=== PATIENT | female | born 1985 | race Caucasian/White ===

== ENCOUNTER → 2016-10-04 | Outpatient (CLI) | payer OTHER ==
[~2016-10-04] MED LIST: ACHD5005 PO; IBP600T1 PO; PREN-115 PO
--- NOTE | 2016-10-04 20:27 | Diagnostic Imaging Report ---
INDICATION: survey. FINDINGS: Tilley intrauterine gestation transversely positioned. The anterior placenta appears unremarkable. There is no abruption or previa. The nondilated cervix is 6 cm in length. No anatomical abnormality at the survey is found. Positioning limits spinal assessment. The size is 20 weeks 1 day reflecting normal growth from initial exam. IMPRESSION: 6 cm nondilated cervix. Transverse positioning measuring 20 weeks 1 day. No abnormality at the anatomical survey. Spinal assessment limited on a positional basis. Dictated by: Dictated on workstation # [id number]
== END ==
LOC: RAD 12:42
PROVIDERS: ATTEND Obstetrics & Gynecology
DX: Z36 Encounter for antenatal screening of mother (principal); Z3A.20 20 weeks gestation of pregnancy
CPT/HCPCS: 76805

== ENCOUNTER → 2016-11-30 | Outpatient (CLI) | payer OTHER ==
--- NOTE | 2016-11-30 11:57 | Diagnostic Imaging Report ---
INDICATION: Incomplete survey. Evaluate spine. TECHNIQUE: Multiple real-time grayscale images were obtained over the gravid uterus. COMPARISON: 10/04/2016. FINDINGS: The heart rate is 139 BPM. The placenta is anterior with no placenta previa. The amniotic fluid index is 14.7 cm. The spine was evaluated and demonstrates no obvious abnormality. The lower spine, however, in particular is not well evaluated due to position. IMPRESSION: The lower spine is not well evaluated due to position. Consider another followup exam to better evaluate. Dictated by: Dictated on workstation # [id number]
== END ==
LOC: RAD 10:06
PROVIDERS: ATTEND Obstetrics & Gynecology
DX: Z36 Encounter for antenatal screening of mother (principal); Z3A.00 Weeks of gestation of pregnancy not specified
CPT/HCPCS: 76816

== ENCOUNTER 2017-01-12 08:05 | Outpatient (CLI) | payer OTHER ==
[2017-01-12] VITALS (11 sets, daily range): BP systolic 100–125; BP diastolic 53–79
[~2017-01-12] VITALS: Ht 175.3 cm; Wt 78.9 kg
[2017-01-12] MEDS ORDERED: ONDANSETRON 4 MG/2 ML (SDV) Z0FRAN IVP PRN (08:45)
[2017-01-12] MEDS ORDERED: NS IV 1000 ML 1,000 ML IV SCH (08:45)
[2017-01-12] MEDS ORDERED: CATHETER FLUSH 10 ML SYR IV PRN (09:00)
[2017-01-12 09:19] LABS: BASOPHILS % (AUTO) 0 % (0-10); EOSINOPHILS % (AUTO) 0 % (0-10); LYMPHOCYTES # (AUTO) 1.3 X 10^3 (1.0-4.0); LYMPHOCYTES % (AUTO) 10 % (12-44); MEAN CORPUSCULAR HEMOGLOBIN 30 PG (25-34); MEAN CORPUSCULAR HGB CONC 34 G/DL (32-36); MEAN CORPUSCULAR VOLUME 90 FL (80-99); MEAN PLATELET VOLUME 10.5 FL (7.4-10.4); MONOCYTES # (AUTO) 0.6 X 10^3 (0.0-1.0); MONOCYTES % (AUTO) 4 % (0-12); NEUTROPHILS % (AUTO) 85 % (42-75); PLATELET COUNT 172 10^3/uL (130-400); RED BLOOD COUNT 4.15 10^6/uL (4.35-5.85); RED CELL DISTRIBUTION WIDTH 15.4 % (10.0-14.5); WHITE BLOOD COUNT 12.9 10^3/uL (4.3-11.0)
[2017-01-12 09:38] LABS: ALANINE AMINOTRANSFERASE 15 U/L (0-55); ALBUMIN 3.4 GM/DL (3.2-4.5); ANION GAP 9 MMOL/L (5-14); ASPARTATE AMINO TRANSFERASE 18 U/L (5-34); BILIRUBIN,TOTAL 0.5 MG/DL (0.1-1.0); BLOOD UREA NITROGEN 9 MG/DL (7-18); BUN/CREATININE RATIO 12; CARBON DIOXIDE 25 MMOL/L (21-32); CHLORIDE 104 MMOL/L (98-107); CREATININE SERUM 0.76 MG/DL (0.60-1.30); GFR ESTIMATED > 60; GLUCOSE 101 MG/DL (70-105); MAGNESIUM 1.6 MG/DL (1.8-2.4); POTASSIUM 3.8 MMOL/L (3.6-5.0); SODIUM 138 MMOL/L (135-145); TOTAL PROTEIN 6.6 GM/DL (6.4-8.2)
[2017-01-12] MEDS: D5 LR IV SOLUTION 1,000 ML IV SCH ×2 (10:27→15:46)
--- NOTE | 2017-01-12 10:27 | History & Physical-OB/GYN ---
History of Present Illness History of Present Illness Date of Admission I consulted on this patient on 01/12/17 10:26 Attending Physician Alvino Gustafson DO Admitting Physician Chelsie Yoo MD Consult Allergies and Home Medications Allergies Coded Allergies: oxacillin sodium (Verified Allergy, Mild, HIVES, 03/21/13) Home Medications Hydrocodone Bit/Acetaminophen 1 Tab Tablet, 1 TAB PO Q4H PRN, #15 Ref 0 Prescribed by: FREDA ELISE on 03/24/13 1219 Ibuprofen 600 Mg Tab, 600 MG PO Q6H, #40 Ref 1 Prescribed by: FREDA ELISE on 03/24/13 1219 Vit #108/Iron/Fa 1 Each Tablet, 1 EACH PO DAILY, (Reported) Past Jolkhrd-Xmcykm-Xwidvu Hx Patient Social History Smoking Status: Never a Smoker Physical Abuse Screen: No Sexual Abuse: No Recent Foreign Travel: No Contact w/other who traveled: No Recent Infectious Disease Expo: No Immunizations Up To Date Tetanus Booster (TDap): More than 5yrs Surgeries HX Surgeries: Yes Respiratory Hx Respiratory Disorders: No Cardiovascular Hx Cardiovascular Disorders: No Neurological Hx Neurological Disorders: No Reproductive System Hx : 2 Hx Para: 1 Hx Reproductive Disorders: No Genitourinary Hx Genitourinary Disorders: No Gastrointestinal Hx Gastrointestinal Disorders: No Musculoskeletal Hx Musculoskeletal Disorders: No Endocrine Hx Endocrine Disorders: No HEENT HX ENT Disorders: No Cancer Hx Cancer: No Psychosocial Hx Psychiatric Problems: Yes (ocd ) Behavioral Health Disorders: Depression Integumentary HX Skin/Integumentary Disorder: No Blood Transfusions Hx Blood Disorders: No Adverse Reaction to a Blood Tr: No Physical Exam Physical Exam Vital Signs Vital Signs Date Time Temp Pulse Resp B/P (MAP) Pulse Ox O2 Delivery O2 Flow Rate FiO2 01/12/17 08:13 75 18 100/60 Room Air Capillary Refill : Labs Laboratory Tests 01/12/17 09:05: White Blood Count 12.9H, Red Blood Count 4.15L, Hemoglobin 12.5, Hematocrit 37, Mean Corpuscular Volume 90, Mean Corpuscular Hemoglobin 30, Mean Corpuscular Hemoglobin Concent 34, Red Cell Distribution Width 15.4H, Platelet Count 172, Mean Platelet Volume 10.5H, Neutrophils (%) (Auto) 85H, Lymphocytes (%) (Auto) 10L, Monocytes (%) (Auto) 4, Eosinophils (%) (Auto) 0, Basophils (%) (Auto) 0, Neutrophils # (Auto) 11.0H, Lymphocytes # (Auto) 1.3, Monocytes # (Auto) 0.6, Eosinophils # (Auto) 0.0, Basophils # (Auto) 0.0, Sodium Level 138, Potassium Level 3.8, Chloride Level 104, Carbon Dioxide Level 25, Anion Gap 9, Blood Urea Nitrogen 9, Creatinine 0.76, Estimat Glomerular Filtration Rate > 60, BUN/ Creatinine Ratio 12, Glucose Level 101, Calcium Level 9.0, Magnesium Level 1.6L , Total Bilirubin 0.5, Aspartate Amino Transf (AST/SGOT) 18, Alanine Aminotransferase (ALT/SGPT) 15, Alkaline Phosphatase 96, Total Protein 6.6, Albumin 3.4 FREDA ELISE DO Jan 12, 2017 10:26
[2017-01-12] MEDS ORDERED: MAGNESIUM OXIDE (MAG-OX)400 MG TAB PO NR (10:30)
[2017-01-12] MEDS ORDERED: FERR325C PO (11:16)
[2017-01-12] MEDS ORDERED: SERT25TA PO (11:16)
[2017-01-12] MEDS ORDERED: PREN-53 PO (11:16)
--- NOTE | 2017-01-12 12:26 | Consultation-Cardiology ---
HPI-Cardiology Cardiology Consultation Date of Consultation 01/12/17 Date of Admission Time Seen by Provider: 12:21 Indication: syncope HPI 31 years old lady with history of anxiety, 35 weeks , was in her usual state of health until this morning when she started feeling lightheaded and dizzy while driving her kid to the day care center, sat down in her car for a little bit then felt better, came to our office and felt slightly dizzy, sat down and try to lift her legs then she had a full syncopal episode she was unresponsive for about 15 seconds, was brought up to the labor and delivery suite and started on IV fluid, denied any similar episode, felt slightly dizzy last week but no syncope was reported, denied any chest pain or palpitation, no shortness of breath, noted to be borderline bradycardic and hypotensive, reported that her blood pressure is usually low previously. Home Medications & Allergies Allergies: Coded Allergies: oxacillin sodium (Verified Allergy, Mild, HIVES, 03/21/13) Home Medication List Reviewed: Yes [facility] Hx Patient Social History Marital Status: Employed/Student: employed Alcohol Use: Denies Use Smoking Status: Never a Smoker Recent Foreign Travel: No Recent Infectious Disease Expo: No Physical Abuse Screen: No Sexual Abuse: No Immunizations Up To Date Tetanus Booster (TDap): More than 5yrs Past Medical History no known past medical history Family Medical History Family Medical Hx mother had history of mitral valve prolapse Constitutional: see HPI, dizziness, weakness EENTM: no symptoms reported, see HPI Respiratory: no symptoms reported, see HPI Cardiovascular: see HPI, No chest pain, edema, No Hx of Intervention, No palpitations, syncope, No vascular heart diseas, No other Gastrointestinal: no symptoms reported, see HPI Genitourinary: no symptoms reported, see HPI Musculoskeletal: no symptoms reported, see HPI Skin: no symptoms reported, see HPI Psychiatric/Neurological: No Symptoms Reported, See HPI, Anxiety Reviewed Test Results Reviewed Test Results Lab Laboratory Tests Test 01/12/17 09:05 Range/Units White Blood Count 12.9 H 4.3-11.0 10^3/uL Red Blood Count 4.15 L 4.35-5.85 10^6/uL Hemoglobin 12.5 11.5-16.0 G/DL Hematocrit 37 35-52 % Mean Corpuscular Volume 90 80-99 FL Mean Corpuscular Hemoglobin 30 25-34 PG Mean Corpuscular Hemoglobin Concent 34 32-36 G/DL Red Cell Distribution Width 15.4 H 10.0-14.5 % Platelet Count 172 130-400 10^3/uL Mean Platelet Volume 10.5 H 7.4-10.4 FL Neutrophils (%) (Auto) 85 H 42-75 % Lymphocytes (%) (Auto) 10 L 12-44 % Monocytes (%) (Auto) 4 0-12 % Eosinophils (%) (Auto) 0 0-10 % Basophils (%) (Auto) 0 0-10 % Neutrophils # (Auto) 11.0 H 1.8-7.8 X 10^3 Lymphocytes # (Auto) 1.3 1.0-4.0 X 10^3 Monocytes # (Auto) 0.6 0.0-1.0 X 10^3 Eosinophils # (Auto) 0.0 0.0-0.3 10^3/uL Basophils # (Auto) 0.0 0.0-0.1 10^3/uL Sodium Level 138 135-145 MMOL/L Potassium Level 3.8 3.6-5.0 MMOL/L Chloride Level 104 98-107 MMOL/L Carbon Dioxide Level 25 21-32 MMOL/L Anion Gap 9 5-14 MMOL/L Blood Urea Nitrogen 9 7-18 MG/DL Creatinine 0.76 0.60-1.30 MG/DL Estimat Glomerular Filtration Rate > 60 BUN/Creatinine Ratio 12 Glucose Level 101 70-105 MG/DL Calcium Level 9.0 8.5-10.1 MG/DL Magnesium Level 1.6 L 1.8-2.4 MG/DL Total Bilirubin 0.5 0.1-1.0 MG/DL Aspartate Amino Transf (AST/SGOT) 18 5-34 U/L Alanine Aminotransferase (ALT/SGPT) 15 0-55 U/L Alkaline Phosphatase 96 40-136 U/L Total Protein 6.6 6.4-8.2 GM/DL Albumin 3.4 3.2-4.5 GM/DL Physical Exam Vital Signs Vital Sign - Last 12Hours 01/12/17 08:13 Pulse 75 Resp 18 B/P (MAP) 100/60 O2 Delivery Room Air Capillary Refill : General Appearance: No Apparent Distress, WD/WN Eyes: Bilateral Eye EOMI, Bilateral Eye Normal Inspection, Bilateral Eye PERRL HEENT: PERRL/EOMI, TMs Normal, Normal ENT Inspection, Pharynx Normal Neck: Full Range of Motion, Normal Inspection, Non Tender, Supple, Carotid Bruit Respiratory: Chest Non Tender, Lungs Clear, Normal Breath Sounds, No Accessory Muscle Use, No Respiratory Distress Cardiovascular: Regular Rate, Rhythm, No Edema, No Gallop, No JVD, No Murmur, Normal Peripheral Pulses Gastrointestinal: Normal Bowel Sounds, No Organomegaly, No Pulsatile Mass, Non Tender, Soft, Other () Back: Normal Inspection, No CVA Tenderness, No Vertebral Tenderness Extremity: Normal Capillary Refill, Normal Inspection, Normal Range of Motion, Non Tender, No Calf Tenderness, No Pedal Edema Neurologic/Psychiatric: Alert, Oriented x3, No Motor/Sensory Deficits, Normal Mood/Affect Skin: Normal Color, Warm/Dry Lymphatic: No Adenopathy A/P-Cardiology Admission Diagnosis Syncope Hypomagnesemia Hypotension Assessment/Plan Syncope, appeared to be orthostatic, most probably vasovagal in nature, feeling better at this time, heart rate and blood pressure is better, agree with aggressive IV fluid, educated in length about condition, I will evaluate echocardiogram, evaluate TSH. Her lab work otherwise including electrolytes did not show any significant abnormality except for mild hypomagnesemia. I will replace magnesium. Hypotension, patient is reporting history of hypotension. Continue to monitor, educated on increasing salt and fluid intake. , 35 weeks, followed by Dr. Collin Tate, maintained on Zoloft. Family history of mitral valve prolapse. MOE HURTADO MD Jan 12, 2017 12:26
[2017-01-12] MEDS ORDERED: MAGNESIUM OXIDE (MAG-OX)400 MG TAB PO SCH (13:00)
[2017-01-12] MEDS: BETAMETHASONE ACE/NA PHOS 6 MG/ML (CELESTONE SOLUSPAN) IM SCH (14:01)
[2017-01-12] MEDS ORDERED: MAGN400T6 PO (15:07)
--- NOTE | 2017-01-12 15:11 | Discharge Inst-Women's Service ---
Discharge Inst-Women's Serv Depart Medication/Instructions New, Converted or Re-Newed RX: Transmitted to Pharmacy Instructions continue current meds and add magnesium oxide Increase fluid intake (at least 64 ounces daily) increase salt intake Final Diagnosis vasovagal syncope third trimester hypomagnesemia anxiety Consults/Follow Up Additional Follow Up: Yes (1 week with Collin) Activity Activity: Activity as Tolerated Driving Instructions: You May Drive NO SMOKING: NO SMOKING Nothing Inside Vagina: No Douching, No Diamond, No Tampons Diet Discharge Diet: No Restrictions, Other Diet (high sodium) Symptoms to Report to : Swelling Increased, Wt Gain Consecutive Days, Dizziness/Fainting, Nausea/Vomiting labor, rupture of membranes vaginal bleeding For Any Problems or Questions: Contact Your Physician FREDA ELISE DO Jan 12, 2017 15:11
[2017-01-13] MEDS ORDERED: BETAMETHASONE ACE/NA PHOS 6 MG/ML (CELESTONE SOLUSPAN) ONE ×2 (14:50→15:10)
[2017-01-13] MEDS: BETAMETHASONE ACE/NA PHOS 6 MG/ML (CELESTONE SOLUSPAN) IM SCH (15:00)
== END 2017-01-12 17:20 | disposition home or self-care (01) ==
LOC: LDRP 08:05 → WSo 08:05 → LDRP 15:24 → 3RD 15:24 → WSo 17:20
PROVIDERS: ATTEND Obstetrics & Gynecology
DX: O99.89 Other specified diseases and conditions complicating pregnancy, childbirth and the puerperium (principal); R55 Syncope and collapse; O99.413 Diseases of the circulatory system complicating pregnancy, third trimester; I95.9 Hypotension, unspecified; O99.343 Other mental disorders complicating pregnancy, third trimester; F41.9 Anxiety disorder, unspecified; Z3A.35 35 weeks gestation of pregnancy
CPT/HCPCS: 36415; 80053; 83735; 84443; 85025; 93005; 93306; 96360; 96361; 96372; 99213

== ENCOUNTER 2017-02-10 03:33 | Outpatient (CLI) | payer OTHER ==
[2017-02-10 03:16] VITALS: BP 102/60
[~2017-02-10 03:33] MED LIST changes: +FERR325C PO; +MAGN400T6 PO; +PREN-53 PO; +SERT25TA PO
--- NOTE | 2017-02-13 11:22 | Physician Query-Final Dx ---
KALEB GRIFFITH 02/13/17 1121: Clinic Account Progress/Dx Physician Query: Please give diagnosis Date of Service Feb 10, 2017 at 03:33 VIKY LOWERY DO 02/15/17 1031: Clinic Account Progress/Dx DIAGNOSIS: Diagnosis 38 week IUP, Decreased movement KALEB GRIFFITH Feb 13, 2017 11:21 VIKY LOWERY DO Feb 15, 2017 10:31
[2017-02-15] MEDS ORDERED: IBUP-1773 PO (12:58)
[2017-02-15] MEDS ORDERED: DOCU100C37 PO (12:58)
== END 2017-02-10 04:10 | disposition home or self-care (01) ==
LOC: WSo 03:33 → LDRP 03:34 → WSo 04:10
PROVIDERS: ATTEND Obstetrics & Gynecology
DX: O36.8130 Decreased fetal movements, third trimester, not applicable or unspecified (principal); Z3A.38 38 weeks gestation of pregnancy
CPT/HCPCS: 99213

== ENCOUNTER 2017-02-14 05:19 | Inpatient (IN) | payer OTHER ==
[2017-02-14] VITALS (57 sets, daily range): BP systolic 91–124; BP diastolic 55–78
[~2017-02-14] VITALS: Ht 172.7 cm; Wt 79.1 kg
[2017-02-14 05:41] LABS: BILIRUBIN,URINE NEGATIVE (NEGATIVE); KETONES,URINE NEGATIVE (NEGATIVE); LEUKOCYTE ESTERASE ,URINE NEGATIVE (NEGATIVE); NITRITE,URINE NEGATIVE (NEGATIVE); PH,URINE 6.5 (5-9); PROTEIN,URINE NEGATIVE (NEGATIVE); UROBILINOGEN,URINE NORMAL (NORMAL)
[2017-02-14 05:48] LABS: SQUAMOUS EPITHELIAL CELL,UR 0-2 /HPF
[2017-02-14] MEDS ORDERED: FLUV100T3 PO (06:02)
[2017-02-14] MEDS ORDERED: D5 LR IV SOLUTION 1,000 ML IV ONE (06:27)
[2017-02-14] MEDS: D5 LR IV SOLUTION 1,000 ML IV SCH ×2 (06:50→11:44)
[2017-02-14] MEDS ORDERED: MISOPROSTOL 100 MCG (CYTOTEC) TAB PO ONE (07:15)
[2017-02-14] MEDS ORDERED: D5 LR IV SOLUTION 1,000 ML IV SCH (07:16)
[2017-02-14 07:26] LABS: BASOPHILS % (AUTO) 0 % (0-10); EOSINOPHILS % (AUTO) 0 % (0-10); LYMPHOCYTES # (AUTO) 1.4 X 10^3 (1.0-4.0); LYMPHOCYTES % (AUTO) 14 % (12-44); MEAN CORPUSCULAR HEMOGLOBIN 31 PG (25-34); MEAN CORPUSCULAR HGB CONC 34 G/DL (32-36); MEAN CORPUSCULAR VOLUME 89 FL (80-99); MEAN PLATELET VOLUME 10.4 FL (7.4-10.4); MONOCYTES # (AUTO) 0.6 X 10^3 (0.0-1.0); MONOCYTES % (AUTO) 6 % (0-12); NEUTROPHILS # (AUTO) 7.7 X 10^3 (1.8-7.8); NEUTROPHILS % (AUTO) 80 % (42-75); PLATELET COUNT 177 10^3/uL (130-400); RED BLOOD COUNT 4.02 10^6/uL (4.35-5.85); RED CELL DISTRIBUTION WIDTH 14.7 % (10.0-14.5); WHITE BLOOD COUNT 9.7 10^3/uL (4.3-11.0)
[2017-02-14] MEDS ORDERED: MINERAL OIL CONCENTRATE 99.9% 15 ML UDC TOP PRN (07:30)
[2017-02-14] MEDS ORDERED: OXYTOCIN/NORMAL SALINE 500 ML IV SCH ×2 (11:41→17:40)
--- NOTE | 2017-02-14 11:43 | Progress Note-Standard ---
Standard Progress Note Progress Notes/Assess & Plan Date Seen by Provider: Feb 14, 2017 Time Seen by Provider: 11:40 Progress/Assessment & Plan Patient scheduled for induction today. However, she was admitted in labor. well being today. Vital Sign - Last 12Hours 02/14/17 02/14/17 02/14/17 02/14/17 05:40 07:35 08:05 08:35 Temp 98.4 98.3 Pulse 118 66 68 67 Resp 20 18 18 18 B/P (MAP) 92/62 107/65 106/64 100/63 O2 Delivery Room Air Room Air Room Air Room Air 02/14/17 02/14/17 09:05 09:35 Pulse 69 71 Resp 18 18 B/P (MAP) 105/68 107/69 O2 Delivery Room Air Room Air Laboratory Tests Test 02/14/17 05:30 02/14/17 06:50 Range/Units Urine Color YELLOW Urine Clarity CLEAR Urine pH 6.5 5-9 Urine Specific Cameron 1.010 L 1.016-1.022 Urine Protein NEGATIVE NEGATIVE Urine Glucose (UA) NEGATIVE NEGATIVE Urine Ketones NEGATIVE NEGATIVE Urine Nitrite NEGATIVE NEGATIVE Urine Bilirubin NEGATIVE NEGATIVE Urine Urobilinogen NORMAL NORMAL MG/DL Urine Leukocyte Esterase NEGATIVE NEGATIVE Urine RBC (Auto) NEGATIVE NEGATIVE Urine RBC NONE /HPF Urine WBC NONE /HPF Urine Squamous Epithelial Cells 0-2 /HPF Urine Crystals NONE /LPF Urine Bacteria TRACE /HPF Urine Casts NONE /LPF Urine Mucus SMALL H /LPF Urine Culture Indicated NO White Blood Count 9.7 4.3-11.0 10^3/uL Red Blood Count 4.02 L 4.35-5.85 10^6/uL Hemoglobin 12.3 11.5-16.0 G/DL Hematocrit 36 35-52 % Mean Corpuscular Volume 89 80-99 FL Mean Corpuscular Hemoglobin 31 25-34 PG Mean Corpuscular Hemoglobin Concent 34 32-36 G/DL Red Cell Distribution Width 14.7 H 10.0-14.5 % Platelet Count 177 130-400 10^3/uL Mean Platelet Volume 10.4 7.4-10.4 FL Neutrophils (%) (Auto) 80 H 42-75 % Lymphocytes (%) (Auto) 14 12-44 % Monocytes (%) (Auto) 6 0-12 % Eosinophils (%) (Auto) 0 0-10 % Basophils (%) (Auto) 0 0-10 % Neutrophils # (Auto) 7.7 1.8-7.8 X 10^3 Lymphocytes # (Auto) 1.4 1.0-4.0 X 10^3 Monocytes # (Auto) 0.6 0.0-1.0 X 10^3 Eosinophils # (Auto) 0.0 0.0-0.3 10^3/uL Basophils # (Auto) 0.0 0.0-0.1 10^3/uL AROM clear fluid. Epidural. Augment as needed. FREDA ELISE DO Feb 14, 2017 11:43
[2017-02-14] MEDS ORDERED: OXYTOCIN/NORMAL SALINE 500 ML IV ONE (11:44)
[2017-02-14] MEDS ORDERED: PROMETHAZINE INJ 25 MG/ML (PHENERGAN) AMP IVP PRN (11:45)
[2017-02-14] MEDS ORDERED: fentaNYL INJECTION 100 MCG/2 ML AMP IVP PRN (11:45)
[2017-02-14] MEDS ORDERED: SUFENTA 0.6MCG/ML BUPIVA 0.125 100 ML ONE (12:47)
[2017-02-14] MEDS ORDERED: BUPIVACAINE 0.25% 30 ML (SENSORCAINE) VIAL ONE (12:57)
[2017-02-14] MEDS ORDERED: fentaNYL INJECTION 100 MCG/2 ML AMP ONE (12:57)
[2017-02-14] MEDS ORDERED: LACTATED RINGERS 1,000 ML IV ONE (13:38)
[2017-02-14] MEDS ORDERED: EPIDURAL (SUFENTA 0.6MCG/ML BUPIVA 0.125%) 100 ML BAG EPI SCH (13:45)
[2017-02-14] MEDS ORDERED: ONDANSETRON 4 MG/2 ML (SDV) Z0FRAN IV PRN (13:45)
[2017-02-14] MEDS ORDERED: diphenhydrAMINE 50 MG/ML INJ (BENADRYL) IV PRN (13:45)
[2017-02-14] MEDS ORDERED: CATHETER FLUSH 10 ML SYR IV PRN (13:45)
[2017-02-14] MEDS ORDERED: NALOXONE 0.4 MG/ML 1 ML (NARCAN) VIAL IV PRN (13:45)
[2017-02-14] MEDS ORDERED: CATHETER FLUSH 10 ML SYR IV SCH ×2 (14:00→22:00)
[2017-02-14] MEDS ORDERED: LIDOCAINE/EPI 1%-1:200,000 (XYLOCAINE) 30 ML VIAL ONE (16:39)
--- NOTE | 2017-02-14 17:42 | OB Labor & Delivery Record ---
Vag Delivery Note Vag Delivery Note Date of Delivery: 02/14/17 Preoperative Diagnosis: Magali Wagner is a 31 /Para 2 / 1, Gestational Age 39 6/7 weeks in early labor, augmented Postoperative Diagnosis: Same Surgeon: FREDA ELISE Anesthesia: epidural Delivery Type: spontaneous vaginal Findings: Viable female infant, apgars 5/7/8, weight pending Lacerations: 2nd degree Intact placenta with 3 vessel cord. No nuchal cord, body cord or shoulder dystocia Estimated Blood Loss: 250 ml Complications: None Condition: Stable Description of Procedure: The patient is a 31 /Para 2 / 1,Gestational Age 39 6/7 weeks in early labor . She was admitted and informed consent was obtained. Her labor course was remarkable for AROM and augmentation. She progressed to complete dilatation and began to push. She was then set up for delivery. The infant's head was delivered atraumatically in the OA position. The shoulders and remainder of the 's body were then delivered without difficulty. Upon delivery, the head was held below the level of the perineum and the mouth and nares were bulb suctioned. The cord was doubly clamped and cut and the infant was handed off to the pediatric staff. An intact placenta with 3-vessel cord delivered via Chery and there was found to be minimal bleeding.~ Vigorous fundal massage was performed and the fundus was found to be firm. IV oxytocin was given. Examination of the vagina and perineum revealed a 2nd laceration repaired in the usual fashion with 3-0 vicryl suture. Following the repair, sponge, instrument and needle counts were correct. Mom and baby were both in stable condition in the labor suite. Vitals - Labs Vital Signs - I&O Vital Signs Date Time Temp Pulse Resp B/P (MAP) Pulse Ox O2 Delivery O2 Flow Rate FiO2 02/14/17 11:35 97.8 70 18 105/65 Room Air 02/14/17 11:05 65 18 109/66 Room Air 02/14/17 10:35 98.7 67 18 104/63 Room Air 02/14/17 10:05 72 18 108/58 Room Air 02/14/17 09:35 71 18 107/69 Room Air 02/14/17 09:05 69 18 105/68 Room Air 02/14/17 08:35 67 18 100/63 Room Air 02/14/17 08:05 68 18 106/64 Room Air 02/14/17 07:35 98.3 66 18 107/65 Room Air 02/14/17 05:40 98.4 118 20 92/62 Room Air Labs Laboratory Tests 02/14/17 05:30: Urine Color YELLOW, Urine Clarity CLEAR, Urine pH 6.5, Urine Specific Norris 1.010L, Urine Protein NEGATIVE, Urine Glucose (UA) NEGATIVE, Urine Ketones NEGATIVE, Urine Nitrite NEGATIVE, Urine Bilirubin NEGATIVE, Urine Urobilinogen NORMAL, Urine Leukocyte Esterase NEGATIVE, Urine RBC (Auto) NEGATIVE, Urine RBC NONE, Urine WBC NONE, Urine Squamous Epithelial Cells 0-2, Urine Crystals NONE, Urine Bacteria TRACE, Urine Casts NONE, Urine Mucus SMALLH, Urine Culture Indicated NO 02/14/17 06:50: White Blood Count 9.7, Red Blood Count 4.02L, Hemoglobin 12.3, Hematocrit 36, Mean Corpuscular Volume 89, Mean Corpuscular Hemoglobin 31, Mean Corpuscular Hemoglobin Concent 34, Red Cell Distribution Width 14.7H, Platelet Count 177, Mean Platelet Volume 10.4, Neutrophils (%) (Auto) 80H, Lymphocytes (%) (Auto) 14 , Monocytes (%) (Auto) 6, Eosinophils (%) (Auto) 0, Basophils (%) (Auto) 0, Neutrophils # (Auto) 7.7, Lymphocytes # (Auto) 1.4, Monocytes # (Auto) 0.6, Eosinophils # (Auto) 0.0, Basophils # (Auto) 0.0 FREDA EILSE DO Feb 14, 2017 17:42
[2017-02-14] MEDS ORDERED: BENZOCAINE/MENTHOL (DERMOPLAST) 56 ML CAN TP PRN (17:45)
[2017-02-14] MEDS ORDERED: PATIENT MAY USE OWN MED,SINGLE MED PO SCH (17:45)
[2017-02-14] MEDS ORDERED: TETANUS,DIPTH,PERTUSS P/F (BOOSTRIX) 0.5 ML VIAL IM ONE (17:45)
[2017-02-14] MEDS ORDERED: WITCH HAZEL(TUCKS) 40 EA JAR TOP PRN (17:45)
[2017-02-14] MEDS ORDERED: MEASLES,MUMPS,RUBELLA 1 EA INJ SQ ONE (17:45)
[2017-02-14] MEDS ORDERED: HYDROcodone/APAP 5 MG/325 MG (LORTAB) TAB PO PRN (17:45)
[2017-02-14] MEDS: IBUPROFEN 600 MG (MOTRIN) TAB PO SCH (18:30)
[2017-02-14] MEDS: DOCUSATE SODIUM 100 MG (COLACE) CAP PO SCH (21:10)
[2017-02-15 00:25] VITALS: BP 98/55
[2017-02-15] MEDS: IBUPROFEN 600 MG (MOTRIN) TAB PO SCH ×3 (00:25→14:13)
[2017-02-15 05:30] VITALS: BP 90/54
[2017-02-15 06:06] LABS: BASOPHILS % (AUTO) 0 % (0-10); EOSINOPHILS # (AUTO) 0.1 10^3/uL (0.0-0.3); EOSINOPHILS % (AUTO) 1 % (0-10); LYMPHOCYTES # (AUTO) 1.7 X 10^3 (1.0-4.0); LYMPHOCYTES % (AUTO) 14 % (12-44); MEAN CORPUSCULAR HEMOGLOBIN 31 PG (25-34); MEAN CORPUSCULAR HGB CONC 34 G/DL (32-36); MEAN CORPUSCULAR VOLUME 90 FL (80-99); MEAN PLATELET VOLUME 9.9 FL (7.4-10.4); MONOCYTES # (AUTO) 0.8 X 10^3 (0.0-1.0); MONOCYTES % (AUTO) 7 % (0-12); NEUTROPHILS # (AUTO) 9.1 X 10^3 (1.8-7.8); NEUTROPHILS % (AUTO) 79 % (42-75); PLATELET COUNT 166 10^3/uL (130-400); RED CELL DISTRIBUTION WIDTH 14.6 % (10.0-14.5); WHITE BLOOD COUNT 11.6 10^3/uL (4.3-11.0)
[2017-02-15] MEDS ORDERED: PRENATAL VITAMIN 1 EA TAB PO SCH (07:00)
[2017-02-15 08:14] VITALS: BP 101/67
--- NOTE | 2017-02-15 08:28 | Postpartum Progress Note ---
Note Note Day # 1 s/p Subjective: Patient is without complaints. Ambulating, voiding. Tolerating a regular diet without nausea or vomiting. Normal lochia. Pain is well controlled with oral pain medications. breast feeding. Objective: Laboratory Tests Test 02/15/17 05:52 Range/Units White Blood Count 11.6 H 4.3-11.0 10^3/uL Red Blood Count 3.50 L 4.35-5.85 10^6/uL Hemoglobin 10.7 L 11.5-16.0 G/DL Hematocrit 31 L 35-52 % Mean Corpuscular Volume 90 80-99 FL Mean Corpuscular Hemoglobin 31 25-34 PG Mean Corpuscular Hemoglobin Concent 34 32-36 G/DL Red Cell Distribution Width 14.6 H 10.0-14.5 % Platelet Count 166 130-400 10^3/uL Mean Platelet Volume 9.9 7.4-10.4 FL Neutrophils (%) (Auto) 79 H 42-75 % Lymphocytes (%) (Auto) 14 12-44 % Monocytes (%) (Auto) 7 0-12 % Eosinophils (%) (Auto) 1 0-10 % Basophils (%) (Auto) 0 0-10 % Neutrophils # (Auto) 9.1 H 1.8-7.8 X 10^3 Lymphocytes # (Auto) 1.7 1.0-4.0 X 10^3 Monocytes # (Auto) 0.8 0.0-1.0 X 10^3 Eosinophils # (Auto) 0.1 0.0-0.3 10^3/uL Basophils # (Auto) 0.0 0.0-0.1 10^3/uL Vital Sign - Last 12Hours 02/14/17 02/15/17 02/15/17 02/15/17 22:40 00:25 05:30 08:14 Temp 98.4 98.6 97.4 97.7 Pulse 81 74 72 66 Resp 18 18 18 18 B/P (MAP) 95/60 98/55 90/54 101/67 Pulse Ox 97 96 97 97 O2 Delivery Room Air Room Air Room Air Room Air Intake and Output 02/15/17 00:00 Intake Total 2200 ml Balance 2200 ml Physical Exam: General - Alert and oriented, no apparent distress Abdomen - Soft, appropriately tender to palpation, non-distended, fundus firm at umbilicus Extremities - no edema, negative Mary's bilaterally Assessment: 1. post- day # 1, status post spon vaginal delivery. Recovering well, hemodynamically stable 2. Anxiety d/o, stable Plan: Routine care. Encourage breast feeding. Encourage ambulation. Ferrous sulfate supplementation. Plan for discharge Vitals - Labs Vital Signs - I&O Vital Signs Date Time Temp Pulse Resp B/P (MAP) Pulse Ox O2 Delivery O2 Flow Rate FiO2 02/15/17 08:14 97.7 66 18 101/67 97 Room Air 02/15/17 05:30 97.4 72 18 90/54 97 Room Air 02/15/17 00:25 98.6 74 18 98/55 96 Room Air 02/14/17 22:40 98.4 81 18 95/60 97 Room Air 02/14/17 19:44 18 101/64 Room Air 02/14/17 19:29 69 18 97/62 Room Air 02/14/17 19:15 64 18 102/65 Room Air 02/14/17 18:59 76 18 105/68 Room Air 02/14/17 18:44 18 111/75 Room Air 02/14/17 18:30 83 18 112/68 Room Air 02/14/17 18:15 98.2 73 18 104/58 Room Air 02/14/17 17:59 80 18 124/76 Room Air 02/14/17 17:44 78 18 114/71 Room Air 02/14/17 17:29 81 18 116/72 Room Air 02/14/17 17:17 83 18 118/78 Room Air 02/14/17 17:02 85 18 115/73 Room Air 02/14/17 16:47 75 18 113/72 Room Air 02/14/17 16:32 77 18 93/63 Room Air 02/14/17 16:15 77 18 105/63 Non Rebreather 15.00 02/14/17 16:02 63 18 108/63 Non Rebreather 15.00 02/14/17 15:46 64 18 111/74 Non Rebreather 15.00 02/14/17 15:31 97.6 66 18 109/74 Room Air 02/14/17 15:15 71 18 106/71 Room Air 02/14/17 15:01 64 18 105/68 Room Air 02/14/17 14:48 65 18 111/70 Room Air 02/14/17 14:29 60 18 107/61 Room Air 02/14/17 14:26 61 18 110/64 99 Room Air 02/14/17 14:20 66 18 116/64 100 Room Air 02/14/17 14:16 69 18 108/62 98 Non Rebreather 15.00 02/14/17 14:11 58 18 117/75 100 Non Rebreather 15.00 02/14/17 14:06 63 18 113/55 99 Non Rebreather 15.00 02/14/17 14:01 64 18 108/68 98 Room Air 02/14/17 13:53 62 18 113/64 98 Room Air 02/14/17 13:50 98.0 60 18 108/65 Room Air 02/14/17 13:47 61 18 108/61 98 Room Air 02/14/17 13:44 64 18 106/59 Room Air 02/14/17 13:41 62 18 99/59 96 Room Air 02/14/17 13:38 61 18 101/61 95 Room Air 02/14/17 13:35 63 18 106/61 Room Air 02/14/17 13:32 68 18 103/62 95 Room Air 02/14/17 13:29 59 18 105/62 Room Air 02/14/17 13:26 72 18 108/65 98 Room Air 02/14/17 13:23 71 18 111/72 97 Room Air 02/14/17 13:20 68 18 111/73 Room Air 02/14/17 13:17 67 18 115/76 98 Room Air 02/14/17 13:14 76 18 113/74 Room Air 02/14/17 13:11 74 18 114/70 100 Room Air 02/14/17 13:08 81 18 105/68 97 Room Air 02/14/17 12:37 74 18 91/64 Room Air 02/14/17 12:05 64 18 97/55 Room Air 02/14/17 11:35 97.8 70 18 105/65 Room Air 02/14/17 11:05 65 18 109/66 Room Air 02/14/17 10:35 98.7 67 18 104/63 Room Air 02/14/17 10:05 72 18 108/58 Room Air 8/8/17 09:35 71 18 107/69 Room Air 02/14/17 09:05 69 18 105/68 Room Air 02/14/17 08:35 67 18 100/63 Room Air I & O 02/15/17 07:00 Intake Total 3200 ml Balance 3200 ml Labs Laboratory Tests 02/15/17 05:52: White Blood Count 11.6H, Red Blood Count 3.50L, Hemoglobin 10.7L, Hematocrit 31L , Mean Corpuscular Volume 90, Mean Corpuscular Hemoglobin 31, Mean Corpuscular Hemoglobin Concent 34, Red Cell Distribution Width 14.6H, Platelet Count 166, Mean Platelet Volume 9.9, Neutrophils (%) (Auto) 79H, Lymphocytes (%) (Auto) 14 , Monocytes (%) (Auto) 7, Eosinophils (%) (Auto) 1, Basophils (%) (Auto) 0, Neutrophils # (Auto) 9.1H, Lymphocytes # (Auto) 1.7, Monocytes # (Auto) 0.8, Eosinophils # (Auto) 0.1, Basophils # (Auto) 0.0 FREDA ELISE DO Feb 15, 2017 08:28
[2017-02-15] MEDS ORDERED: FERROUS SULF 325 MG (IRON) TAB PO SCH (09:00)
[2017-02-15 12:35] VITALS: BP 93/59
[2017-02-15] MEDS ORDERED: DOCU100C37 PO (12:58)
[2017-02-15] MEDS ORDERED: IBUP-1773 PO (12:58)
--- NOTE | 2017-02-15 13:00 | Discharge Inst-Simple/Standard ---
Discharge Inst-Standard Patient Instructions/Follow Up Plan of Care/Instructions/FU: return in 2 weeks and 6 weeks Activity as Tolerated: Yes Discharge Diet: No Restrictions Return to [facility] For: bleeding greater than 1 pad per hour, foul vaginal discharge, excessive pain FREDA ELISE DO Feb 15, 2017 13:00
--- NOTE | 2017-02-15 14:04 | Anesthesia-Regional Post-Op ---
Regional Patient Condition Mental Status: Alert, Oriented x3 Circulation: Same as Pre-Op Headache: Absent Sensation: Full Recovery Motor Block: Absent Post Op Complications Complications None Follow Up Care/Instructions Patient Instructions None needed. Anesthesia/Patient Condition Patient is doing well, no complaints, stable vital signs, no apparent adverse anesthesia problems. No complications reported per nursing. NICOLÁS ARTIS CRNA Feb 15, 2017 14:04
[2017-02-15] MEDS: DOCUSATE SODIUM 100 MG (COLACE) CAP PO SCH (14:13)
--- NOTE | 2017-02-17 15:15 | Physician Query-Final Dx ---
SONAL MCMAHON 02/17/17 1515: Final Diagnosis Give Final Diagnosis Please give Final Diagnosis FREDA ELISE DO 03/09/17 0636: Final Diagnosis Give Final Diagnosis labor at term vaginal delivery 2nd degree laceration epidural OCD. SONAL MCMAHON Feb 17, 2017 15:15 FREDA ELISE DO Mar 09, 2017 06:36
== END 2017-02-15 18:55 | disposition home or self-care (01) | DRG 775 ==
LOC: WSo 05:19 → LDRP 05:20 → WSo 07:00 → LDRP 07:00 → 3RD 09:21 → LDRP 09:21
PROVIDERS: ADMIT Obstetrics & Gynecology; ATTEND Obstetrics & Gynecology
PROC: 0KQM0ZZ Repair Perineum Muscle, Open Approach (ICD-10-PCS; principal; 2017-02-14)
PROC: 10E0XZZ Delivery of Products of Conception, External Approach (ICD-10-PCS; 2017-02-14)
DX: O70.1 Second degree perineal laceration during delivery (principal); O99.345 Other mental disorders complicating the puerperium; F41.9 Anxiety disorder, unspecified; Z3A.39 39 weeks gestation of pregnancy; Z37.0 Single live birth
CPT/HCPCS: 36415; 81000; 85025; 86850; 86900; 86901; 99212

== ENCOUNTER → 2018-08-28 | Outpatient (CLI) | payer OTHER ==
[2018-08-28 09:39] LABS: BASOPHILS % (AUTO) 0 % (0-10); EOSINOPHILS # (AUTO) 0.1 10^3/uL (0.0-0.3); EOSINOPHILS % (AUTO) 2 % (0-10); HEMATOCRIT 42 % (35-52); HEMOGLOBIN 14.8 G/DL (11.5-16.0); LYMPHOCYTES # (AUTO) 1.6 X 10^3 (1.0-4.0); LYMPHOCYTES % (AUTO) 26 % (12-44); MEAN CORPUSCULAR HEMOGLOBIN 30 PG (25-34); MEAN CORPUSCULAR HGB CONC 35 G/DL (32-36); MEAN CORPUSCULAR VOLUME 85 FL (80-99); MEAN PLATELET VOLUME 10.3 FL (7.4-10.4); MONOCYTES # (AUTO) 0.4 X 10^3 (0.0-1.0); MONOCYTES % (AUTO) 7 % (0-12); NEUTROPHILS % (AUTO) 65 % (42-75); PLATELET COUNT 242 10^3/uL (130-400); RED CELL DISTRIBUTION WIDTH 12.7 % (10.0-14.5); WHITE BLOOD COUNT 6.1 10^3/uL (4.3-11.0)
[2018-08-28 09:59] LABS: ALANINE AMINOTRANSFERASE 11 U/L (0-55); ALBUMIN 4.7 GM/DL (3.2-4.5); ALKALINE PHOSPHATASE 66 U/L (40-136); BILIRUBIN,TOTAL 0.8 MG/DL (0.1-1.0); BUN/CREATININE RATIO 11; CALCIUM 10.3 MG/DL (8.5-10.1); CARBON DIOXIDE 27 MMOL/L (21-32); CHLORIDE 103 MMOL/L (98-107); CHOLESTEROL 145 MG/DL (< 200); CREATININE SERUM 0.98 MG/DL (0.60-1.30); GFR ESTIMATED > 60; GLUCOSE 93 MG/DL (70-105); HDL CHOLESTEROL 50 MG/DL (40-60); POTASSIUM 4.3 MMOL/L (3.6-5.0); SODIUM 140 MMOL/L (135-145); TOTAL PROTEIN 7.6 GM/DL (6.4-8.2); TRIGLYCERIDES 67 MG/DL (<150); VLDL CHOLESTEROL 13 MG/DL (5-40)
== END ==
LOC: LAB 09:16
PROVIDERS: ATTEND Nurse Practitioner Family
DX: Z00.00 Encounter for general adult medical examination without abnormal findings (principal); F41.1 Generalized anxiety disorder
CPT/HCPCS: 36415; 80053; 80061; 84443; 85025

== ENCOUNTER → 2018-08-29 | Outpatient (CLI) | payer OTHER ==
[~2018-08-29] MED LIST changes: +DOCU100C37 PO; +FLUV100T3 PO; +IBUP-1773 PO
== END ==
LOC: LAB 12:04
PROVIDERS: ATTEND Nurse Practitioner Family
DX: E83.52 Hypercalcemia (principal)
CPT/HCPCS: 36415; 83970

== ENCOUNTER 2018-09-23 10:58 | Emergency (ER) | payer OTHER ==
[~2018-09-23] VITALS: Ht 170.2 cm; Wt 60.3 kg
--- OUTSIDE RECORDS SUMMARY | 2018-09-23 11:04 | XMS REPORT | CCD ---
Author Author [facility] Address [address] [place] [address] Phone Care Team Providers Care Muleser Name Role Phone PP Unavailable CCM Unavailable Summary Purpose Interface Exchange Insurance Providers Payer name Policy type / Coverage type Covered green party ID Effective Begin Date Effective End Date [facility] [place] [id number] Unknown Family history Side Diagnosis Age At Onset No Family Disease Entered N/A Grandfather Diagnosis Age At Onset Hypertension Unknown Father Diagnosis Age At Onset Hypertension Unknown Mother Diagnosis Age At Onset Anemia Unknown Social History Social History Element Codes Description Effective Dates Number of children Unknown 2 05/03/2017 Employment Unknown 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 Unknown Has never used illegal drugs 03/06/2011 Marital status Unknown 03/01/[address]: 962822430 Never smoker 03/01/[address]: 005485383 Never drinks alcohol 03/01/2011 Allergies, Adverse Reactions, Alerts Substance Reaction Codes Entered Date Inactivated Date Status PROSTAPHLIN Unknown 03/01/2011 No Inactive Date Active Past Medical History Illness Codes Condition Status Onset Date Resolved Date Encounter for general adult medical examination with abnormal findings ICD-9: V70.0 ICD-10: Z00.01 Active 08/22/2018 Unknown Generalized anxiety disorder ICD-9: 300.00 ICD-10: F41.1 Active 08/22/2018 Unknown Mastitis without abscess ICD-9: 611.0 ICD-10: N61.0 Active 02/21/2018 Unknown Generalized anxiety disorder ICD-9: 300.02 ICD-10: F41.1 Active 06/14/2017 Unknown Major depressive disorder, recurrent, mild ICD-9: 296.31 ICD-10: F33.0 Active 05/03/2017 Unknown Superficial foreign body of right thumb, initial encounter ICD-9: 915.6 ICD-10: S60.351A Active 06/14/2017 Unknown Encounter for general adult medical examination without abnormal findings ICD-9: V70.0 ICD-10: Z00.00 Active 05/03/2017 Unknown Encounter for gynecological examination (general) (routine ) without abnormal findings ICD-9: V72.31 ICD-10: Z01.419 Active 12/16/2015 Unknown STREP SORE THROAT ICD- 9: 034.0 Active 12/09/2014 Unknown Routine medical exam ICD-9: V70.0 Active 11/17/2014 Unknown Mastitis ICD-9: 611.0 Active 11/25/2013 Unknown ACUTE URI ICD-9: 465.9 Active 07/01/2013 Unknown COUGH ICD-9: 786.2 Active 07/01/2013 Unknown Pruritic condition ICD -9: 698.9 Active 11/28/2011 Unknown Contact with potentially hazardous body fluids ICD-9: V15.85 Active 08/15/2011 Unknown MARGE (generalized anxiety disorder) ICD-9: 300.02 Active 2010 Unknown Obsessive compulsive disorder ICD-9: 300.3 Active 05/18/2011 Unknown Allergies Unknown Active 03/01/2011 Unknown ANXIETY STATE ICD-9: 300.00 Active 03/01/2011 Unknown 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 Active 03/01/2011 Unknown Contact dermatitis and eczema due to plant ICD-9: 692.6 Active 03/01/2011 Unknown Problems Condition Codes Effective Dates Condition Status Encounter for general adult medical examination with abnormal findings ICD-9: V70.0 ICD-10: Z00.01 08/22/2018 Active Generalized anxiety disorder ICD-9: 300.00 ICD-10: F41.1 08/22/2018 Active Mastitis without abscess ICD-9: 611.0 ICD-10: N61.0 02/21/2018 Active Generalized anxiety disorder ICD-9: 300.02 ICD-10: F41.1 06/14/2017 Active Major depressive disorder, recurrent, mild ICD-9: 296.31 ICD-10: F33.0 05/03/2017 Active Superficial foreign body of right thumb, initial encounter ICD-9: 915.6 ICD-10: S60.351A 06/14/2017 Active Encounter for general adult medical examination without abnormal findings ICD-9: V70.0 ICD-10: Z00.00 05/03/2017 Active Encounter for gynecological examination (general) (routine ) without abnormal findings ICD-9: V72.31 ICD-10: Z01.419 12/16/2015 Active STREP SORE THROAT ICD- 9: 034.0 12/09/2014 Active Routine medical exam ICD-9: V70.0 11/17/2014 Active Mastitis ICD-9: 611.0 11/25/2013 Active ACUTE URI ICD-9: 465.9 07/01/2013 Active COUGH ICD-9: 786.2 07/01/2013 Active Pruritic condition ICD -9: 698.9 11/28/2011 Active Contact with potentially hazardous body fluids ICD-9: V15.85 08/15/2011 Active MARGE (generalized anxiety disorder) ICD-9: 300.02 05/18/2011 Active Obsessive compulsive disorder ICD-9: 300.3 05/18/2011 Active Allergies Unknown 03/01/2011 Active ANXIETY STATE ICD-9: 300.00 03/01/2011 Active 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 03/01/2011 Active Contact dermatitis and eczema due to plant ICD-9: 692.6 03/01/2011 Active Medications Medication Codes Instructions Start Date Stop Date Status Fill Instructions fluvoxamine 100 mg tablet RxNorm: 337420 1 Tablet(s) PO BID 08/16/2019 Active Keflex 500 mg capsule RxNorm: 384783 1 Capsule(s) PO TID 201703/02/2018 Inactive fluvoxamine 100 mg tablet RxNorm: 193933 1.5 Tablet(s) PO daily 100mg in morning and 50mg at night 09/01/2017 08/21/2018 Inactive fluvoxamine 100 mg tablet RxNorm: 784417 1.5 Tablet(s) PO daily 100mg in morning and 50mg at night 08/21/2017 08/31/2017 Inactive fluvoxamine 100 mg tablet RxNorm: 973229 1.5 Tablet(s) PO daily 100mg in morning and 50mg at night 05/03/2017 08/20/2017 Inactive Luvox CR 100 mg capsule,extended release RxNorm: 502601 1 Capsule(s) PO daily 02/06/2017 02/06/2017 Inactive TAKE 1 CAPSULE BY MOUTH DAILY;Patient requests 90 day supply Luvox CR 100 mg capsule,extended release RxNorm: 173654 1 Capsule(s) PO daily 07/31/2015 04/25/2016 Inactive TAKE 1 CAPSULE BY MOUTH DAILY;Patient requests 90 day supply nystatin 100,000 unit/mL oral suspension RxNorm: 976481 5 Milliliter(s) SWISH AND SWALLOW PO QID x7 days Thrush 12/18/2014 12/24/2014 Inactive Levaquin 500 mg tablet RxNorm: 852450 1 Tablet(s) PO daily 05/201512/20/2014 Inactive prednisone 20 mg tablet RxNorm: 938775 1 Tablet(s) PO BID 12/1212/16/2014 Inactive Levaquin 500 mg tablet RxNorm: 899273 1 Tablet(s) PO daily 11/201412/17/2014 Inactive Levaquin 500 mg tablet RxNorm: 602284 1 Tablet(s) PO daily 11/201412/11/2014 Inactive prednisone 20 mg tablet RxNorm: 215882 1 Tablet(s) PO BID 12/1212/11/2014 Inactive Zithromax Z-Tobin 250 mg tablet RxNorm: 510715 1 Tablet(s) PO daily 12/10/2014 12/14/2014 Inactive Zpack as directed Luvox CR 100 mg capsule,extended release RxNorm: 555271 1 Capsule(s) PO daily 06/24/2014 07/30/2015 Inactive TAKE 1 CAPSULE BY MOUTH DAILY;Patient requests 90 day supply Keflex 500 mg capsule RxNorm: 780073 1 Capsule(s) PO TID 201312/01/2013 Inactive Flonase 50 mcg/actuation nasal spray,suspension RxNorm: 966857 2 [place] NASAL daily SPRAY 2 SPRAYS IN EACH NOSTRIL DAILY 11/04/2013 05/02/2014 Inactive Flonase 50 mcg/actuation nasal spray,suspension RxNorm: 428774 [place] NASAL SPRAY 2 SPRAYS IN EACH NOSTRIL DAILY 11/04/2013 11/03/2013 Inactive Flonase 50 mcg/actuation nasal spray,suspension RxNorm: 803735 2 [place] NASAL daily 07/01/2013 07/07/2013 Inactive Luvox 50 mg tablet RxNorm: 721621 1 Tablet(s) PO BID 50mg bid x 1week, then 50mg in am 25mg at hs x 1wk then 25mg bid, x 1 week then 25mg daily x 1wk then stop 07/18/2012 08/16/2012 Inactive fluticasone 50 mcg/actuation Nasal [place], Susp RxNorm: 5484627 2 [place] NASAL BID 03/21/2012 04/14/2013 Inactive Kenalog 40 mg/mL Susp for Injection RxNorm: 3691152 1 Milliliter(s) Inj 11/28/2011 11/28/2011 Inactive Ativan 0.5 mg Tab RxNorm: 158270 1 Tablet(s) PO TID PRN No Stop Date Active q am and q pm and prn anxiety attack Luvox CR 100 mg 24 hr Cap RxNorm: 363016 Capsule(s) PO 201106/23/2014 Inactive TAKE 1 CAPSULE BY MOUTH DAILY;Patient requests 90 day supply Luvox CR 100 mg 24 hr Cap RxNorm: 367988 1 Capsule(s) PO daily 08/15/2011 08/16/2011 Inactive Lexapro 10 mg Tab RxNorm: 876483 1 Tablet(s) PO daily 201007/15/2011 Inactive prednisone 5 mg Tabs in a Dose Pack RxNorm: 840539 Tablet(s) PO 03/03/2011 07/15/2011 Inactive triamcinolone acetonide (PF) 40 mg/mL Intraocular Susp RxNorm: 7111133 1 Milliliter(s) IM 03/01/2011 07/15/2011 Inactive + Iron oral RxNorm: oral No Start Date Active nystatin 100,000 unit/mL oral suspension RxNorm: 847796 Unit(s) PO No Start Date 12/17/2014 Inactive Biotene oral RxNorm: oral No Start Date 02/2016 Inactive prednisone 5 mg Tabs in a Dose Pack RxNorm: 784419 Tablet(s) PO No Start Date 03/02/2011 Inactive Zithromax Z-Tobin 250 mg tablet RxNorm: 250135 Tablet(s) PO No Start Date 11/03/2013 Inactive fluticasone 50 mcg/actuation Nasal [place], Susp RxNorm: 2060049 2 [place] NASAL BID No Start Date 03/20/2012 Inactive Celexa 20 mg Tab RxNorm: 925522 1 Tablet(s) PO daily No Start Date 07/18/2012 Inactive Abilify 2 mg Tab RxNorm: 453393 1 Tablet(s) PO daily No Start Date 07/18/2012 Inactive Deplin Oral RxNorm: Oral No Start Date 03/2013 Inactive Lexapro 10 mg Tab RxNorm: 280159 Tablet(s) PO daily No Start Date 05/17/2011 Inactive prednisone 10 mg Tab RxNorm: 813410 Tablet(s) PO UD prednisone 10 mg - 4 x 2 days , then 3 x2 days, then 2x days, then 1 x 2 days, then stop No Start Date 07/18/2012 Inactive promethazine 25 mg tablet RxNorm: 489187 1 Tablet(s) PO Q6 PRN No Start Date 12/16/2015 Inactive Ativan 0.5 mg Tab RxNorm: 040978 1 Tablet(s) PO TID PRN No Start Date 09/06/2011 Inactive q am and q pm and prn anxiety attack Medication Administered Medication Codes Instructions Start Date Status Kenalog 40 mg/mL Susp for Injection RxNorm: 5451672 1Milliliter 11/28/2011 No longer Active Immunizations Vaccine Codes Date Status Influenza CVX: 141 04/20/2017 completed Assessments Condition Codes Effective Dates Generalized anxiety disorder ICD-10: F41.1 ICD-9: 300.00 08/22/2018 Encounter for general adult medical examination with abnormal findings ICD-10: Z00.01 ICD-9: V70.0 08/22/2018 Mastitis without abscess ICD-10: N61.0 ICD-9: 611.0 02/21/2018 Superficial foreign body of right thumb, initial encounter ICD-10: S60.351A ICD-9: 915.6 06/14/2017 Generalized anxiety disorder ICD-10: F41.1 ICD-9: 300.02 06/14/2017 Major depressive disorder, recurrent, mild ICD-10: F33.0 ICD-9: 296.31 06/14/2017 Encounter for general adult medical examination without abnormal findings ICD-10: Z00.00 ICD-9: V70.0 05/03/2017 Encounter for gynecological examination (general) (routine) without abnormal findings ICD-10: Z01.419 ICD-9: V72.31 12/17/2015 STREP SORE THROAT ICD-9: 034.0 2014 Routine medical exam ICD-9: V70.0 2014 OBSESSIVE, COMPULSIVE DISEASE ICD-9: 300.3 11/17/2014 MARGE (generalized anxiety disorder) ICD-9: 300.02 11/17/2014 Mastitis ICD-9: 611.0 11/25/2013 ACUTE URI ICD-9: 465.9 07/01/2013 COUGH ICD-9: 786.2 07/01/2013 ANXIETY STATE ICD-9: 300.00 07/18/2012 DERMATITIS DUE TO PLANT ICD-9: 692.6 Pruritic condition ICD-9: 698.9 2011 Contact with potentially hazardous body fluids ICD-9: V15.85 08/15/2011 Reason For Visit Reason For Visit Effective Dates Notes depression 08/22/2018 breast complaint 02/21/2018 depression 06/14/2017 well woman exam (18-39 years) 05/03/2017 well woman exam (18-39 years) 12/17/2015 sore throat 12/10/2014 anxiety 11/17/2014 skin lesion 11/25/2013 sinus congestion 07/01/2013 anxiety 07/18/2012 rash 11/28/2011 poison den - pt has taken oral prednisone, but still has poison den anxiety 08/15/2011 Pt states that she is in therapy with Dr. Serrano but would like to discuss med changes anxiety 05/18/2011 has been taking deplin , but it isn't helping. Pt states that her anxiety comes and goes throughout the day, but she has noticed its worse when she's driving - she stated she hasn' t had any auto accidents. pt says she can feel her heart race and chest tightness rash 03/01/2011 Results Observation Observation Code Item Item Code Result Date Comp Metabolic Meb870 NA 140 mEq/L 05/03/2017 Comp Metabolic Xmp421 K 4.1 mEq/L 05/03/2017 Comp Metabolic Ant111 CL 102 mEq/L 05/03/2017 Comp Metabolic Rst967 CO2 29.0 mEq/L 05/03/2017 Comp Metabolic Wol550 ANION GAP 13 05/03/2017 Comp Metabolic Kyl648 GLUCOSE 69 mg/dL 05/03/2017 Comp Metabolic Wgj511 Creat 0.9 mg/dL 05/03/2017 Comp Metabolic Jmq692 eGFR 81 ml/min/1.73m2 05/03/2017 Comp Metabolic Cnc282 BUN 9 mg/dL 05/03/2017 Comp Metabolic Ufw501 B/C Ratio 10.5 Ratio 05/03/2017 Comp Metabolic Bqe502 CALCIUM 9.7 mg/dL 05/03/2017 Comp Metabolic Nfh907 ALK PHOS 91 U/L 05/03/2017 Comp Metabolic Sgi074 AST(SGOT) 16 U/L 05/03/2017 Comp Metabolic Igb439 ALT(SGPT) 16 U/L 05/03/2017 Comp Metabolic Tjx620 BILI T 0.5 mg/dL 05/03/2017 Comp Metabolic Ppg399 ALBUMIN 4.6 g/dL 05/03/2017 Comp Metabolic Ihm781 TPRO 7.1 g/dL 05/03/2017 Comp Metabolic Xpv444 GLOB 2.5 g/dL 05/03/2017 Comp Metabolic Xis044 A/G Ratio 1.8 Ratio 05/03/2017 Comp Metabolic Ngt833 Osmo 276 mOsmo 05/03/2017 Magnesium Ord90 Mag 1.9 mg/dL 05/03/2017 Cbc With Differential Ord2 WBC 5.93 K/ul 05/03/2017 Cbc With Differential Ord2 RBC 4.81 M/ul 05/03/2017 Cbc With Differential Ord2 HGB 14.4 g/dl 05/03/2017 Cbc With Differential Ord2 HCT 42.1 % 05/03/2017 Cbc With Differential Ord2 Neut% 62.3 % 05/03/2017 Cbc With Differential Ord2 MCV 87.5 fl 05/03/2017 Cbc With Differential Ord2 Lymph% 28.8 % 05/03/2017 Cbc With Differential Ord2 MCH 29.9 pg 05/03/2017 Cbc With Differential Ord2 [place]% 6.7 % 05/03/2017 Cbc With Differential Ord2 MCHC 34.2 pg 05/03/2017 Cbc With Differential Ord2 Eos% 2.0 % 05/03/2017 Cbc With Differential Ord2 PLT 263 K/ul 05/03/2017 Cbc With Differential Ord2 Baso% 0.2 % 05/03/2017 Cbc With Differential Ord2 Neut ABS# 3.69 K/ul 05/03/2017 Cbc With Differential Ord2 RDW 13.1 % 05/03/2017 Cbc With Differential Ord2 Lymph ABS# 1.71 K/ul 05/03/2017 Cbc With Differential Ord2 [place] ABS# 0.4 K/ul 05/03/2017 Cbc With Differential Ord2 Eos ABS# 0.1 K/ul 05/03/2017 Cbc With Differential Ord2 Baso ABS# 0.0 K/ul 05/03/2017 Review of Systems System Result Effective Dates Constitutional No recent illness 2018 Constitutional No chills 08/22/2018 Constitutional No diaphoresis 08/22/2018 Constitutional No fever 08/22/2018 Eyes No eye erythema 08/22/2018 Ears/Nose/Throat/Neck No nasal allergies 08/22/2018 Ears/Nose/Throat/Neck No nasal discharge 08/22/2018 Cardiovascular No chest pain/pressure Cardiovascular No dyspnea 08/22/2018 Respiratory No chest congestion 2018 Respiratory No cough 08/22/2018 Gastrointestinal No abdominal pain 2018 Gastrointestinal No constipation 2018 Gastrointestinal No diarrhea 08/22/2018 Gastrointestinal No hematochezia 2018 Gastrointestinal No melena 08/22/2018 Gastrointestinal No nausea 08/22/2018 Gastrointestinal No vomiting 08/22/2018 Musculoskeletal No joint complaint 2018 Dermatologic No rash 08/22/2018 Neurologic No alteration of consciousness 08/22/2018 Neurologic No mental status change 2018 Constitutional recent illness 02/21/2018 Constitutional No chills 02/21/2018 Constitutional No diaphoresis 02/21/2018 Constitutional No fever 02/21/2018 Eyes No eye erythema 02/21/2018 Ears/Nose/Throat/Neck No nasal discharge 02/21/2018 Cardiovascular No chest pain/pressure Respiratory No cough 02/21/2018 Gastrointestinal No abdominal pain 2017 Genitourinary/Nephrology breast complaint 02/21/2018 Musculoskeletal No joint complaint 2017 Dermatologic erythema 02/21/2018 Neurologic No alteration of consciousness 02/21/2018 Neurologic No mental status change 2017 Constitutional No recent illness 2016 Constitutional No night sweats 2016 Constitutional No chills 06/14/2017 Constitutional No diaphoresis 06/14/2017 Constitutional No fatigue 06/14/2017 Constitutional No fever 06/14/2017 Constitutional No insomnia 06/14/2017 Constitutional No malaise 06/14/2017 Ears/Nose/Throat/Neck No dizziness 2016 Ears/Nose/Throat/Neck No dysphagia 2016 Ears/Nose/Throat/Neck No headache 2016 Ears/Nose/Throat/Neck No hearing loss 12/2016 Ears/Nose/Throat/Neck No nasal allergies 06/14/2017 Cardiovascular No chest pain/pressure 12/2016 Cardiovascular No dyspnea 06/14/2017 Cardiovascular No exercise intolerance Cardiovascular No fatigue 06/14/2017 Respiratory No chest congestion 2016 Respiratory No chest tightness 2016 Respiratory No cough 06/14/2017 Gastrointestinal No abdominal pain 2016 Musculoskeletal No swelling 06/14/2017 Musculoskeletal No arthralgia(s) 2016 Musculoskeletal No muscle weakness 2016 Musculoskeletal No myalgias 06/14/2017 Neurologic No dizziness 06/14/2017 Neurologic No headache 06/14/2017 Psychiatric anxiety 06/14/2017 Psychiatric depression 06/14/2017 Dermatologic sores 06/14/2017 Constitutional No night sweats 2016 Constitutional No chills 05/03/2017 Constitutional No diaphoresis 05/03/2017 Constitutional No fatigue 05/03/2017 Constitutional No fever 05/03/2017 Constitutional No insomnia 05/03/2017 Constitutional No malaise 05/03/2017 Eyes No vision change 05/03/2017 Ears/Nose/Throat/Neck No dental pain Ears/Nose/Throat/Neck No dizziness 2016 Ears/Nose/Throat/Neck No dysphagia 2016 Ears/Nose/Throat/Neck No headache 2016 Ears/Nose/Throat/Neck No hearing loss Ears/Nose/Throat/Neck No nasal allergies 05/03/2017 Ears/Nose/Throat/Neck No sore throat Ears/Nose/Throat/Neck No postnasal drip 05/03/2017 Ears/Nose/Throat/Neck No sinus congestion 05/03/2017 Cardiovascular No chest pain/pressure Cardiovascular No dyspnea 05/03/2017 Cardiovascular No exercise intolerance Cardiovascular No fatigue 05/03/2017 Respiratory No chest congestion 2016 Respiratory No chest tightness 2016 Respiratory No cough 05/03/2017 Gastrointestinal No abdominal pain 2016 Gastrointestinal No constipation 2016 Gastrointestinal No diarrhea 05/03/2017 Genitourinary/Nephrology No dysuria 05/03 Genitourinary/Nephrology No nocturia Genitourinary/Nephrology No urinary incontinence 05/03/2017 Musculoskeletal No swelling 05/03/2017 Musculoskeletal No arthralgia(s) 2016 Musculoskeletal No muscle weakness 2016 Musculoskeletal No myalgias 05/03/2017 Dermatologic No rash 05/03/2017 Dermatologic No scar 05/03/2017 Neurologic No ataxia 05/03/2017 Neurologic No dizziness 05/03/2017 Neurologic No headache 05/03/2017 Psychiatric anxiety 05/03/2017 Constitutional No recent illness 2016 Constitutional No recent illness 2015 Constitutional No chills 12/17/2015 Constitutional No fatigue 12/17/2015 Constitutional No fever 12/17/2015 Constitutional No insomnia 12/17/2015 Constitutional No malaise 12/17/2015 Eyes No blindness 12/17/2015 Eyes No vision change 12/17/2015 Ears/Nose/Throat/Neck No dental pain 03/2016 Ears/Nose/Throat/Neck No dizziness 2015 Ears/Nose/Throat/Neck No dysphagia 2015 Ears/Nose/Throat/Neck No headache 2015 Ears/Nose/Throat/Neck No hearing loss 03/2016 Ears/Nose/Throat/Neck No nasal allergies 12/17/2015 Ears/Nose/Throat/Neck No sore throat 03/2016 Ears/Nose/Throat/Neck No postnasal drip 12/17/2015 Ears/Nose/Throat/Neck No sinus congestion 12/17/2015 Cardiovascular No chest pain/pressure 03/2016 Cardiovascular No dyspnea 12/17/2015 Cardiovascular No edema 12/17/2015 Cardiovascular No exercise intolerance Cardiovascular No fatigue 12/17/2015 Cardiovascular No near-syncope/dizziness 12/17/2015 Respiratory No chest tightness 2015 Respiratory No cough 12/17/2015 Respiratory No dyspnea 12/17/2015 Respiratory No pedal edema 12/17/2015 Gastrointestinal No abdominal pain 2015 Gastrointestinal No constipation 2015 Gastrointestinal No diarrhea 12/17/2015 Gastrointestinal No gastroesophageal reflux 12/17/2015 Gastrointestinal No nausea 12/17/2015 Gastrointestinal No vomiting 12/17/2015 Genitourinary/Nephrology No dysuria 12/16 Genitourinary/Nephrology No nocturia 03/2016 Genitourinary/Nephrology No urinary incontinence 12/17/2015 Musculoskeletal No stiffness 12/17/2015 Musculoskeletal No swelling 12/17/2015 Musculoskeletal No muscle weakness 2015 Musculoskeletal No myalgias 12/17/2015 Dermatologic No rash 12/17/2015 Dermatologic No sores 12/17/2015 Dermatologic No scar 12/17/2015 Neurologic No dizziness 12/17/2015 Neurologic No headache 12/17/2015 Neurologic No neck pain 12/17/2015 Neurologic No syncope 12/17/2015 Psychiatric No anxiety 12/17/2015 Psychiatric No depression 12/17/2015 Constitutional fever 12/10/2014 Ears/Nose/Throat/Neck headache 2014 Constitutional No chills 12/10/2014 Constitutional No night sweats 2014 Constitutional fatigue 12/10/2014 Constitutional No weight loss 12/10/2014 Constitutional No weight gain 12/10/2014 Cardiovascular No edema 12/10/2014 Cardiovascular No chest pain/pressure 09/2014 Respiratory No cough 12/10/2014 Respiratory No cigarette smoking 2014 Respiratory No chest congestion 2014 Gastrointestinal No diarrhea 12/10/2014 Gastrointestinal No constipation 2014 Gastrointestinal No abdominal pain 2014 Gastrointestinal No nausea 12/10/2014 Gastrointestinal No vomiting 12/10/2014 Genitourinary/Nephrology No hematuria 09/2014 Genitourinary/Nephrology No dysuria 12/10 Musculoskeletal No back pain 12/10/2014 Musculoskeletal No joint complaint 2014 Musculoskeletal No muscle weakness 2014 Dermatologic No rash 12/10/2014 Dermatologic No sores 12/10/2014 Constitutional No night sweats 2014 Constitutional No chills 11/17/2014 Constitutional No diaphoresis 11/17/2014 Constitutional No fatigue 11/17/2014 Constitutional No fever 11/17/2014 Constitutional No insomnia 11/17/2014 Constitutional No malaise 11/17/2014 Eyes No vision change 11/17/2014 Cardiovascular No chest pain/pressure 05/2015 Cardiovascular No dyspnea 11/17/2014 Cardiovascular No exercise intolerance Cardiovascular No fatigue 11/17/2014 Respiratory No chest congestion 2014 Respiratory No chest tightness 2014 Respiratory No cough 11/17/2014 Gastrointestinal No abdominal pain 2014 Gastrointestinal No constipation 2014 Gastrointestinal No diarrhea 11/17/2014 Musculoskeletal No swelling 11/17/2014 Musculoskeletal No arthralgia(s) 2014 Musculoskeletal No muscle weakness 2014 Musculoskeletal No myalgias 11/17/2014 Neurologic No ataxia 11/17/2014 Neurologic No dizziness 11/17/2014 Neurologic No headache 11/17/2014 Ears/Nose/Throat/Neck No dental pain 05/2015 Ears/Nose/Throat/Neck No dizziness 2014 Ears/Nose/Throat/Neck No dysphagia 2014 Ears/Nose/Throat/Neck No headache 2014 Ears/Nose/Throat/Neck No hearing loss 05/2015 Ears/Nose/Throat/Neck No nasal allergies 11/17/2014 Ears/Nose/Throat/Neck No sore throat 05/2015 Ears/Nose/Throat/Neck No postnasal drip 11/17/2014 Ears/Nose/Throat/Neck No sinus congestion 11/17/2014 Genitourinary/Nephrology No dysuria 11/17 Genitourinary/Nephrology No nocturia 05/2015 Genitourinary/Nephrology No urinary incontinence 11/17/2014 Dermatologic No rash 11/17/2014 Dermatologic No scar 11/17/2014 Psychiatric anxiety 11/17/2014 Constitutional No recent illness 2013 Constitutional No chills 11/25/2013 Constitutional No fatigue 11/25/2013 Constitutional No fever 11/25/2013 Constitutional No insomnia 11/25/2013 Constitutional No malaise 11/25/2013 Psychiatric No anxiety 11/25/2013 Psychiatric No depression 11/25/2013 Cardiovascular No edema 11/25/2013 Cardiovascular No fatigue 11/25/2013 Respiratory No cough 11/25/2013 Respiratory No chest congestion 2013 Constitutional recent illness 07/01/2013 Constitutional No anorexia 07/01/2013 Constitutional No night sweats 2012 Constitutional chills 07/01/2013 Constitutional diaphoresis 07/01/2013 Constitutional fatigue 07/01/2013 Constitutional fever 07/01/2013 Constitutional No insomnia 07/01/2013 Eyes No eye discharge 07/01/2013 Eyes No eye erythema 07/01/2013 Ears/Nose/Throat/Neck headache 2012 Ears/Nose/Throat/Neck nasal discharge Ears/Nose/Throat/Neck otalgia 07/01/2013 Ears/Nose/Throat/Neck sinus congestion Ears/Nose/Throat/Neck sore throat 2012 Cardiovascular No chest pain/pressure Respiratory No productive sputum 2012 Respiratory No chest congestion 2012 Respiratory cough 07/01/2013 Gastrointestinal No constipation 2012 Gastrointestinal No diarrhea 07/01/2013 Gastrointestinal No nausea 07/01/2013 Gastrointestinal No vomiting 07/01/2013 Genitourinary/Nephrology No dysuria 07/01 Musculoskeletal No joint complaint 2012 Dermatologic No sores 07/01/2013 Dermatologic No rash 07/01/2013 Constitutional No night sweats 2012 Constitutional No chills 07/18/2012 Constitutional No fatigue 07/18/2012 Constitutional No fever 07/18/2012 Constitutional No insomnia 07/18/2012 Constitutional No malaise 07/18/2012 Eyes No vision change 07/18/2012 Cardiovascular No chest pain/pressure 03/2013 Cardiovascular No exercise intolerance Cardiovascular No fatigue 07/18/2012 Respiratory No chest congestion 2012 Respiratory No chest tightness 2012 Respiratory No cough 07/18/2012 Gastrointestinal No abdominal pain 2012 Gastrointestinal No constipation 2012 Gastrointestinal No diarrhea 07/18/2012 Musculoskeletal No muscle weakness 2012 Musculoskeletal No myalgias 07/18/2012 Neurologic No dizziness 07/18/2012 Neurologic No headache 07/18/2012 Constitutional No diaphoresis 07/18/2012 Cardiovascular No dyspnea 07/18/2012 Musculoskeletal No swelling 07/18/2012 Musculoskeletal No arthralgia(s) 2012 Neurologic No ataxia 07/18/2012 Constitutional No recent illness 2011 Constitutional No anorexia 11/28/2011 Constitutional No night sweats 2011 Constitutional No fatigue 11/28/2011 Constitutional No diaphoresis 11/28/2011 Constitutional No chills 11/28/2011 Constitutional No fever 11/28/2011 Constitutional No insomnia 11/28/2011 Dermatologic No drainage 11/28/2011 Dermatologic No cellulitis 11/28/2011 Dermatologic rash 11/28/2011 Constitutional No night sweats 2011 Constitutional No chills 08/15/2011 Constitutional No fatigue 08/15/2011 Constitutional No fever 08/15/2011 Constitutional No insomnia 08/15/2011 Constitutional No malaise 08/15/2011 Eyes No vision change 08/15/2011 Cardiovascular No chest pain/pressure 12/2011 Cardiovascular No fatigue 08/15/2011 Cardiovascular No exercise intolerance Respiratory No chest congestion 2011 Respiratory No chest tightness 2011 Respiratory No cough 08/15/2011 Gastrointestinal No abdominal pain 2011 Gastrointestinal No constipation 2011 Gastrointestinal No diarrhea 08/15/2011 Musculoskeletal No myalgias 08/15/2011 Musculoskeletal No muscle weakness 2011 Neurologic No dizziness 08/15/2011 Neurologic No headache 08/15/2011 Constitutional No night sweats 2010 Constitutional No diaphoresis 05/18/2011 Constitutional No fatigue 05/18/2011 Constitutional No insomnia 05/18/2011 Eyes No vision change 05/18/2011 Cardiovascular No chest pain/pressure 03/2011 Cardiovascular No dyspnea 05/18/2011 Cardiovascular No fatigue 05/18/2011 Respiratory No chest congestion 2010 Respiratory No chest tightness 2010 Respiratory No cough 05/18/2011 Gastrointestinal No abdominal pain 2010 Musculoskeletal No swelling 05/18/2011 Musculoskeletal No arthralgia(s) 2010 Neurologic No ataxia 05/18/2011 Neurologic No dizziness 05/18/2011 Neurologic No headache 05/18/2011 Constitutional No fever 03/01/2011 Constitutional No chills 03/01/2011 Constitutional No malaise 03/01/2011 Dermatologic rash 03/01/2011 Physical Exam Exam Name System Name Item Name Status Result Effective Dates Notes Full Exam - General 1995 Constitutional general appearance Overall: well developed 08/22/2018 None Full Exam - General 1994 Constitutional general appearance Overall: in no acute distress 08/22/2018 None Full Exam - General 1994 Constitutional general appearance Overall: well nourished 08/22/2018 None Full Exam - General 1994 Eyes conjunctiva /eyelids Overall: conjunctiva clear 08/22/2018 None Full Exam - General 1995 Eyes conjunctiva /eyelids Overall: cornea clear 08/22/2018 None Full Exam - General 1994 Eyes conjunctiva /eyelids Overall: eyelids normal 08/22/2018 None Full Exam - General 1994 Eyes pupils and irises Overall: pupils equal, round, reactive to light and accomodation 08/22/2018 None Full Exam - General 1994 Ears/Nose/Throat otoscopic exam Overall: external auditory canals clear 08/22/2018 None Full Exam - General 1994 Ears/Nose/Throat otoscopic exam Overall: tympanic membranes clear 08/22/2018 None Full Exam - General 1994 Ears/Nose/Throat lips/teeth/gingiva Overall: benign lips 08/22/2018 None Full Exam - General 1994 Ears/Nose/Throat oral cavity/pharynx/larynx Overall: oral mucosa clear 08/22/2018 None Full Exam - General 1995 Ears/Nose/Throat oral cavity/pharynx/larynx Overall: oropharyngeal mucosa clear 08/22/2018 None Full Exam - General 1994 Respiratory auscultation Overall: breath sounds clear bilaterally 08/22/2018 None Full Exam - General 1994 Respiratory respiratory effort/rhythm Overall: no retractions 08/22/2018 None Full Exam - General 1994 Respiratory respiratory effort/rhythm Overall: normal rate 08/22/2018 None Full Exam - General 1994 Cardiovascular extremities Overall: no clubbing 08/22/2018 None Full Exam - General 1994 Cardiovascular auscultation of heart Overall: regular rate 08/22/2018 None Full Exam - General 1994 Cardiovascular auscultation of heart Overall: normal heart sounds 08/22/2018 None Full Exam - General 1994 Abdomen abdominal exam Overall: no tenderness 08/22/2018 None Full Exam - General 1994 Abdomen abdominal exam Overall: normal bowel sounds 08/22/2018 None Full Exam - General 1994 Musculoskeletal gait and station Overall: normal gait 08/22/2018 None Full Exam - General 1994 Musculoskeletal gait and station Overall: normal station 08/22/2018 None Full Exam - General 1994 Musculoskeletal head and neck Overall: head atraumatic 08/22/2018 None Full Exam - General 1994 Neurologic cranial nerves Overall: crainial nerves 2 - 12 grossly intact 08/22/2018 None Full Exam - General 1994 Psychiatric orientation/consciousness Overall: oriented to person, place and time 08/22/2018 None Full Exam - General 1994 Psychiatric mood and affect Overall: normal mood and affect 08/22/2018 None Full Exam - General 1994 Psychiatric appearance Overall: well-groomed, good eye contact 08/22/2018 None Full Exam - Dermatology Constitutional general appearance Overall: well nourished 02/21/2018 None Full Exam - Dermatology Constitutional general appearance Overall: well developed 02/21/2018 None Full Exam - Dermatology Constitutional general appearance Overall: in no acute distress 02/21/2018 None Full Exam - Dermatology Eyes conjunctiva/ eyelids Overall: clear conjunctiva bilaterally 02/21/2018 None Full Exam - Dermatology Eyes conjunctiva/ eyelids Overall: clear corneas 02/21/2018 None Full Exam - Dermatology Eyes conjunctiva/ eyelids Overall: normal eyelids 02/21/2018 None Full Exam - Dermatology Ears/Nose/Throat lips/teeth/gingiva Overall: benign lips 02/21/2018 None Full Exam - Dermatology Ears/Nose/Throat oropharynx Overall: clear oral mucosa 02/21/2018 None Full Exam - Dermatology Respiratory respiratory effort/rhythm Overall: no retractions 02/21/2018 None Full Exam - Dermatology Respiratory respiratory effort/rhythm Overall: normal rate 02/21/2018 None Full Exam - Dermatology Chest/Breast breast and axillae palpation Left lower outer quadrant: tender 02/21/2018 None Full Exam - Dermatology Chest/Breast breast and axillae palpation Left lower outer quadrant: erythematous 02/21/2018 None Full Exam - Dermatology Chest/Breast breast and axillae palpation Left axillae: no mass 02/21/2018 None Full Exam - Dermatology Chest/Breast breast and axillae palpation Left axillae: non-tender 02/21/2018 None Full Exam - Dermatology Musculoskeletal head and neck Overall: head atraumatic 02/21/2018 None Full Exam - Dermatology Musculoskeletal gait and station Overall: normal gait 02/21/2018 None Full Exam - Dermatology Musculoskeletal gait and station Overall: normal station 02/21/2018 None Full Exam - Dermatology Integument insp & palp - chest/axillae Lesion: patch 02/21/2018 None Full Exam - Dermatology Integument insp & palp - chest/axillae Location: on the left breast 02/21/2018 Outer, lower quadrant Full Exam - Dermatology Integument insp & palp - chest/axillae Color: erythematous 02/21/2018 None Full Exam - Dermatology Integument insp & palp - chest/axillae Consistency: tender 02/21/2018 None Full Exam - Dermatology Integument insp & palp - chest/axillae Consistency: warm 02/21/2018 None Full Exam - Dermatology Psychiatric orientation Overall: oriented to person, place and time 02/21/2018 None Full Exam - Dermatology Psychiatric mood and affect Overall: normal mood and affect 02/21/2018 None Full Exam - General 1994 Constitutional general appearance Development: well developed 06/14/2017 None Full Exam - General 1994 Constitutional general appearance Development: appears stated age 1206/14/2017 None Full Exam - General 1994 Constitutional general appearance Overall: well developed 06/14/2017 None Full Exam - General 1994 Constitutional general appearance Overall: in no acute distress 06/14/2017 None Full Exam - General 1994 Constitutional general appearance Overall: well nourished 06/14/2017 None Full Exam - General 1994 Constitutional general appearance Hygiene/Attention to Grooming: good hygiene 06/14/2017 None Full Exam - General 1994 Eyes conjunctiva /eyelids Overall: conjunctiva clear 06/14/2017 None Full Exam - General 1994 Eyes conjunctiva /eyelids Overall: cornea clear 06/14/2017 None Full Exam - General 1994 Eyes conjunctiva /eyelids Overall: eyelids normal 06/14/2017 None Full Exam - General 1994 Eyes pupils and irises Overall: pupils equal, round, reactive to light and accomodation 06/14/2017 None Full Exam - General 1994 Ears/Nose/Throat oral cavity/pharynx/larynx Overall: oral mucosa clear 06/14/2017 None Full Exam - General 1994 Ears/Nose/Throat oral cavity/pharynx/larynx Overall: oropharyngeal mucosa clear 06/14/2017 None Full Exam - General 1994 Ears/Nose/Throat oral cavity/pharynx/larynx Overall: hypopharynx benign 06/14/2017 None Full Exam - General 1994 Ears/Nose/Throat oral cavity/pharynx/larynx Overall: no masses 06/14/2017 None Full Exam - General 1994 Respiratory auscultation Overall: breath sounds clear bilaterally 06/14/2017 None Full Exam - General 1994 Respiratory respiratory effort/rhythm Overall: no retractions 06/14/2017 None Full Exam - General 1994 Respiratory respiratory effort/rhythm Overall: normal rate 06/14/2017 None Full Exam - General 1994 Cardiovascular extremities Overall: no clubbing 06/14/2017 None Full Exam - General 1994 Cardiovascular auscultation of heart Overall: regular rate 06/14/2017 None Full Exam - General 1994 Cardiovascular auscultation of heart Overall: normal heart sounds 06/14/2017 None Full Exam - General 1994 Cardiovascular auscultation of heart Overall: no murmurs 06/14/2017 None Full Exam - General 1994 Musculoskeletal head and neck Overall: head atraumatic 06/14/2017 None Full Exam - General 1994 Musculoskeletal head and neck Overall: cervical spine benign 06/14/2017 None Full Exam - General 1994 Neurologic gait Overall: no ataxia, no unsteadiness 06/14/2017 None Full Exam - General 1994 Neurologic cranial nerves Overall: crainial nerves 2 - 12 grossly intact 06/14/2017 None Full Exam - General 1994 Psychiatric orientation/consciousness Overall: oriented to person, place and time 06/14/2017 None Full Exam - General 1994 Psychiatric orientation/consciousness Level of consciousness: alert 06/14/2017 None Full Exam - General 1994 Psychiatric behavior/psychomotor activity Overall: no tics, normal psychomotor activity 06/14/2017 None Full Exam - General 1994 Psychiatric mood and affect Overall: normal mood and affect 06/14/2017 None Full Exam - General 1994 Psychiatric mood and affect Mood: happy 06/14/2017 None Full Exam - General 1994 Psychiatric mood and affect Mood: anxious 06/14/2017 None Full Exam - General 1994 Psychiatric mood and affect Affect: mood congruent 06/14/2017 tearful Full Exam - General 1994 Psychiatric mood and affect Appropriateness: appropriate emotional responses 06/14/2017 None Full Exam - General 1994 Psychiatric appearance Overall: well-groomed, good eye contact 06/14/2017 None Full Exam - General 1994 Integument inspection of skin Location: right hand 06/14/2017 splinter in tip of thumb - removed with forceps Full Exam - General 1994 Constitutional general appearance Development: well developed 05/03/2017 None Full Exam - General 1994 Constitutional general appearance Development: appears stated age 1005/03/2017 None Full Exam - General 1994 Constitutional general appearance Overall: well developed 05/03/2017 None Full Exam - General 1994 Constitutional general appearance Overall: in no acute distress 05/03/2017 None Full Exam - General 1994 Constitutional general appearance Overall: well nourished 05/03/2017 None Full Exam - General 1994 Constitutional general appearance Hygiene/Attention to Grooming: good hygiene 05/03/2017 None Full Exam - General 1994 Eyes conjunctiva /eyelids Overall: conjunctiva clear 05/03/2017 None Full Exam - General 1994 Eyes conjunctiva /eyelids Overall: cornea clear 05/03/2017 None Full Exam - General 1994 Eyes conjunctiva /eyelids Overall: eyelids normal 05/03/2017 None Full Exam - General 1994 Eyes pupils and irises Overall: pupils equal, round, reactive to light and accomodation 05/03/2017 None Full Exam - General 1994 Ears/Nose/Throat otoscopic exam Overall: external auditory canals clear 05/03/2017 None Full Exam - General 1994 Ears/Nose/Throat otoscopic exam Overall: tympanic membranes clear 05/03/2017 None Full Exam - General 1994 Ears/Nose/Throat lips/teeth/gingiva Overall: benign lips 05/03/2017 None Full Exam - General 1994 Ears/Nose/Throat lips/teeth/gingiva Overall: normal dentition 05/03/2017 None Full Exam - General 1994 Ears/Nose/Throat oral cavity/pharynx/larynx Overall: oral mucosa clear 05/03/2017 None Full Exam - General 1994 Ears/Nose/Throat oral cavity/pharynx/larynx Overall: oropharyngeal mucosa clear 05/03/2017 None Full Exam - General 1994 Ears/Nose/Throat oral cavity/pharynx/larynx Overall: hypopharynx benign 05/03/2017 None Full Exam - General 1994 Ears/Nose/Throat oral cavity/pharynx/larynx Overall: no masses 05/03/2017 None Full Exam - General 1994 Respiratory auscultation Overall: breath sounds clear bilaterally 05/03/2017 None Full Exam - General 1994 Respiratory respiratory effort/rhythm Overall: no retractions 05/03/2017 None Full Exam - General 1994 Respiratory respiratory effort/rhythm Overall: normal rate 05/03/2017 None Full Exam - General 1994 Cardiovascular extremities Overall: no clubbing 05/03/2017 None Full Exam - General 1994 Cardiovascular auscultation of heart Overall: regular rate 05/03/2017 None Full Exam - General 1994 Cardiovascular auscultation of heart Overall: normal heart sounds 05/03/2017 None Full Exam - General 1994 Cardiovascular auscultation of heart Overall: no murmurs 05/03/2017 None Full Exam - General 1994 Abdomen abdominal exam Overall: no tenderness 05/03/2017 None Full Exam - General 1994 Abdomen abdominal exam Overall: normal bowel sounds 05/03/2017 None Full Exam - General 1994 Lymphatic neck nodes Overall: anterior cervical chain benign 05/03/2017 None Full Exam - General 1994 Lymphatic neck nodes Overall: posterior cervical chain benign 05/03/2017 None Full Exam - General 1994 Musculoskeletal gait and station Overall: normal gait 05/03/2017 None Full Exam - General 1994 Musculoskeletal gait and station Overall: normal station 05/03/2017 None Full Exam - General 1994 Musculoskeletal head and neck Overall: head atraumatic 05/03/2017 None Full Exam - General 1994 Musculoskeletal head and neck Overall: cervical spine benign 05/03/2017 None Full Exam - General 1994 Integument inspection of skin Overall: few scattered moles, no gross abnormalities 05/03/2017 None Full Exam - General 1994 Neurologic deep tendon reflexes Overall: deep tendon reflexes intact 05/03/2017 None Full Exam - General 1994 Neurologic gait Overall: no ataxia, no unsteadiness 05/03/2017 None Full Exam - General 1994 Neurologic cranial nerves Overall: crainial nerves 2 - 12 grossly intact 05/03/2017 None Full Exam - General 1994 Psychiatric orientation/consciousness Overall: oriented to person, place and time 05/03/2017 None Full Exam - General 1994 Psychiatric orientation/consciousness Level of consciousness: alert 05/03/2017 None Full Exam - General 1994 Psychiatric behavior/psychomotor activity Overall: no tics, normal psychomotor activity 05/03/2017 None Full Exam - General 1994 Psychiatric mood and affect Overall: normal mood and affect 05/03/2017 None Full Exam - General 1994 Psychiatric mood and affect Mood: happy 05/03/2017 None Full Exam - General 1994 Psychiatric mood and affect Mood: anxious 05/03/2017 None Full Exam - General 1994 Psychiatric mood and affect Affect: mood congruent 05/03/2017 tearful Full Exam - General 1994 Psychiatric mood and affect Appropriateness: appropriate emotional responses 05/03/2017 None Full Exam - General 1994 Psychiatric appearance Overall: well-groomed, good eye contact 05/03/2017 None Full Exam - General 1994 Constitutional general appearance Development: well developed 12/17/2015 None Full Exam - General 1994 Constitutional general appearance Development: appears stated age 0612/17/2015 None Full Exam - General 1994 Constitutional general appearance Hygiene/Attention to Grooming: good hygiene 12/17/2015 None Full Exam - General 1994 Eyes conjunctiva /eyelids Overall: conjunctiva clear 12/17/2015 None Full Exam - General 1994 Eyes conjunctiva /eyelids Overall: cornea clear 12/17/2015 None Full Exam - General 1994 Eyes conjunctiva /eyelids Overall: eyelids normal 12/17/2015 None Full Exam - General 1994 Eyes pupils and irises Overall: pupils equal, round, reactive to light and accomodation 12/17/2015 None Full Exam - General 1994 Ears/Nose/Throat otoscopic exam Overall: external auditory canals clear 12/17/2015 None Full Exam - General 1994 Ears/Nose/Throat otoscopic exam Overall: tympanic membranes clear 12/17/2015 None Full Exam - General 1994 Ears/Nose/Throat lips/teeth/gingiva Overall: benign lips 12/17/2015 None Full Exam - General 1994 Ears/Nose/Throat lips/teeth/gingiva Overall: normal dentition 12/17/2015 None Full Exam - General 1994 Ears/Nose/Throat oral cavity/pharynx/larynx Overall: oral mucosa clear 12/17/2015 None Full Exam - General 1994 Ears/Nose/Throat oral cavity/pharynx/larynx Overall: oropharyngeal mucosa clear 12/17/2015 None Full Exam - General 1994 Ears/Nose/Throat oral cavity/pharynx/larynx Overall: hypopharynx benign 12/17/2015 None Full Exam - General 1994 Ears/Nose/Throat oral cavity/pharynx/larynx Overall: no masses 12/17/2015 None Full Exam - General 1994 Respiratory auscultation Overall: breath sounds clear bilaterally 12/17/2015 None Full Exam - General 1994 Respiratory respiratory effort/rhythm Overall: no retractions 12/17/2015 None Full Exam - General 1994 Respiratory respiratory effort/rhythm Overall: normal rate 12/17/2015 None Full Exam - General 1994 Cardiovascular extremities Overall: no clubbing 12/17/2015 None Full Exam - General 1994 Cardiovascular auscultation of heart Overall: regular rate 12/17/2015 None Full Exam - General 1994 Cardiovascular auscultation of heart Overall: normal heart sounds 12/17/2015 None Full Exam - General 1994 Abdomen abdominal exam Overall: no tenderness 12/17/2015 None Full Exam - General 1994 Abdomen abdominal exam Overall: normal bowel sounds 12/17/2015 None Full Exam - General 1994 Lymphatic neck nodes Overall: anterior cervical chain benign 12/17/2015 None Full Exam - General 1994 Lymphatic neck nodes Overall: posterior cervical chain benign 12/17/2015 None Full Exam - General 1994 Musculoskeletal spine, ribs and pelvis Overall: spine benign 12/17/2015 None Full Exam - General 1994 Musculoskeletal spine, ribs and pelvis Overall: sacroiliac joint benign 12/17/2015 None Full Exam - General 1994 Musculoskeletal spine, ribs and pelvis Overall: good posture 12/17/2015 None Full Exam - General 1994 Musculoskeletal head and neck Overall: head atraumatic 12/17/2015 None Full Exam - General 1994 Musculoskeletal head and neck Overall: cervical spine benign 12/17/2015 None Full Exam - General 1994 Integument inspection of skin Overall: few scattered moles, no gross abnormalities 12/17/2015 None Full Exam - General 1994 Neurologic deep tendon reflexes Overall: deep tendon reflexes intact 12/17/2015 None Full Exam - General 1994 Neurologic cranial nerves Overall: crainial nerves 2 - 12 grossly intact 12/17/2015 None Full Exam - General 1994 Psychiatric orientation/consciousness Overall: oriented to person, place and time 12/17/2015 None Full Exam - General 1994 Psychiatric mood and affect Overall: normal mood and affect 12/17/2015 None Full Exam - ENT Neurologic mood and affect Overall: normal mood 12/10/2014 None Full Exam - ENT Neurologic mood and affect Overall: normal affect 12/10/2014 None Full Exam - ENT Neurologic orientation Overall: oriented to person, place and time 12/10/2014 None Full Exam - ENT Integument inspection of skin Overall: no rash, lesions 12/10/2014 None Full Exam - ENT Musculoskeletal head and neck Overall: head atraumatic 12/10/2014 None Full Exam - ENT Musculoskeletal head and neck Overall: cervical spine benign 12/10/2014 None Full Exam - ENT Musculoskeletal digits and nails Overall: no clubbing 12/10/2014 None Full Exam - ENT Musculoskeletal digits and nails Overall: digits benign 12/10/2014 None Full Exam - ENT Musculoskeletal gait and station Overall: normal gait 12/10/2014 None Full Exam - ENT Musculoskeletal gait and station Overall: normal station 12/10/2014 None Full Exam - ENT Lymphatic palpation of lymph nodes Overall: shotty lymphadenopathy 12/10/2014 None Full Exam - ENT Abdomen abdominal exam Overall: no tenderness 12/10/2014 None Full Exam - ENT Abdomen abdominal exam Overall: normal bowel sounds 12/10/2014 None Full Exam - ENT Cardiovascular auscultation of heart Overall: regular rate 12/10/2014 None Full Exam - ENT Cardiovascular auscultation of heart Overall: normal heart sounds 12/10/2014 None Full Exam - ENT Respiratory inspection Overall: no retractions 12/10/2014 None Full Exam - ENT Respiratory inspection Overall: normal rate 09/2014 None Full Exam - ENT Respiratory auscultation Overall: breath sounds clear bilaterally 12/10/2014 None Full Exam - ENT Neck inspection of neck Overall: normal size None Full Exam - ENT Neck inspection of neck Overall: normal skin None Full Exam - ENT Face and Head palpation Overall: no sinus tenderness 12/10/2014 None Full Exam - ENT Face and Head palpation Overall: no induration, no tenderness 12/10/2014 None Full Exam - ENT Face and Head inspection of face/head Overall: no scars, lesions, masses 12/10/2014 None Full Exam - ENT Ears/Nose/Throat oropharynx Oropharynx: erythema 12/10/2014 None Full Exam - ENT Ears/Nose/Throat oropharynx Oropharynx: exudate 12/10/2014 None Full Exam - ENT Ears/Nose/Throat oropharynx Oral mucosa: moist 12/10/2014 None Full Exam - ENT Ears/Nose/Throat lips/ teeth/gingiva Overall: benign lips 12/10/2014 None Full Exam - ENT Ears/Nose/Throat lips/ teeth/gingiva Overall: normal dentition 12/10/2014 None Full Exam - ENT Ears/Nose/Throat lips/ teeth/gingiva Overall: benign gingiva 12/10/2014 None Full Exam - ENT Ears/Nose/Throat lips/ teeth/gingiva Overall: no masses 12/10/2014 None Full Exam - ENT Constitutional general appearance Overall: well nourished 12/10/2014 None Full Exam - ENT Constitutional general appearance Overall: well developed 12/10/2014 None Full Exam - ENT Constitutional general appearance Overall: in no acute distress 12/10/2014 None Full Exam - ENT Constitutional general appearance Hygiene/Attention to Grooming: good hygiene 12/10/2014 None Full Exam - ENT Constitutional general appearance Hygiene/Attention to Grooming: normal grooming 12/10/2014 None Full Exam - ENT Constitutional general appearance Stature/Body Habitus: normal body habitus 12/10/2014 None Full Exam - General 1994 Constitutional general appearance Overall: well developed 11/17/2014 None Full Exam - General 1994 Constitutional general appearance Overall: in no acute distress 11/17/2014 None Full Exam - General 1994 Constitutional general appearance Overall: well nourished 11/17/2014 None Full Exam - General 1994 Respiratory auscultation Overall: breath sounds clear bilaterally 11/17/2014 None Full Exam - General 1994 Respiratory respiratory effort/rhythm Overall: no retractions 11/17/2014 None Full Exam - General 1994 Respiratory respiratory effort/rhythm Overall: normal rate 11/17/2014 None Full Exam - General 1994 Cardiovascular auscultation of heart Overall: regular rate 11/17/2014 None Full Exam - General 1994 Cardiovascular auscultation of heart Overall: normal heart sounds 11/17/2014 None Full Exam - General 1994 Cardiovascular auscultation of heart Overall: no murmurs 11/17/2014 None Full Exam - General 1994 Neurologic gait Overall: no ataxia, no unsteadiness 11/17/2014 None Full Exam - General 1994 Psychiatric orientation/consciousness Overall: oriented to person, place and time 11/17/2014 None Full Exam - General 1994 Psychiatric mood and affect Overall: normal mood and affect 11/17/2014 None Full Exam - General 1994 Psychiatric mood and affect Mood: happy 11/17/2014 None Full Exam - General 1994 Eyes pupils and irises Overall: pupils equal, round, reactive to light and accomodation 11/17/2014 None Full Exam - General 1994 Psychiatric orientation/consciousness Level of consciousness: alert 11/17/2014 None Full Exam - General 1994 Psychiatric behavior/psychomotor activity Overall: no tics, normal psychomotor activity 11/17/2014 None Full Exam - General 1994 Psychiatric mood and affect Mood: anxious 11/17/2014 None Full Exam - General 1994 Psychiatric mood and affect Affect: mood congruent 11/17/2014 tearful Full Exam - General 1994 Psychiatric mood and affect Appropriateness: appropriate emotional responses 11/17/2014 None Full Exam - General 1994 Psychiatric appearance Overall: well-groomed, good eye contact 11/17/2014 None Full Exam - General 1994 Ears/Nose/Throat otoscopic exam Overall: tympanic membranes clear 11/17/2014 None Full Exam - General 1994 Ears/Nose/Throat otoscopic exam Overall: external auditory canals clear 11/17/2014 None Full Exam - General 1994 Constitutional general appearance Development: appears stated age 0511/17/2014 None Full Exam - General 1994 Constitutional general appearance Development: well developed 11/17/2014 None Full Exam - General 1994 Constitutional general appearance Hygiene/Attention to Grooming: good hygiene 11/17/2014 None Full Exam - General 1994 Eyes conjunctiva /eyelids Overall: conjunctiva clear 11/17/2014 None Full Exam - General 1994 Eyes conjunctiva /eyelids Overall: cornea clear 11/17/2014 None Full Exam - General 1994 Eyes conjunctiva /eyelids Overall: eyelids normal 11/17/2014 None Full Exam - General 1994 Ears/Nose/Throat lips/teeth/gingiva Overall: benign lips 11/17/2014 None Full Exam - General 1994 Ears/Nose/Throat lips/teeth/gingiva Overall: normal dentition 11/17/2014 None Full Exam - General 1994 Ears/Nose/Throat oral cavity/pharynx/larynx Overall: hypopharynx benign 11/17/2014 None Full Exam - General 1994 Ears/Nose/Throat oral cavity/pharynx/larynx Overall: no masses 11/17/2014 None Full Exam - General 1994 Ears/Nose/Throat oral cavity/pharynx/larynx Overall: oral mucosa clear 11/17/2014 None Full Exam - General 1994 Ears/Nose/Throat oral cavity/pharynx/larynx Overall: oropharyngeal mucosa clear 11/17/2014 None Full Exam - General 1994 Cardiovascular extremities Overall: no clubbing 11/17/2014 None Full Exam - General 1994 Abdomen abdominal exam Overall: no tenderness 11/17/2014 None Full Exam - General 1994 Abdomen abdominal exam Overall: normal bowel sounds 11/17/2014 None Full Exam - General 1994 Integument inspection of skin Overall: few scattered moles, no gross abnormalities 11/17/2014 None Full Exam - General 1994 Neurologic deep tendon reflexes Overall: deep tendon reflexes intact 11/17/2014 None Full Exam - General 1994 Neurologic cranial nerves Overall: crainial nerves 2 - 12 grossly intact 11/17/2014 None Full Exam - General 1994 Lymphatic neck nodes Overall: anterior cervical chain benign 11/17/2014 None Full Exam - General 1994 Lymphatic neck nodes Overall: posterior cervical chain benign 11/17/2014 None Full Exam - General 1994 Musculoskeletal head and neck Overall: cervical spine benign 11/17/2014 None Full Exam - General 1994 Musculoskeletal head and neck Overall: head atraumatic 11/17/2014 None Full Exam - General 1994 Musculoskeletal gait and station Overall: normal station 11/17/2014 None Full Exam - General 1994 Musculoskeletal gait and station Overall: normal gait 11/17/2014 None Full Exam - General 1994 Constitutional general appearance Overall: well nourished 11/25/2013 None Full Exam - General 1994 Constitutional general appearance Overall: well developed 11/25/2013 None Full Exam - General 1994 Constitutional general appearance Overall: in no acute distress 11/25/2013 None Full Exam - General 1994 Psychiatric orientation/consciousness Overall: oriented to person, place and time 11/25/2013 None Full Exam - General 1994 Integument inspection of skin Location: chest 11/25/2013 left breast - irritated on nipple at the 2-3 oclock position - slightly bloody dried on tip of nipple, and tender to touch Full Exam - General 1994 Respiratory respiratory effort/rhythm Overall: normal rate 11/25/2013 None Full Exam - General 1994 Respiratory respiratory effort/rhythm Overall: no retractions 11/25/2013 None Full Exam - General 1994 Respiratory auscultation Overall: breath sounds clear bilaterally 11/25/2013 None Full Exam - General 1994 Cardiovascular auscultation of heart Overall: regular rate 11/25/2013 None Full Exam - General 1994 Cardiovascular auscultation of heart Overall: normal heart sounds 11/25/2013 None Full Exam - General 1994 Cardiovascular auscultation of heart Overall: no murmurs 11/25/2013 None Full Exam - ENT Neurologic orientation Overall: oriented to person, place and time 07/01/2013 None Full Exam - ENT Lymphatic palpation of lymph nodes Overall: posterior cervical chain benign 07/01/2013 None Full Exam - ENT Lymphatic palpation of lymph nodes Overall: anterior cervical chain benign 07/01/2013 None Full Exam - ENT Cardiovascular auscultation of heart Overall: regular rate 07/01/2013 None Full Exam - ENT Cardiovascular auscultation of heart Overall: normal heart sounds 07/01/2013 None Full Exam - ENT Cardiovascular auscultation of heart Overall: no murmurs 07/01/2013 None Full Exam - ENT Respiratory auscultation Overall: breath sounds clear bilaterally 07/01/2013 None Full Exam - ENT Face and Head palpation Overall: no sinus tenderness 07/01/2013 None Full Exam - ENT Ears/Nose/Throat otoscopic exam Overall: external auditory canals normal 07/01/2013 None Full Exam - ENT Ears/Nose/Throat otoscopic exam Overall: tympanic membranes normal 07/01/2013 None Full Exam - ENT Ears/Nose/Throat oropharynx Overall: oral mucosa clear 07/01/2013 None Full Exam - ENT Constitutional general appearance Overall: well nourished 07/01/2013 None Full Exam - ENT Constitutional general appearance Overall: well developed 07/01/2013 None Full Exam - ENT Constitutional general appearance Overall: in no acute distress 07/01/2013 None Full Exam - General 1995 Constitutional general appearance Overall: well developed 07/18/2012 None Full Exam - General 1995 Constitutional general appearance Overall: in no acute distress 07/18/2012 None Full Exam - General 1995 Constitutional general appearance Overall: well nourished 07/18/2012 None Full Exam - General 1995 Respiratory auscultation Overall: breath sounds clear bilaterally 07/18/2012 None Full Exam - General 1994 Respiratory respiratory effort/rhythm Overall: no retractions 07/18/2012 None Full Exam - General 1994 Respiratory respiratory effort/rhythm Overall: normal rate 07/18/2012 None Full Exam - General 1994 Cardiovascular auscultation of heart Overall: regular rate 07/18/2012 None Full Exam - General 1995 Cardiovascular auscultation of heart Overall: normal heart sounds 07/18/2012 None Full Exam - General 1994 Cardiovascular auscultation of heart Overall: no murmurs 07/18/2012 None Full Exam - General 1994 Neurologic gait Overall: no ataxia, no unsteadiness 07/18/2012 None Full Exam - General 1994 Psychiatric orientation/consciousness Overall: oriented to person, place and time 07/18/2012 None Full Exam - General 1994 Psychiatric mood and affect Overall: normal mood and affect 07/18/2012 None Full Exam - General 1994 Psychiatric mood and affect Mood: happy 07/18/2012 None Full Exam - General 1994 Integument inspection of skin Rash/Lesions: papule 11/28/2011 None Full Exam - General 1995 Integument inspection of skin Rash/Lesions: macule 11/28/2011 streak like linear eruption with vesicles and crusted lesionsf noted to abdomen, arms, and hands between fingers Full Exam - General 1994 Psychiatric orientation/consciousness Overall: oriented to person, place and time 11/28/2011 None Full Exam - General 1994 Constitutional general appearance Overall: well nourished 11/28/2011 None Full Exam - General 1994 Constitutional general appearance Overall: well developed 11/28/2011 None Full Exam - General 1994 Constitutional general appearance Overall: in no acute distress 11/28/2011 None Full Exam - General 1994 Respiratory auscultation Overall: breath sounds clear bilaterally 11/28/2011 None Full Exam - General 1994 Respiratory respiratory effort/rhythm Overall: normal rate 11/28/2011 None Full Exam - General 1994 Respiratory respiratory effort/rhythm Overall: no retractions 11/28/2011 None Full Exam - General 1994 Integument inspection of skin Location: right hand 11/28/2011 None Full Exam - General 1994 Integument inspection of skin Location: left hand 11/28/2011 None Full Exam - General 1994 Integument inspection of skin Location: abdomen 11/28/2011 None Full Exam - General 1994 Integument inspection of skin Location: inguinal area 11/28/2011 None Full Exam - General 1994 Integument inspection of skin Location: left arm 11/28/2011 None Full Exam - General 1994 Integument inspection of skin Location: right arm 11/28/2011 None Full Exam - General 1994 Constitutional general appearance Overall: well nourished 08/15/2011 None Full Exam - General 1994 Constitutional general appearance Overall: well developed 08/15/2011 None Full Exam - General 1994 Constitutional general appearance Overall: in no acute distress 08/15/2011 None Full Exam - General 1994 Psychiatric orientation/consciousness Overall: oriented to person, place and time 08/15/2011 None Full Exam - General 1994 Psychiatric mood and affect Mood: happy 08/15/2011 None Full Exam - General 1994 Psychiatric mood and affect Overall: normal mood and affect 08/15/2011 None Full Exam - General 1994 Neurologic gait Overall: no ataxia, no unsteadiness 08/15/2011 None Full Exam - General 1994 Respiratory auscultation Overall: breath sounds clear bilaterally 08/15/2011 None Full Exam - General 1994 Respiratory respiratory effort/rhythm Overall: normal rate 08/15/2011 None Full Exam - General 1994 Respiratory respiratory effort/rhythm Overall: no retractions 08/15/2011 None Full Exam - General 1994 Cardiovascular auscultation of heart Overall: regular rate 08/15/2011 None Full Exam - General 1994 Cardiovascular auscultation of heart Overall: normal heart sounds 08/15/2011 None Full Exam - General 1994 Cardiovascular auscultation of heart Overall: no murmurs 08/15/2011 None Full Exam - General 1994 Psychiatric behavior/psychomotor activity Overall: no tics, normal psychomotor activity 05/18/2011 None Full Exam - General 1994 Psychiatric mood and affect Mood: anxious 05/18/2011 None Full Exam - General 1994 Psychiatric mood and affect Affect: mood congruent 05/18/2011 tearful Full Exam - General 1994 Psychiatric mood and affect Appropriateness: appropriate emotional responses 05/18/2011 None Full Exam - General 1994 Psychiatric appearance Overall: well-groomed, good eye contact 05/18/2011 None Full Exam - General 1994 Neurologic gait Overall: no ataxia, no unsteadiness 05/18/2011 None Full Exam - General 1994 Cardiovascular auscultation of heart Overall: regular rate 05/18/2011 None Full Exam - General 1994 Cardiovascular auscultation of heart Overall: normal heart sounds 05/18/2011 None Full Exam - General 1994 Cardiovascular auscultation of heart Overall: no murmurs 05/18/2011 None Full Exam - General 1994 Constitutional general appearance Overall: well nourished 05/18/2011 None Full Exam - General 1994 Constitutional general appearance Overall: well developed 05/18/2011 None Full Exam - General 1994 Constitutional general appearance Overall: in no acute distress 05/18/2011 None Full Exam - General 1994 Eyes pupils and irises Overall: pupils equal, round, reactive to light and accomodation 05/18/2011 None Full Exam - General 1994 Respiratory respiratory effort/rhythm Overall: normal rate 05/18/2011 None Full Exam - General 1994 Psychiatric orientation/consciousness Overall: oriented to person, place and time 05/18/2011 None Full Exam - General 1994 Psychiatric orientation/consciousness Level of consciousness: alert 05/18/2011 None Full Exam - General 1994 Respiratory respiratory effort/rhythm Overall: no retractions 05/18/2011 None Full Exam - General 1994 Respiratory auscultation Overall: breath sounds clear bilaterally 05/18/2011 None Full Exam - General Constitutional general appearance Overall: well nourished 03/01/2011 None Full Exam - General Constitutional general appearance Overall: well developed 03/01/2011 None Full Exam - General Constitutional general appearance Overall: in no acute distress 03/01/2011 None Full Exam - General Cardiovascular auscultation of heart Overall: normal heart sounds 03/01/2011 None Full Exam - General Respiratory auscultation Overall: breath sounds clear bilaterally 03/01/2011 None Full Exam - General Integument inspection of skin Rash/Lesions: vesicle 03/01/2011 None Full Exam - General Integument inspection of skin Location: neck 03/01/2011 None Full Exam - General Integument inspection of skin Location: left arm 03/01/2011 None Full Exam - General Integument inspection of skin Location: left leg 03/01/2011 None Full Exam - General Integument inspection of skin description of wound vesicular 03/01/2011 None Full Exam - General Integument inspection of skin description of wound streak-like 03/01/2011 None Procedures Procedure Codes Date C RAP A SC (STREP A ASSAY W/OPTIC) CPT-4: 79492 12/10/2014 TRIAMCINOLONE ACET INJ NOS CPT-4: J3301 11/28/2011 THER/PROPH/DIAG INJ SC/IM CPT-4: 37438 11/28/2011 ROUTINE VENIPUNCTURE CPT-4: 59291 08/15/2011 TRIAMCINOLONE ACET INJ NOS CPT-4: J3301 03/01/2011 THER/PROPH/DIAG INJ SC/IM CPT-4: 07651 03/01/2011 Vital Signs Date Vital 08/22/2018 BMI: 20.8 Code: 23352-1 Height: 5'8" Weight: 137 lbs 02/21/2018 Blood Pressure 1: 104/62 Code : 8480-6 BMI: 19.9 Code : 33656-5 Heart Rate 1 : 65 bpm Height: 5'8" SpO2: 99% Temperature: 36.8 (C) / 98.2 (F) Weight: 131 lbs 06/14/2017 Blood Pressure 1: 116/80 Code : 8480-6 BMI: 21.6 Code : 61030-8 Heart Rate 1 : 61 bpm Height: 5'8" SpO2: 98% Weight: 142 lbs 05/03/2017 Blood Pressure 1: 110/80 Code : 8480-6 BMI: 22.2 Code : 30352-0 Heart Rate 1 : 79 bpm Height: 5'8" SpO2: 98% Weight: 146 lbs 12/17/2015 Blood Pressure 1: 108/78 Code : 8480-6 BMI: 22.0 Code : 27007-2 Heart Rate 1 : 66 bpm Height: 5'8" SpO2: 98% Weight: 145 lbs 12/10/2014 Temperature: 36.9 (C) / 98.5 (F) 11/17/2014 Blood Pressure 1: 110/64 Code : 8480-6 BMI: 21.4 Code : 59504-7 Heart Rate 1 : 68 bpm Height: 5'8" Weight: 141 lbs 11/25/2013 Blood Pressure 1: 102/78 Code : 8480-6 Heart Rate 1: 104 bpm Temperature: 37.6 (C) / 99.7 (F) Weight: 132 lbs 07/01/2013 Blood Pressure 1: 122/76 Code : 8480-6 BMI: 22.0 Code : 04248-5 Heart Rate 1 : 100 bpm Height: 5'8" Temperature: 36.8 (C) / 98.3 (F) Weight: 145 lbs 07/18/2012 Blood Pressure 1: 112/68 Code : 8480-6 BMI: 21.7 Code : 84534-8 Heart Rate 1 : 80 bpm Height: 5'8" Weight: 143 lbs 11/28/2011 Blood Pressure 1: 98/62 Code : 8480-6 BMI: 21.3 Code : 84679-9 Heart Rate 1 : 90 bpm Height: 5'8" Respiratory Rate: 16 bpm Weight: 140 lbs 08/15/2011 Blood Pressure 1: 108/74 Code : 8480-6 BMI: 19.8 Code : 67175-9 Heart Rate 1 : 78 bpm Height: 5'8" Respiratory Rate: 16 bpm Weight: 130 lbs 05/18/2011 Blood Pressure 1: 104/80 Code : 8480-6 BMI: 21.0 Code : 90655-3 Heart Rate 1 : 92 bpm Height: 5'8" Respiratory Rate: 12 bpm Weight: 138 lbs 03/01/2011 Blood Pressure 1: 120/72 Code : 8480-6 BMI: 21.6 Code : 08295-0 Heart Rate 1 : 68 bpm Height: 5'8" Weight: 142 lbs Functional Status No Functional Status data History of Present Illness Symptom Name Status Result Effective Date Notes Quality improving None Onset and Resolution ongoing 08/22/2018 None Onset of Symptom during adulthood 08/22/2018 None Alleviating Factors medication 08/22/2018 None Pertinent Findings anxiety 08/22/2018 None Pertinent Findings Denies hopelessness 08/22/2018 None breast complaint Location in the left upper outer quadrant 02/21/2018 None breast complaint Location in the left nipple 02/21/2018 None breast complaint Location in the left lower outer quadrant 02/21/2018 None breast complaint Quality pain 02/21/2018 None breast complaint Quality worsening 02/21/2018 None breast complaint Onset and Resolution sudden in onset 02/21/2018 None breast complaint Onset of Symptom 3 days ago 02/21/2018 None breast complaint Frequency of Episodes daily 02/21/2018 None depression Onset and Resolution ongoing 06/14/2017 None depression Alleviating Factors medication 06/14/2017 None depression Quality improving 06/14/2017 None depression Onset of Symptom during adulthood 06/14/2017 None well woman exam (18-39 years) Obstetrical History 2 full term 05/03/2017 None well woman exam (18-39 years) Control none 05/03/2017 None well woman exam (18-39 years) Lifestyle regular seatbelt use 05/03/2017 None well woman exam (18-39 years) Lifestyle abnormal sleep patterns 05/03/2017 None well woman exam (18-39 years) Lifestyle abnormal amount of stress 05/03/2017 -- Started back to work this week, Bought a house last week well woman exam (18-39 years) Nutrition and Exercise normal weight 05/03/2017 None well woman exam (18-39 years) Nutrition and Exercise no exercise 05/03/2017 None well woman exam (18-39 years) Health Guidance depression symptoms 05/03/2017 None well woman exam (18-39 years) Pap Smear last normal performed 12/17/2015 within the last year well woman exam (18-39 years) Lifestyle regular seatbelt use 12/17/2015 None well woman exam (18-39 years) Lifestyle normal sleep patterns 12/17/2015 None well woman exam (18-39 years) Lifestyle normal amount of stress 12/17/2015 None well woman exam (18-39 years) Nutrition and Exercise normal weight 12/17/2015 None well woman exam (18-39 years) Nutrition and Exercise minimal exercise 12/17/2015 None well woman exam (18-39 years) Obstetrical History 1 living children 12/17/2015 None sore throat Location diffusely 12/10/2014 None sore throat Quality aching 12/10/2014 None sore throat Quality acute 12/10/2014 None sore throat Quality sharp 12/10/2014 None anxiety Quality obsessive-compulsive 11/17/2014 None anxiety Onset and Resolution gradual in onset 11/17/2014 None anxiety Onset of Symptom 1.5 years ago 11/17/2014 None anxiety Onset of Symptom during adulthood 11/17/2014 None anxiety Limitation on Activities does not limit activities 11/17/2014 None anxiety Frequency of Episodes decreasing 11/17/2014 None anxiety Significant Family History anxiety disorder 11/17/2014 None anxiety Triggers stress 11/17/2014 None anxiety Triggers performance 11/17/2014 None anxiety Pertinent Findings Denies avoidance behavior 11/17/2014 None anxiety Pertinent Findings Denies dizziness 11/17/2014 None anxiety Pertinent Findings Denies feeling of dread 11/17/2014 None anxiety Pertinent Findings Denies lightheadedness 11/17/2014 None anxiety Pertinent Findings Denies nausea 11/17/2014 None anxiety Pertinent Findings Denies palpitations 11/17/2014 None anxiety Pertinent Findings shyness 11/17/2014 None anxiety Pertinent Findings Denies tachycardia 11/17/2014 None anxiety Pertinent Findings Denies tingling in extremities 11/17/2014 None anxiety Pertinent Findings Denies vomiting 11/17/2014 None anxiety Pertinent Findings Denies weakness 11/17/2014 None headache Location in the right occipital area 11/17/2014 None headache Location in the left occipital area 11/17/2014 None headache Quality intermittent 11/17/2014 None headache Onset of Symptom 1-3 months ago 11/17/2014 None headache Frequency of Episodes weekly 11/17/2014 2-3 headache Pertinent Findings Denies awakens from sleep 11/17/2014 None headache Pertinent Findings Denies blurred vision 11/17/2014 None headache Pertinent Findings Denies dizziness 11/17/2014 None headache Pertinent Findings Denies dyspnea 11/17/2014 None headache Pertinent Findings Denies syncope 11/17/2014 None anxiety Onset and Resolution ongoing 11/17/2014 None skin lesion Quality flat 11/25/2013 left breast skin lesion Pertinent Findings fever 11/25/2013 None skin lesion Onset and Resolution ongoing 11/25/2013 None skin lesion Severity moderate 11/25/2013 None sinus congestion Pertinent Findings cough 07/01/2013 None sinus congestion Pertinent Findings decreased energy level 07/01/2013 None sinus congestion Pertinent Findings facial pain 07/01/2013 None sinus congestion Pertinent Findings fever 07/01/2013 None sinus congestion Severity moderate 07/01/2013 None sinus congestion Onset of Symptom 3 days ago 07/01/2013 None sinus congestion Timing of Episodes all day long 07/01/2013 None sinus congestion Significant Medical Conditions allergic rhinitis 07/01/2013 None sinus congestion Triggers allergens 07/01/2013 None sinus congestion Alleviating Factors medication 07/01/2013 None sinus congestion Location on both sides 07/01/2013 None cough Location in the throat 07/01/2013 None cough Quality acute None cough Onset and Resolution ongoing 07/01/2013 None cough Onset of Symptom _ days ago 07/01/2013 None cough Limitation on Activities does not limit activities 07/01/2013 None anxiety Quality worsening 07/18/2012 None anxiety Onset and Resolution gradual in onset 07/18/2012 None anxiety Onset of Symptom during adulthood 07/18/2012 None anxiety Triggers stress 07/18/2012 None anxiety Triggers performance 07/18/2012 None anxiety Pertinent Findings Denies dizziness 07/18/2012 None anxiety Pertinent Findings Denies lightheadedness 07/18/2012 None anxiety Pertinent Findings Denies nausea 07/18/2012 None anxiety Pertinent Findings palpitations 07/18/2012 None anxiety Pertinent Findings shyness 07/18/2012 None anxiety Pertinent Findings Denies tingling in extremities 07/18/2012 None anxiety Pertinent Findings Denies vomiting 07/18/2012 None anxiety Pertinent Findings Denies weakness 07/18/2012 None anxiety Quality obsessive-compulsive 07/18/2012 None anxiety Onset and Resolution resolved 07/18/2012 None anxiety Onset of Symptom 1.5 years ago 07/18/2012 None anxiety Limitation on Activities does not limit activities 07/18/2012 None anxiety Frequency of Episodes decreasing 07/18/2012 None anxiety Significant Family History anxiety disorder 07/18/2012 None anxiety Pertinent Findings Denies avoidance behavior 07/18/2012 None anxiety Pertinent Findings Denies feeling of dread 07/18/2012 None anxiety Pertinent Findings Denies tachycardia 07/18/2012 None rash Location-Major on the arms 11/28/2011 None rash Location-Major on the abdomen 11/28/2011 None rash Location-Major on the hands 11/28/2011 None rash Quality acute None rash Color erythematous 11/28/2011 None rash Onset and Resolution ongoing 11/28/2011 None rash Onset of Symptom 1 month ago 11/28/2011 None rash Severity mild None rash Prior Treatments partially responsive to treatment 11/28/2011 None rash Triggers no known triggers 11/28/2011 None anxiety Pertinent Findings Denies weakness 08/15/2011 None anxiety Pertinent Findings upset stomach 08/15/2011 None anxiety Pertinent Findings tachycardia 08/15/2011 None anxiety Limitation on Activities moderately limits activities 08/15/2011 None anxiety Triggers activity 08/15/2011 None anxiety Triggers stress 08/15/2011 None anxiety Triggers performance 08/15/2011 None anxiety Quality panic attacks 08/15/2011 None anxiety Quality obsessive-compulsive 08/15/2011 None anxiety Frequency of Episodes increasing 08/15/2011 None anxiety Timing of Episodes in the afternoon 08/15/2011 None anxiety Timing of Episodes in the morning 08/15/2011 None anxiety Onset and Resolution ongoing 08/15/2011 None anxiety Pertinent Findings avoidance behavior 08/15/2011 None anxiety Pertinent Findings feeling of dread 08/15/2011 None anxiety Pertinent Findings Denies nausea 08/15/2011 None anxiety Quality worsening 05/18/2011 None anxiety Limitation on Activities moderately limits activities 05/18/2011 drives to and from work daily, but that is her limit anxiety Onset and Resolution gradual in onset 05/18/2011 None anxiety Onset and Resolution ongoing 05/18/2011 None anxiety Onset of Symptom during adulthood 05/18/2011 None anxiety Quality panic attacks 05/18/2011 None anxiety Triggers stress 05/18/2011 None anxiety Triggers performance 05/18/2011 None anxiety Pertinent Findings avoidance behavior 05/18/2011 None anxiety Pertinent Findings Denies dizziness 05/18/2011 None anxiety Pertinent Findings feeling of dread 05/18/2011 None anxiety Pertinent Findings Denies lightheadedness 05/18/2011 None anxiety Pertinent Findings Denies nausea 05/18/2011 None anxiety Pertinent Findings palpitations 05/18/2011 None anxiety Pertinent Findings Denies weakness 05/18/2011 None anxiety Pertinent Findings Denies vomiting 05/18/2011 None anxiety Pertinent Findings Denies tingling in extremities 05/18/2011 None anxiety Pertinent Findings tachycardia 05/18/2011 None anxiety Pertinent Findings shyness 05/18/2011 None rash Location-Major on the neck 03/01/2011 None rash Location-Major on the arms 03/01/2011 None rash Location-Head/Neck on the left side of the neck 03/01/2011 None rash Location-Major on the legs 03/01/2011 None rash Location-Extremities on the left upper arm 03/01/2011 None rash Location-Extremities on the left lower leg 03/01/2011 None rash Quality acute None rash Quality pruritic 03/01/2011 None rash Quality worsening 03/01/2011 None rash Prior Treatments unresponsive to treatment 03/01/2011 None rash Triggers topical applications 03/01/2011 None Advance Directives No Advance Directive data Encounters Encounter Performer Location Codes Date 99300 EST. PATIENT, LEVEL IV Diagnosis: Encounter for general adult medical examination with abnormal findings[ICD10: Z00.01] Diagnosis: Generalized anxiety disorder[ICD10: F41.1] Annalee Yoo MD, [facility] CPT-4: 69977 08/22/2018 [id number] EST. PATIENT, LEVEL III Diagnosis: Mastitis without abscess[ICD10: N61.0] Annalee Yoo MD, [facility] CPT-4: 91657 02/21/2018 ([id number]) 47900 EST. PATIENT, LEVEL III Diagnosis: Generalized anxiety disorder[ICD10: F41.1] Diagnosis: Major depressive disorder, recurrent, mild[ICD10: F33.0] Diagnosis: Superficial foreign body of right thumb, initial encounter[ICD10: S60.351A] Chelsie Yoo MD, [facility] CPT-4: 38427 12/2016 ([id number]) PREV VISIT EST AGE 18-39 Diagnosis: Encounter for general adult medical examination without abnormal findings[ICD10: Z00.00] Chelsie Yoo MD, [facility] CPT-4: 57307 05/03/2017 ([id number]) PREV VISIT EST AGE 18-39 Diagnosis: Encounter for gynecological examination (general) (routine) without abnormal findings[ICD10: Z01.419] Chelsie Yoo MD, [facility] CPT-4: 77737 12/17/2015 ([id number]) 80378 EST. PATIENT, LEVEL III Diagnosis: STREP SORE THROAT[ICD9: 034.0] [facility] CPT-4 : 28533 12/10/2014 ([id number]) PREV VISIT EST AGE 18-39 Diagnosis: Routine medical exam[ICD9: V70.0] [facility] CPT-4: 98274 11/17/2014 ([id number]) 79680 EST. PATIENT, LEVEL III Diagnosis: Mastitis[ICD9: 611.0] Chelsie Yoo MD, [facility] CPT-4: 10014 11/25/2013 ([id number]) 75561 EST. PATIENT, LEVEL III Diagnosis: COUGH[ICD9: 786.2] Diagnosis: ACUTE URI[ICD9: 465.9] Jeimy Yoo MD, [facility] CPT-4: 46161 07/01/2013 ([id number]) 09966 EST. PATIENT, LEVEL III Diagnosis: OBSESSIVE, COMPULSIVE DISEASE[ICD9: 300.3] Diagnosis: ANXIETY STATE[ICD9: 300.00] Chelsie Yoo MD, [facility] CPT- 4: 00943 07/18/2012 ([id number]) 19108 EST. PATIENT, LEVEL III Diagnosis: DERMATITIS DUE TO PLANT[ICD9: 692.6] Diagnosis: Pruritic condition[ICD9: 698.9] Jeimy Yoo MD, [facility] CPT-4: 31902 11/28/2011 ([id number]) 30562 EST. PATIENT, LEVEL III Diagnosis: OBSESSIVE, COMPULSIVE DISEASE[ICD9: 300.3] Diagnosis: GENERALIZED ANXIETY DISEASE[ICD9: 300.02] Diagnosis: Contact with potentially hazardous body fluids[ICD9: V15.85] Chelsie Yoo MD, [facility] CPT-4: 16568 08/15/2011 75727 EST. PATIENT, LEVEL IV Diagnosis: MARGE (generalized anxiety disorder)[ICD9: 300.02] Diagnosis: Obsessive compulsive disorder[ICD9: 300.3] Chelsie Yoo MD, [facility] CPT-4: 95589 05/18/2011 [id number] EST. PATIENT, LEVEL II Diagnosis: Contact dermatitis and eczema due to plant[ICD9: 692.6] Jeimy Yoo MD, [facility] CPT-4: 59415 03/01/2011 Plan of Care Planned Activity Notes Codes Status Date Care Plan: Comp Metabolic Pending 08/23/2018 Care Plan: Cbc With Differential Pending 08/23/2018 Care Plan: Tsh Pending 08/23/2018 Care Plan: Lipid Pending 08/23/2018 Visit Plan: Well Adult - pt was counseled about diet, exercise, and encouraged to follow a heart healthy diet and increase activity level. The patient was instructed to RTC yearly for well adult exams and PRN for acute illnesses. The pt was also instructed to have yearly labs for check of cholesterol, thyroid, chem panel, CBC, and renal functioning. 08/22/2018 Appointment: Annalee Flores WPtel: [facility] [place] (30 min) Complex 08/22/2018 Patient Education: Patient Medication Summary Completed 08/22/2018 Visit Plan: Mastitis - left - will send RX if no improvement will order diagnostic mammogram with US - The patient was instructed to use the antibiotic as per RX. The patient is to call for any change in symptoms, increase in size of the lesion, increase in pain, worsening redness, warmth, discharge. 02/21/2018 Appointment: Annalee Flores WPtel: [facility] [place] (15 min) Moderate 02/21/2018 Patient Education: Patient Medication Summary Completed 02/21/2018 Visit Plan: Chronic Depression and anxiety - the pt has symptoms of chronic anxiety and depression that have been fairly well controlled since the last office visit. The pt has expected periods of exacerbation with abatement of the symptoms with change in situational exposure. No change in current medications. Metal Splinter in thumb - removed with forceps today 06/14/2017 Appointment: Chelsie Yoo WPtel: [facility] [place] (15 min) Moderate 06/14/2017 Patient Education: Patient Medication Summary Completed 06/14/2017 Visit Plan: Well Adult - pt was counseled about diet, exercise, and encouraged to follow a heart healthy diet and increase activity level. The patient was instructed to RTC yearly for well adult exams and PRN for acute illnesses. The pt was also instructed to have yearly labs for check of cholesterol, thyroid, chem panel, CBC, and renal functioning. Depression - Increase dose of fluvoxamine to 100mg in morning and 50mg at hs. RTC in 6 weeks for eval of symptoms. Hx of iron deficiency - check cbc 05/03/2017 Appointment: Chelsie Yoo WPtel: [facility]6 [facility] [place] (15 min) Moderate 05/03/2017 Patient Education: Patient Medication Summary Completed 05/03/2017 Visit Plan: Well Adult - pt was counseled about diet, exercise, and encouraged to follow a heart healthy diet and increase activity level. The patient was instructed to RTC yearly for well adult exams and PRN for acute illnesses. The pt was also instructed to have yearly labs for check of cholesterol, thyroid, chem panel, CBC, and renal functioning. 12/17/2015 Appointment: Chelsie Yoo WPtel: [facility] (15 min) Moderate 12/17/2015 Patient Education: Patient Medication Summary Completed 12/17/2015 Visit Plan: Strep throat - pt give rx for antibiotic - sent to pharmacy - pt had swab of throat today - will culture the swab. 12/10/2014 Appointment: (10 min) Simple 12/10/2014 Patient Education: Patient Medication Summary Completed 12/10/2014 Patient Education: [facility] - [employer] - 18-64 - Dynamic Portal ID Completed 12/10/2014 Care Plan: C VICKY [place] Pending 12/10/2014 Visit Plan: Well Adult - pt was counseled about diet, exercise, and encouraged to follow a heart healthy diet and increase activity level. The patient was instructed to RTC yearly for well adult exams and PRN for acute illnesses. The pt was also instructed to have yearly labs for check of cholesterol, thyroid, chem panel, CBC, and renal functioning. 11/17/2014 Appointment: Chelsie Yoo WPtel: [facility] Physical 11/17/2014 Patient Education: Patient Medication Summary Completed 11/17/2014 Visit Plan: Mastitis - RX sent electronically for antibiotic - pt to call if symptoms do not improve. 11/25/2013 Patient Education: Patient Medication Summary Completed 11/25/2013 Visit Plan: URI - Pt advised to increase fluids, vitamin C. Discussed natural and expected course of this diagnosis and need to alert me if symtpoms do not follow expected course, or if any worse. RX sent to patient' s pharmacy. 07/01/2013 Appointment: Jeimy Sanchez WPtel: [phone] Sick 07/01/2013 Patient Education: Patient Medication Summary Completed 07/01/2013 Visit Plan: Obsessive compulsive disorder - pt is feeling well, has not had any symptoms for several months, she is interested in getting and would like to be off of the medications. I have recommended pt to have a month taper off of the luvox, will attempt to get tablets of 50mg and take her down to 50mg bid x 1 week, then 50mg in AM and 25mg at hs x 1 week, then 25mg bid x 1 week, then 25mg at AM x 1 week, then stop. 07/18/2012 Appointment: Chelsie Yoo WPtel: [phone] Established Patient Preventative visit 07/18/2012 Patient Education: Patient Medication Summary Completed 07/18/2012 Visit Plan: Contact dermatitis- Discussed natural and expected course of this diagnosis and need to alert me if symtpoms do not follow expected course, or if any worse. RX sent to patient's pharmacy. Kenalog injection today in the office. 11/28/2011 Appointment: Jeimy Sanchez WPtel: [phone] [phone] Other 11/28/2011 Patient Education: Patient Medication Summary Completed 11/28/2011 Visit Plan: OCD AND Anxiety - the patient has uncontrolled anxiety and will benefit from an SSRI on a daily basis to attempt control of the symptoms of anxiety (tachycardia, overwhelming sensations, stress, insomnia , etc). I also believe that the patient will benefit from very low dose of prn benzodiazepine. Pt is aware of the risks and benefits of treament with the above medications. PT IS TO STOP THE CELEXA AND START ON LUVOX CR 100 mg DAILY. INCREASE THE ABILIFY TO 5 MG X 1 WEEK, THEN GO BACK TO THE 2mg of abilify. check cbc, chem panel, and repeat hiv test (pt had exposure about 7 months preivously) 08/15/2011 Appointment: Chelsie Yoo WPtel: [phone] [facility]66[facility] Other 08/15/2011 Patient Education: Patient Medication Summary Completed 08/15/2011 Visit Plan: Anxiety and OCD - discussed diagnosis with Magali, and the need for her to seek counseling for behaviour modification. She has also been started on lexapro - 10mg daily - pt given RX for the medication. Hopefully her insurance will cover the medication, if not, will have to change to celexa. Pt to stay on deplin for now. Pt encouraged to reach out to her other family members who have had issues with OCD. 05/18/2011 Appointment: [facility]el[phone] [facility] Other 05/18/2011 Patient Education: Patient Medication Summary Completed 05/18/2011 Patient Education: Anxiety Completed 05/18/2011 Patient Education: Depression Completed 05/18/2011 Visit Plan: Contact dermatitis-Discussed natural and expected course of this diagnosis and need to alert me if symtpoms do not follow expected course, or if any worse. 03/01/2011 Appointment: Jeimy Sanchez [facility]Ptel[facility] [phone] [phone] [place] Injection 03/01/2011 Patient Education: Patient Medication Summary Completed 03/01/2011 Instructions Comment . Obsessive compulsive disorder - pt is feeling well, has not had any symptoms for several months, she is interested in getting and would like to be off of the medications. I have recommended pt to have a month taper off of the luvox, will attempt to get tablets of 50mg and take her down to 50mg bid x 1 week, then 50mg in AM and 25mg at hs x 1 week, then 25mg bid x 1 week, then 25mg at AM x 1 week, then stop. . Chronic Depression and anxiety - the pt has symptoms of chronic anxiety and depression that have been fairly well controlled since the last office visit. The pt has expected periods of exacerbation with abatement of the symptoms with change in situational exposure. No change in current medications. Metal Splinter in thumb - removed with forceps today . Well Adult - pt was counseled about diet, exercise, and encouraged to follow a heart healthy diet and increase activity level. The patient was instructed to RTC yearly for well adult exams and PRN for acute illnesses. The pt was also instructed to have yearly labs for check of cholesterol, thyroid, chem panel, CBC, and renal functioning. Depression - Increase dose of fluvoxamine to 100mg in morning and 50mg at hs. RTC in 6 weeks for eval of symptoms. Hx of iron deficiency - check cbc . Strep throat - pt give rx for antibiotic - sent to pharmacy - pt had swab of throat today - will culture the swab. Continue with caladryl as needed. Call if symptoms persist , or worsen. . Contact dermatitis-Discussed natural and expected course of this diagnosis and need to alert me if symtpoms do not follow expected course, or if any worse. . Well Adult - pt was counseled about diet, exercise, and encouraged to follow a heart healthy diet and increase activity level. The patient was instructed to RTC yearly for well adult exams and PRN for acute illnesses. The pt was also instructed to have yearly labs for check of cholesterol, thyroid, chem panel, CBC, and renal functioning. . Well Adult - pt was counseled about diet, exercise, and encouraged to follow a heart healthy diet and increase activity level. The patient was instructed to RTC yearly for well adult exams and PRN for acute illnesses. The pt was also instructed to have yearly labs for check of cholesterol, thyroid, chem panel, CBC, and renal functioning. . Mastitis - RX sent electronically for antibiotic - pt to call if symptoms do not improve. . URI - Pt advised to increase fluids, vitamin C. Discussed natural and expected course of this diagnosis and need to alert me if symtpoms do not follow expected course, or if any worse. RX sent to patient's pharmacy. . Anxiety and OCD - discussed diagnosis with Magali, and the need for her to seek counseling for behaviour modification. She has also been started on lexapro - 10mg daily - pt given RX for the medication. Hopefully her insurance will cover the medication, if not, will have to change to celexa. Pt to stay on deplin for now. Pt encouraged to reach out to her other family members who have had issues with OCD. . Well Adult - pt was counseled about diet, exercise, and encouraged to follow a heart healthy diet and increase activity level. The patient was instructed to RTC yearly for well adult exams and PRN for acute illnesses. The pt was also instructed to have yearly labs for check of cholesterol, thyroid, chem panel, CBC, and renal functioning. . OCD AND Anxiety - the patient has uncontrolled anxiety and will benefit from an SSRI on a daily basis to attempt control of the symptoms of anxiety (tachycardia, overwhelming sensations, stress, insomnia, etc ). I also believe that the patient will benefit from very low dose of prn benzodiazepine. Pt is aware of the risks and benefits of treament with the above medications. PT IS TO STOP THE CELEXA AND START ON LUVOX CR 100 mg DAILY. INCREASE THE ABILIFY TO 5 MG X 1 WEEK, THEN GO BACK TO THE 2mg of abilify. check cbc, chem panel, and repeat hiv test (pt had exposure about 7 months preivously) . Contact dermatitis- Discussed natural and expected course of this diagnosis and need to alert me if symtpoms do not follow expected course, or if any worse. RX sent to patient's pharmacy. Kenalog injection today in the office. . Mastitis - left - will send RX if no improvement will order diagnostic mammogram with US - The patient was instructed to use the antibiotic as per RX. The patient is to call for any change in symptoms, increase in size of the lesion, increase in pain, worsening redness, warmth, discharge.
--- OUTSIDE RECORDS SUMMARY | 2018-09-23 11:05 | XMS REPORT | CCD ---
Author Author [facility] Address [address] [place] [address] Phone Care Team Providers Care Product Management Consultant Name Role Phone PP Unavailable CCM Unavailable Summary Purpose Interface Exchange Insurance Providers Payer name Policy type / Coverage type Covered democrat ID Effective Begin Date Effective End Date [facility] [place] [id number] Unknown Family history Side Diagnosis Age At Onset No Family Disease Entered N/A Grandfather Diagnosis Age At Onset Hypertension Unknown Father Diagnosis Age At Onset Hypertension Unknown Mother Diagnosis Age At Onset Anemia Unknown Social History Social History Element Codes Description Effective Dates Number of children Unknown 2 05/03/2017 Employment Unknown 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 Unknown Has never used illegal drugs 03/06/2011 Marital status Unknown 03/01/[address]: 339019276 Never smoker 03/01/[address]: 250434375 Never drinks alcohol 03/01/2011 Allergies, Adverse Reactions, [...] Fill Instructions fluvoxamine 100 mg tablet RxNorm: 511506 1 Tablet(s) PO BID 08/16/2019 Active Keflex 500 mg capsule RxNorm: 235696 1 Capsule(s) PO TID 201703/02/2018 Inactive fluvoxamine 100 mg tablet RxNorm: 400646 1.5 Tablet(s) PO daily 100mg in morning and 50mg at night 09/01/2017 08/21/2018 Inactive fluvoxamine 100 mg tablet RxNorm: 243205 1.5 Tablet(s) PO daily 100mg in morning and 50mg at night 08/21/2017 08/31/2017 Inactive fluvoxamine 100 mg tablet RxNorm: 156651 1.5 Tablet(s) PO daily 100mg in morning and 50mg at night 05/03/2017 08/20/2017 Inactive Luvox CR 100 mg capsule,extended release RxNorm: 458732 1 Capsule(s) PO daily 02/06/2017 02/06/2017 Inactive TAKE 1 CAPSULE BY MOUTH DAILY;Patient requests 90 day supply Luvox CR 100 mg capsule,extended release RxNorm: 919983 1 Capsule(s) PO daily 07/31/2015 04/25/2016 Inactive TAKE 1 CAPSULE BY MOUTH DAILY;Patient requests 90 day supply nystatin 100,000 unit/mL oral suspension RxNorm: 063164 5 Milliliter(s) SWISH AND SWALLOW PO QID x7 days Thrush 12/18/2014 12/24/2014 Inactive Levaquin 500 mg tablet RxNorm: 179235 1 Tablet(s) PO daily 05/201512/20/2014 Inactive prednisone 20 mg tablet RxNorm: 633991 1 Tablet(s) PO BID 12/1212/16/2014 Inactive Levaquin 500 mg tablet RxNorm: 287240 1 Tablet(s) PO daily 11/201412/17/2014 Inactive Levaquin 500 mg tablet RxNorm: 495783 1 Tablet(s) PO daily 11/201412/11/2014 Inactive prednisone 20 mg tablet RxNorm: 928729 1 Tablet(s) PO BID 12/1212/11/2014 Inactive Zithromax Z-Tobin 250 mg tablet RxNorm: 821107 1 Tablet(s) PO daily 12/10/2014 12/14/2014 Inactive Zpack as directed Luvox CR 100 mg capsule,extended release RxNorm: 396017 1 Capsule(s) PO daily 06/24/2014 07/30/2015 Inactive TAKE 1 CAPSULE BY MOUTH DAILY;Patient requests 90 day supply Keflex 500 mg capsule RxNorm: 606903 1 Capsule(s) PO TID 201312/01/2013 Inactive Flonase 50 mcg/actuation nasal spray,suspension RxNorm: 231213 2 Alto NASAL daily SPRAY 2 SPRAYS IN EACH NOSTRIL DAILY 11/04/2013 05/02/2014 Inactive Flonase 50 mcg/actuation nasal spray,suspension RxNorm: 483980 Alto NASAL SPRAY 2 SPRAYS IN EACH NOSTRIL DAILY 11/04/2013 11/03/2013 Inactive Flonase 50 mcg/actuation nasal spray,suspension RxNorm: 858651 2 [place] NASAL daily 07/01/2013 07/07/2013 Inactive Luvox 50 mg tablet RxNorm: 902883 1 Tablet(s) PO BID 50mg bid x 1week, then 50mg in am 25mg at hs x 1wk then 25mg bid, x 1 week then 25mg daily x 1wk then stop 07/18/2012 08/16/2012 Inactive fluticasone 50 mcg/actuation Nasal [place], Susp RxNorm: 0524440 2 Alto NASAL BID 03/21/2012 04/14/2013 Inactive Kenalog 40 mg/mL Susp for Injection RxNorm: 5852969 1 Milliliter(s) Inj 11/28/2011 11/28/2011 Inactive Ativan 0.5 mg Tab RxNorm: 414444 1 Tablet(s) PO TID PRN No Stop Date Active q am and q pm and prn anxiety attack Luvox CR 100 mg 24 hr Cap RxNorm: 023254 Capsule(s) PO 201106/23/2014 Inactive TAKE 1 CAPSULE BY MOUTH DAILY;Patient requests 90 day supply Luvox CR 100 mg 24 hr Cap RxNorm: 631994 1 Capsule(s) PO daily 08/15/2011 08/16/2011 Inactive Lexapro 10 mg Tab RxNorm: 133875 1 Tablet(s) PO daily 201007/15/2011 Inactive prednisone 5 mg Tabs in a Dose Pack RxNorm: 737232 Tablet(s) PO 03/03/2011 07/15/2011 Inactive triamcinolone acetonide (PF) 40 mg/mL Intraocular Susp RxNorm: 9900054 1 Milliliter(s) IM 03/01/2011 07/15/2011 Inactive + Iron oral RxNorm: oral No Start Date Active nystatin 100,000 unit/mL oral suspension RxNorm: 497066 Unit(s) PO No Start Date 12/17/2014 Inactive Biotene oral RxNorm: oral No Start Date 02/2016 Inactive prednisone 5 mg Tabs in a Dose Pack RxNorm: 784466 Tablet(s) PO No Start Date 03/02/2011 Inactive Zithromax Z-Tobin 250 mg tablet RxNorm: 410026 Tablet(s) PO No Start Date 11/03/2013 Inactive fluticasone 50 mcg/actuation Nasal [place], Susp RxNorm: 1870389 2 Alto NASAL BID No Start Date 03/20/2012 Inactive Celexa 20 mg Tab RxNorm: 138340 1 Tablet(s) PO daily No Start Date 07/18/2012 Inactive Abilify 2 mg Tab RxNorm: 932211 1 Tablet(s) PO daily No Start Date 07/18/2012 Inactive Deplin Oral RxNorm: Oral No Start Date 03/2013 Inactive Lexapro 10 mg Tab RxNorm: 808024 Tablet(s) PO daily No Start Date 05/17/2011 Inactive prednisone 10 mg Tab RxNorm: 895928 Tablet(s) PO UD prednisone 10 mg - 4 x 2 days , then 3 x2 days, then 2x days, then 1 x 2 days, then stop No Start Date 07/18/2012 Inactive promethazine 25 mg tablet RxNorm: 063383 1 Tablet(s) PO Q6 PRN No Start Date 12/16/2015 Inactive Ativan 0.5 mg Tab RxNorm: 623466 1 Tablet(s) PO TID PRN No Start Date 09/06/2011 Inactive q am and q pm and prn anxiety attack Medication Administered Medication Codes Instructions Start Date Status Kenalog 40 mg/mL Susp for Injection RxNorm: 3346418 1Milliliter 11/28/2011 No longer Active Immunizations Vaccine [...] Item Item Code Result Date Comp Metabolic Uvq152 NA 140 mEq/L 05/03/2017 Comp Metabolic Uww269 K 4.1 mEq/L 05/03/2017 Comp Metabolic Gul190 CL 102 mEq/L 05/03/2017 Comp Metabolic Udf119 CO2 29.0 mEq/L 05/03/2017 Comp Metabolic Grt107 ANION GAP 13 05/03/2017 Comp Metabolic Qic016 GLUCOSE 69 mg/dL 05/03/2017 Comp Metabolic Phv753 Creat 0.9 mg/dL 05/03/2017 Comp Metabolic Mcs311 eGFR 81 ml/min/1.73m2 05/03/2017 Comp Metabolic Uhk549 BUN 9 mg/dL 05/03/2017 Comp Metabolic Gwp712 B/C Ratio 10.5 Ratio 05/03/2017 Comp Metabolic Mxj530 CALCIUM 9.7 mg/dL 05/03/2017 Comp Metabolic Hrl584 ALK PHOS 91 U/L 05/03/2017 Comp Metabolic Apf592 AST(SGOT) 16 U/L 05/03/2017 Comp Metabolic Ejy822 ALT(SGPT) 16 U/L 05/03/2017 Comp Metabolic Dpr164 BILI T 0.5 mg/dL 05/03/2017 Comp Metabolic Snv708 ALBUMIN 4.6 g/dL 05/03/2017 Comp Metabolic Yrw310 TPRO 7.1 g/dL 05/03/2017 Comp Metabolic Frk220 GLOB 2.5 g/dL 05/03/2017 Comp Metabolic Exh295 A/G Ratio 1.8 Ratio 05/03/2017 Comp Metabolic Ujb017 Osmo 276 mOsmo 05/03/2017 Magnesium Ord90 Mag [...] 29.9 pg 05/03/2017 Cbc With Differential Ord2 [place]% 6.7 % 05/03/2017 Cbc With Differential Ord2 MCHC 34.2 pg 05/03/2017 Cbc With Differential Ord2 Eos% 2.0 % 05/03/2017 Cbc With Differential Ord2 PLT 263 K/ul 05/03/2017 Cbc With Differential Ord2 Baso% 0.2 % 05/03/2017 Cbc With Differential Ord2 RDW 13.1 % 05/03/2017 Cbc With Differential Ord2 Neut ABS# 3.69 K/ul 05/03/2017 Cbc With Differential Ord2 Lymph ABS# 1.71 K/ul 05/03/2017 Cbc With Differential Ord2 [place] ABS# 0.4 K/ul 05/03/2017 Cbc With Differential [...] A SC (STREP A ASSAY W/OPTIC) CPT-4: 19844 12/10/2014 TRIAMCINOLONE ACET INJ NOS CPT-4: J3301 11/28/2011 THER/PROPH/DIAG INJ SC/IM CPT-4: 61437 11/28/2011 ROUTINE VENIPUNCTURE CPT-4: 93671 08/15/2011 TRIAMCINOLONE ACET INJ NOS CPT-4: J3301 03/01/2011 THER/PROPH/DIAG INJ SC/IM CPT-4: 23265 03/01/2011 Vital Signs Date Vital 08/22/2018 BMI: 20.8 Code: 13344-9 Height: 5'8" Weight: 137 lbs 02/21/2018 Blood Pressure 1: 104/62 Code : 8480-6 BMI: 19.9 Code : 35036-4 Heart Rate 1 : 65 bpm Height: 5'8" SpO2: 99% Temperature: 36.8 (C) / 98.2 (F) Weight: 131 lbs 06/14/2017 Blood Pressure 1: 116/80 Code : 8480-6 BMI: 21.6 Code : 17815-4 Heart Rate 1 : 61 bpm Height: 5'8" SpO2: 98% Weight: 142 lbs 05/03/2017 Blood Pressure 1: 110/80 Code : 8480-6 BMI: 22.2 Code : 18783-9 Heart Rate 1 : 79 bpm Height: 5'8" SpO2: 98% Weight: 146 lbs 12/17/2015 Blood Pressure 1: 108/78 Code : 8480-6 BMI: 22.0 Code : 21047-3 Heart Rate 1 : 66 bpm Height: 5'8" SpO2: 98% Weight: 145 lbs 12/10/2014 Temperature: 36.9 (C) / 98.5 (F) 11/17/2014 Blood Pressure 1: 110/64 Code : 8480-6 BMI: 21.4 Code : 68521-4 Heart Rate 1 : 68 bpm Height: 5'8" Weight: 141 lbs 11/25/2013 Blood Pressure 1: 102/78 Code : 8480-6 Heart Rate 1: 104 bpm Temperature: 37.6 (C) / 99.7 (F) Weight: 132 lbs 07/01/2013 Blood Pressure 1: 122/76 Code : 8480-6 BMI: 22.0 Code : 30219-0 Heart Rate 1 : 100 bpm Height: 5'8" Temperature: 36.8 (C) / 98.3 (F) Weight: 145 lbs 07/18/2012 Blood Pressure 1: 112/68 Code : 8480-6 BMI: 21.7 Code : 14224-9 Heart Rate 1 : 80 bpm Height: 5'8" Weight: 143 lbs 11/28/2011 Blood Pressure 1: 98/62 Code : 8480-6 BMI: 21.3 Code : 69317-4 Heart Rate 1 : 90 bpm Height: 5'8" Respiratory Rate: 16 bpm Weight: 140 lbs 08/15/2011 Blood Pressure 1: 108/74 Code : 8480-6 BMI: 19.8 Code : 30856-4 Heart Rate 1 : 78 bpm Height: 5'8" Respiratory Rate: 16 bpm Weight: 130 lbs 05/18/2011 Blood Pressure 1: 104/80 Code : 8480-6 BMI: 21.0 Code : 24951-4 Heart Rate 1 : 92 bpm Height: 5'8" Respiratory Rate: 12 bpm Weight: 138 lbs 03/01/2011 Blood Pressure 1: 120/72 Code : 8480-6 BMI: 21.6 Code : 01479-2 Heart Rate 1 : 68 bpm Height: [...] data Encounters Encounter Performer Location Codes Date 27977 EST. PATIENT, LEVEL IV Diagnosis: Encounter for general adult medical examination with abnormal findings[ICD10: Z00.01] Diagnosis: Generalized anxiety disorder[ICD10: F41.1] Annalee Yoo MD, [facility] CPT-4: 34943 08/22/2018 04856 EST. PATIENT, LEVEL III Diagnosis: Mastitis without abscess[ICD10: N61.0] Annalee Yoo MD, [facility] CPT-4: 45301 02/21/2018 ([id number]) 61606 EST. PATIENT, LEVEL III Diagnosis: Generalized anxiety disorder[ICD10: F41.1] Diagnosis: Major depressive disorder, recurrent, mild[ICD10: F33.0] Diagnosis: Superficial foreign body of right thumb, initial encounter[ICD10: S60.351A] Chelsie Yoo MD, [facility] CPT-4: 22744 12/2016 ([id number]) PREV VISIT EST AGE 18-39 Diagnosis: Encounter for general adult medical examination without abnormal findings[ICD10: Z00.00] Chelsie Yoo MD, [facility] CPT-4: 47633 05/03/2017 ([id number]) PREV VISIT EST AGE 18-39 Diagnosis: Encounter for gynecological examination (general) (routine) without abnormal findings[ICD10: Z01.419] Chelsie Yoo MD, [facility] CPT-4: 10556 12/17/2015 ([id number]) 11865 EST. PATIENT, LEVEL III Diagnosis: STREP SORE THROAT[ICD9: 034.0] [facility] CPT-4 : 98736 12/10/2014 ([id number]) PREV VISIT EST AGE 18-39 Diagnosis: Routine medical exam[ICD9: V70.0] [facility] CPT-4: 57944 11/17/2014 ([id number]) 47037 EST. PATIENT, LEVEL III Diagnosis: Mastitis[ICD9: 611.0] Chelsie Yoo MD, [facility] CPT-4: 58884 11/25/2013 ([id number]) 42099 EST. PATIENT, LEVEL III Diagnosis: COUGH[ICD9: 786.2] Diagnosis: ACUTE URI[ICD9: 465.9] Jeimy Yoo MD, [facility] CPT-4: 52690 07/01/2013 ([id number]) 58693 EST. PATIENT, LEVEL III Diagnosis: OBSESSIVE, COMPULSIVE DISEASE[ICD9: 300.3] Diagnosis: ANXIETY STATE[ICD9: 300.00] Chelsie Yoo MD, [facility] CPT- 4: 28115 07/18/2012 ([id number]) 07966 EST. PATIENT, LEVEL III Diagnosis: DERMATITIS DUE TO PLANT[ICD9: 692.6] Diagnosis: Pruritic condition[ICD9: 698.9] Jeimy Yoo MD, [facility] CPT-4: 79843 11/28/2011 ([id number]) 16197 EST. PATIENT, LEVEL III Diagnosis: OBSESSIVE, COMPULSIVE DISEASE[ICD9: 300.3] Diagnosis: GENERALIZED ANXIETY DISEASE[ICD9: 300.02] Diagnosis: Contact with potentially hazardous body fluids[ICD9: V15.85] Chelsie Yoo MD, [facility] CPT-4: 58298 08/15/2011 [id number] EST. PATIENT, LEVEL IV Diagnosis: MARGE (generalized anxiety disorder)[ICD9: 300.02] Diagnosis: Obsessive compulsive disorder[ICD9: 300.3] Chelsie Yoo MD, [facility] CPT-4: 66536 05/18/2011 [id number] EST. PATIENT, LEVEL II Diagnosis: Contact dermatitis and eczema due to plant[ICD9: 692.6] Jeimy Yoo MD, [facility] CPT-4: 00301 03/01/2011 Plan of Care Planned Activity Notes [...] renal functioning. 08/22/2018 Appointment: [facility]ale[facility] Flores [facility]Ptel: [facility] [place] ([facility] min) Complex 08/22/2018 Patient Education: [...] warmth, discharge. 02/21/2018 Appointment: Annalee Flores WPtel: [facility]7 [facility] [place] (15 min) Moderate 02/21/2018 Patient Education: [...] forceps today 06/14/2017 Appointment: [facility] [place] ([facility] min) Moderate 06/14/2017 Patient [...] check cbc 05/03/2017 Appointment: Chelsie Yoo WPtel: [facility]4 [facility] [place] (15 min) Moderate 05/03/2017 Patient [...] renal functioning. 12/17/2015 Appointment: Chelsie Yoo WPtel: [facility]2 [facility] (15 min) Moderate 12/17/2015 Patient Education: Patient Medication Summary Completed 12/17/2015 Visit Plan: Strep throat - pt give rx for antibiotic - sent to pharmacy - pt had swab of throat today - will culture the swab. 12/10/2014 Appointment: (10 min) Simple 12/10/2014 Patient Education: Patient Medication Summary Completed 12/10/2014 Patient Education: [facility] - [employer] - 18-64 - Dynamic [...] renal functioning. 11/17/2014 Appointment: Chelsie Yoo WPtel: [facility]1 [facility] Physical 11/17/2014 Patient Education: Patient Medication [...] s pharmacy. 07/01/2013 Appointment: Jeimy Sanchez WPtel: [facility]2 [phone] Sick 07/01/2013 Patient Education: Patient Medication Summary [...] stop. 07/18/2012 Appointment: Chelsie Yoo WPtel: [phone] Established Patient Preventative visit 07/18/2012 Patient Education: Patient Medication Summary Completed 07/18/2012 Visit Plan: Contact dermatitis- Discussed natural and expected course of this diagnosis and need to alert me if symtpoms do not follow expected course, or if any worse. RX sent to patient's pharmacy. Kenalog injection today in the office. 11/28/2011 Appointment: Jeimy Sanchez WPtel: [phone] [phone] Other 11/28/2011 Patient Education: Patient Medication Summary [...] preivously) 08/15/2011 Appointment: Chelsie Yoo WPtel: [phone] Other 08/15/2011 Patient Education: Patient Medication Summary [...] with OCD. 05/18/2011 Appointment: [phone] [facility] 05/18/2011 Patient Education: Patient Medication Summary Completed 05/18/2011 Patient Education: Anxiety Completed 05/18/2011 Patient Education: Depression Completed 05/18/2011 Visit Plan: Contact dermatitis-Discussed natural and expected course of this diagnosis and need to alert me if symtpoms do not follow expected course, or if any worse. 03/01/2011 Appointment: [facility] Sanchez [facility]el[phone] [place] Injection 03/01/2011 Patient Education: Patient Medication [...]
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
--- OUTSIDE RECORDS SUMMARY | 2018-09-23 11:08 | XMS REPORT | CCD ---
Author Author [facility] Address [address] [place] [address] Phone Care Team Providers Care Intensive Care Unit Registered Nurse Name Role Phone PP Unavailable CCM Unavailable Summary Purpose Interface Exchange Insurance Providers Payer name Policy type / Coverage type Covered libertarian ID Effective Begin Date Effective End Date [place] [employer] [facility] [employer]/[facility] [id number] Unknown Family history Side Diagnosis Age At Onset No Family Disease Entered N/A Grandfather Diagnosis Age At Onset Hypertension Unknown Father Diagnosis Age At Onset Hypertension Unknown Mother Diagnosis Age At Onset Anemia Unknown Social History Social History Element Codes Description Effective Dates Number of children Unknown 2 05/03/2017 Employment Unknown 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 Unknown Has never used illegal drugs 03/06/2011 Marital status Unknown 03/01/[address]: 159116206 Never smoker 03/01/[address]: 781280420 Never drinks alcohol 03/01/2011 Allergies, Adverse Reactions, [...] Fill Instructions Keflex 500 mg capsule RxNorm: 555285 1 Capsule(s) PO TID 201703/02/2018 Active fluvoxamine 100 mg tablet RxNorm: 367579 1.5 Tablet(s) PO daily 100mg in morning and 50mg at night 09/01/2017 08/26/2018 Active fluvoxamine 100 mg tablet RxNorm: 252583 1.5 Tablet(s) PO daily 100mg in morning and 50mg at night 08/21/2017 08/31/2017 Inactive fluvoxamine 100 mg tablet RxNorm: 097663 1.5 Tablet(s) PO daily 100mg in morning and 50mg at night 05/03/2017 08/20/2017 Inactive Luvox CR 100 mg capsule,extended release RxNorm: 506524 1 Capsule(s) PO daily 02/06/2017 02/06/2017 Inactive TAKE 1 CAPSULE BY MOUTH DAILY;Patient requests 90 day supply Luvox CR 100 mg capsule,extended release RxNorm: 773549 1 Capsule(s) PO daily 07/31/2015 04/25/2016 Inactive TAKE 1 CAPSULE BY MOUTH DAILY;Patient requests 90 day supply nystatin 100,000 unit/mL oral suspension RxNorm: 344136 5 Milliliter(s) SWISH AND SWALLOW PO QID x7 days Thrush 12/18/2014 12/24/2014 Inactive Levaquin 500 mg tablet RxNorm: 487977 1 Tablet(s) PO daily 05/201512/20/2014 Inactive prednisone 20 mg tablet RxNorm: 084950 1 Tablet(s) PO BID 12/1212/16/2014 Inactive Levaquin 500 mg tablet RxNorm: 681836 1 Tablet(s) PO daily 11/201412/17/2014 Inactive Levaquin 500 mg tablet RxNorm: 498815 1 Tablet(s) PO daily 11/201412/11/2014 Inactive prednisone 20 mg tablet RxNorm: 329851 1 Tablet(s) PO BID 12/1212/11/2014 Inactive Zithromax Z-Tobin 250 mg tablet RxNorm: 969455 1 Tablet(s) PO daily 12/10/2014 12/14/2014 Inactive Zpack as directed Luvox CR 100 mg capsule,extended release RxNorm: 535155 1 Capsule(s) PO daily 06/24/2014 07/30/2015 Inactive TAKE 1 CAPSULE BY MOUTH DAILY;Patient requests 90 day supply Keflex 500 mg capsule RxNorm: 244493 1 Capsule(s) PO TID 201312/01/2013 Inactive Flonase 50 mcg/actuation nasal spray,suspension RxNorm: 493700 2 [place] NASAL daily SPRAY 2 SPRAYS IN EACH NOSTRIL DAILY 11/04/2013 05/02/2014 Inactive Flonase 50 mcg/actuation nasal spray,suspension RxNorm: 785356 [place] NASAL SPRAY 2 SPRAYS IN EACH NOSTRIL DAILY 11/04/2013 11/03/2013 Inactive Flonase 50 mcg/actuation nasal spray,suspension RxNorm: 794971 2 [place] NASAL daily 07/01/2013 07/07/2013 Inactive Luvox 50 mg tablet RxNorm: 871045 1 Tablet(s) PO BID 50mg bid x 1week, then 50mg in am 25mg at hs x 1wk then 25mg bid, x 1 week then 25mg daily x 1wk then stop 07/18/2012 08/16/2012 Inactive fluticasone 50 mcg/actuation Nasal [place], Susp RxNorm: 3577119 2 [place] NASAL BID 03/21/2012 04/14/2013 Inactive Kenalog 40 mg/mL Susp for Injection RxNorm: 5220076 1 Milliliter(s) Inj 11/28/2011 11/28/2011 Inactive Ativan 0.5 mg Tab RxNorm: 494745 1 Tablet(s) PO TID PRN No Stop Date Active q am and q pm and prn anxiety attack Luvox CR 100 mg 24 hr Cap RxNorm: 515519 Capsule(s) PO 201106/23/2014 Inactive TAKE 1 CAPSULE BY MOUTH DAILY;Patient requests 90 day supply Luvox CR 100 mg 24 hr Cap RxNorm: 113931 1 Capsule(s) PO daily 08/15/2011 08/16/2011 Inactive Lexapro 10 mg Tab RxNorm: 980637 1 Tablet(s) PO daily 201007/15/2011 Inactive prednisone 5 mg Tabs in a Dose Pack RxNorm: 540581 Tablet(s) PO 03/03/2011 07/15/2011 Inactive triamcinolone acetonide (PF) 40 mg/mL Intraocular Susp RxNorm: 3312141 1 Milliliter(s) IM 03/01/2011 07/15/2011 Inactive + Iron oral RxNorm: oral No Start Date Active nystatin 100,000 unit/mL oral suspension RxNorm: 087963 Unit(s) PO No Start Date 12/17/2014 Inactive Biotene oral RxNorm: oral No Start Date 02/2016 Inactive prednisone 5 mg Tabs in a Dose Pack RxNorm: 770020 Tablet(s) PO No Start Date 03/02/2011 Inactive Zithromax Z-Tobin 250 mg tablet RxNorm: 109013 Tablet(s) PO No Start Date 11/03/2013 Inactive fluticasone 50 mcg/actuation Nasal [place], Susp RxNorm: 1766583 2 [place] NASAL BID No Start Date 03/20/2012 Inactive Celexa 20 mg Tab RxNorm: 149631 1 Tablet(s) PO daily No Start Date 07/18/2012 Inactive Abilify 2 mg Tab RxNorm: 546925 1 Tablet(s) PO daily No Start Date 07/18/2012 Inactive Deplin Oral RxNorm: Oral No Start Date 03/2013 Inactive Lexapro 10 mg Tab RxNorm: 319169 Tablet(s) PO daily No Start Date 05/17/2011 Inactive prednisone 10 mg Tab RxNorm: 753562 Tablet(s) PO UD prednisone 10 mg - 4 x 2 days , then 3 x2 days, then 2x days, then 1 x 2 days, then stop No Start Date 07/18/2012 Inactive promethazine 25 mg tablet RxNorm: 097216 1 Tablet(s) PO Q6 PRN No Start Date 12/16/2015 Inactive Ativan 0.5 mg Tab RxNorm: 473366 1 Tablet(s) PO TID PRN No Start Date 09/06/2011 Inactive q am and q pm and prn anxiety attack Medication Administered Medication Codes Instructions Start Date Status Kenalog 40 mg/mL Susp for Injection RxNorm: 1949587 1Milliliter 11/28/2011 No longer Active Immunizations Vaccine [...] Item Item Code Result Date Comp Metabolic Rxk070 NA 140 mEq/L 05/03/2017 Comp Metabolic Brw614 K 4.1 mEq/L 05/03/2017 Comp Metabolic Vrm383 CL 102 mEq/L 05/03/2017 Comp Metabolic Lze324 CO2 29.0 mEq/L 05/03/2017 Comp Metabolic Jdo890 ANION GAP 13 05/03/2017 Comp Metabolic Czr558 GLUCOSE 69 mg/dL 05/03/2017 Comp Metabolic Bqw406 Creat 0.9 mg/dL 05/03/2017 Comp Metabolic Gfh099 eGFR 81 ml/min/1.73m2 05/03/2017 Comp Metabolic Pch543 BUN 9 mg/dL 05/03/2017 Comp Metabolic Jaw529 B/C Ratio 10.5 Ratio 05/03/2017 Comp Metabolic Isy535 CALCIUM 9.7 mg/dL 05/03/2017 Comp Metabolic Pev142 ALK PHOS 91 U/L 05/03/2017 Comp Metabolic Cld452 AST(SGOT) 16 U/L 05/03/2017 Comp Metabolic Vmn403 ALT(SGPT) 16 U/L 05/03/2017 Comp Metabolic Btv515 BILI T 0.5 mg/dL 05/03/2017 Comp Metabolic Mbc833 ALBUMIN 4.6 g/dL 05/03/2017 Comp Metabolic Ums104 TPRO 7.1 g/dL 05/03/2017 Comp Metabolic Lqp838 GLOB 2.5 g/dL 05/03/2017 Comp Metabolic Jga274 A/G Ratio 1.8 Ratio 05/03/2017 Comp Metabolic Sfz547 Osmo 276 mOsmo 05/03/2017 Magnesium Ord90 Mag [...] 29.9 pg 05/03/2017 Cbc With Differential Ord2 [place]% 6.7 % 05/03/2017 Cbc With Differential Ord2 [...] 1.71 K/ul 05/03/2017 Cbc With Differential Ord2 [place] ABS# 0.4 K/ul 05/03/2017 Cbc With Differential [...] A SC (STREP A ASSAY W/OPTIC) CPT-4: 19406 12/10/2014 TRIAMCINOLONE ACET INJ NOS CPT-4: J3301 11/28/2011 THER/PROPH/DIAG INJ SC/IM CPT-4: 02234 11/28/2011 ROUTINE VENIPUNCTURE CPT-4: 18792 08/15/2011 TRIAMCINOLONE ACET INJ NOS CPT-4: J3301 03/01/2011 THER/PROPH/DIAG INJ SC/IM CPT-4: 79464 03/01/2011 Vital Signs Date Vital 02/21/2018 Blood Pressure 1: 104/62 Code : 8480-6 BMI: 19.9 Code : 54979-7 Heart Rate 1 : 65 bpm Height: 5'8" SpO2: 99% Temperature: 36.8 (C) / 98.2 (F) Weight: 131 lbs 06/14/2017 Blood Pressure 1: 116/80 Code : 8480-6 BMI: 21.6 Code : 12074-4 Heart Rate 1 : 61 bpm Height: 5'8" SpO2: 98% Weight: 142 lbs 05/03/2017 Blood Pressure 1: 110/80 Code : 8480-6 BMI: 22.2 Code : 86922-6 Heart Rate 1 : 79 bpm Height: 5'8" SpO2: 98% Weight: 146 lbs 12/17/2015 Blood Pressure 1: 108/78 Code : 8480-6 BMI: 22.0 Code : 30593-3 Heart Rate 1 : 66 bpm Height: 5'8" SpO2: 98% Weight: 145 lbs 12/10/2014 Temperature: 36.9 (C) / 98.5 (F) 11/17/2014 Blood Pressure 1: 110/64 Code : 8480-6 BMI: 21.4 Code : 70722-8 Heart Rate 1 : 68 bpm Height: 5'8" Weight: 141 lbs 11/25/2013 Blood Pressure 1: 102/78 Code : 8480-6 Heart Rate 1: 104 bpm Temperature: 37.6 (C) / 99.7 (F) Weight: 132 lbs 07/01/2013 Blood Pressure 1: 122/76 Code : 8480-6 BMI: 22.0 Code : 40752-0 Heart Rate 1 : 100 bpm Height: 5'8" Temperature: 36.8 (C) / 98.3 (F) Weight: 145 lbs 07/18/2012 Blood Pressure 1: 112/68 Code : 8480-6 BMI: 21.7 Code : 76300-4 Heart Rate 1 : 80 bpm Height: 5'8" Weight: 143 lbs 11/28/2011 Blood Pressure 1: 98/62 Code : 8480-6 BMI: 21.3 Code : 59605-2 Heart Rate 1 : 90 bpm Height: 5'8" Respiratory Rate: 16 bpm Weight: 140 lbs 08/15/2011 Blood Pressure 1: 108/74 Code : 8480-6 BMI: 19.8 Code : 81219-6 Heart Rate 1 : 78 bpm Height: 5'8" Respiratory Rate: 16 bpm Weight: 130 lbs 05/18/2011 Blood Pressure 1: 104/80 Code : 8480-6 BMI: 21.0 Code : 66379-0 Heart Rate 1 : 92 bpm Height: 5'8" Respiratory Rate: 12 bpm Weight: 138 lbs 03/01/2011 Blood Pressure 1: 120/72 Code : 8480-6 BMI: 21.6 Code : 85793-6 Heart Rate 1 : 68 bpm Height: [...] data Encounters Encounter Performer Location Codes Date 99093 EST. PATIENT, LEVEL III Diagnosis: Mastitis without abscess[ICD10: N61.0] [facility] CPT-4: 41522 02/21/2018 ([id number]) 08109 EST. PATIENT, LEVEL III Diagnosis: Generalized anxiety disorder[ICD10: F41.1] Diagnosis: Major depressive disorder, recurrent, mild[ICD10: F33.0] Diagnosis: Superficial foreign body of right thumb, initial encounter[ICD10: S60.351A] Chelsie Yoo MD, [facility] CPT-4: 47868 12/2016 ([id number]) PREV VISIT EST AGE 18-39 Diagnosis: Encounter for general adult medical examination without abnormal findings[ICD10: Z00.00] [facility] CPT-4: 54278 05/03/2017 ([id number]) PREV VISIT EST AGE 18-39 Diagnosis: Encounter for gynecological examination (general) (routine) without abnormal findings[ICD10: Z01.419] Chelsie Yoo MD, [facility] CPT-4: 48815 12/17/2015 ([id number]) 20395 EST. PATIENT, LEVEL III Diagnosis: STREP SORE THROAT[ICD9: 034.0] Esha Yoo MD, [facility] CPT-4 : 77906 12/10/2014 ([id number]) PREV VISIT EST AGE 18-39 Diagnosis: Routine medical exam[ICD9: V70.0] [facility] CPT-4: 24965 11/17/2014 ([id number]) 86137 EST. PATIENT, LEVEL III Diagnosis: Mastitis[ICD9: 611.0] [facility] CPT-4: 12806 11/25/2013 ([id number]) 40287 EST. PATIENT, LEVEL III Diagnosis: COUGH[ICD9: 786.2] Diagnosis: ACUTE URI[ICD9: 465.9] [facility] CPT-4: 27196 07/01/2013 ([id number]) 42819 EST. PATIENT, LEVEL III Diagnosis: OBSESSIVE, COMPULSIVE DISEASE[ICD9: 300.3] Diagnosis: ANXIETY STATE[ICD9: 300.00] Chelsie Yoo MD, [facility] CPT- 4: 98372 07/18/2012 ([id number]) 45689 EST. PATIENT, LEVEL III Diagnosis: DERMATITIS DUE TO PLANT[ICD9: 692.6] Diagnosis: Pruritic condition[ICD9: 698.9] Jeimy Yoo MD, [facility] CPT-4: 17715 11/28/2011 ([id number]) 22849 EST. PATIENT, LEVEL III Diagnosis: OBSESSIVE, COMPULSIVE DISEASE[ICD9: 300.3] Diagnosis: GENERALIZED ANXIETY DISEASE[ICD9: 300.02] Diagnosis: Contact with potentially hazardous body fluids[ICD9: V15.85] Chelsie Yoo MD, [facility] CPT-4: 14476 08/15/2011 58438 EST. PATIENT, LEVEL IV Diagnosis: MARGE (generalized anxiety disorder)[ICD9: 300.02] Diagnosis: Obsessive compulsive disorder[ICD9: 300.3] Chelsie Yoo MD, [facility] CPT-4: 86000 05/18/2011 [id number] EST. PATIENT, LEVEL II Diagnosis: Contact dermatitis and eczema due to plant[ICD9: 692.6] Jeimy Yoo MD, [facility] CPT-4: 43105 03/01/2011 Plan of Care Planned Activity Notes Codes Status Date Visit Plan: Mastitis - left - will send RX if no improvement will order diagnostic mammogram with US - The patient was instructed to use the antibiotic as per RX. The patient is to call for any change in symptoms, increase in size of the lesion, increase in pain, worsening redness, warmth, discharge. 02/21/2018 Patient Education: Patient Medication Summary Completed [...] forceps today 06/14/2017 Appointment: Chelsie Yoo WPtel: [address] [place], [place] [phone] (15 min) Moderate 06/14/2017 Patient Education: Patient [...] check cbc 05/03/2017 Appointment: Chelsie Yoo WPtel: [phone] (15 min) Moderate 05/03/2017 Patient Education: Patient [...] renal functioning. 12/17/2015 Appointment: Chelsie Yoo WPtel: [facility] [address] (15 min) Moderate 12/17/2015 Patient Education: Patient Medication Summary Completed 12/17/2015 Visit Plan: Strep throat - pt give rx for antibiotic - sent to pharmacy - pt had swab of throat today - will culture the swab. 12/10/2014 Appointment: (10 min) Simple 12/10/2014 Patient Education: Patient Medication Summary Completed 12/10/2014 Patient Education: [facility] - Saving AutoInj - 18-64 - Dynamic Portal ID Completed 12/10/2014 Care Plan: C VICKY DUNHAM Pending 12/10/2014 Visit Plan: Well Adult - [...] renal functioning. 11/17/2014 Appointment: Chelsie Yoo WPtel: [facility] Physical 11/17/2014 Patient Education: Patient Medication Summary [...] s pharmacy. 07/01/2013 Appointment: Jeimy Sanchez WPtel: [phone] [facility] 07/01/2013 Patient Education: Patient Medication Summary Completed [...] then stop. 07/18/2012 Appointment: Chelsie Yoo WPtel: [facility]66[facility] Established Patient Preventative visit 07/18/2012 Patient Education: Patient Medication Summary Completed 07/18/2012 Visit Plan: Contact dermatitis- Discussed natural and expected course of this diagnosis and need to alert me if symtpoms do not follow expected course, or if any worse. RX sent to patient's pharmacy. Kenalog injection today in the office. 11/28/2011 Appointment: Jeimy Sanchez WPtel: [phone] [facility] 11/28/2011 Patient Education: Patient Medication Summary Completed [...] months preivously) 08/15/2011 Appointment: Chelsie Yoo WPtel: [phone] [phone] Other 08/15/2011 Patient Education: Patient Medication Summary [...] with OCD. 05/18/2011 Appointment: Chelsie Yoo WPtel: [phone] [phone] Other 05/18/2011 Patient Education: Patient Medication Summary Completed 05/18/2011 Patient Education: Anxiety Completed 05/18/2011 Patient Education: Depression Completed 05/18/2011 Visit Plan: Contact dermatitis-Discussed natural and expected course of this diagnosis and need to alert me if symtpoms do not follow expected course, or if any worse. 03/01/2011 [facility]ment[phone] [place] [facility] 03/01/2011 Patient Education: Patient Medication [...] who have had issues with OCD. . OCD AND Anxiety - the patient [...]
--- OUTSIDE RECORDS SUMMARY | 2018-09-23 11:09 | XMS REPORT | CCD ---
Author Author [facility] Address [address] [place] [address] Phone Care Team Providers Care Configuration Management Consultant Name Role Phone PP Unavailable CCM Unavailable Summary Purpose Interface Exchange Insurance Providers Payer name Policy type / Coverage type Covered democrat ID Effective Begin Date Effective End Date [facility] [id number] 2015 Unknown Family history Side Diagnosis Age At Onset No Family Disease Entered N/A Grandfather Diagnosis Age At Onset Hypertension Unknown Father Diagnosis Age At Onset Hypertension Unknown Mother Diagnosis Age At Onset Anemia Unknown Social History Social History Element Codes Description Effective Dates Number of children Unknown 2 05/03/2017 Employment Unknown 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 Unknown Has never used illegal drugs 03/06/2011 Marital status Unknown 03/01/[address]: 828017913 Never smoker 03/01/[address]: 001585901 Never drinks alcohol 03/01/2011 Allergies, Adverse Reactions, Alerts Allergies, Adverse Reactions, Alerts data not found Past Medical History Illness Codes Condition Status Onset Date Resolved Date Generalized anxiety disorder ICD-9: 300.02 ICD-10: F41.1 [...] Problems Condition Codes Effective Dates Condition Status Generalized anxiety disorder ICD-9: 300.02 ICD-10: F41.1 [...] Fill Instructions fluvoxamine 100 mg tablet RxNorm: 631917 1.5 Tablet(s) PO daily 100mg in morning and 50mg at night 08/21/2017 08/15/2018 Active fluvoxamine 100 mg tablet RxNorm: 932275 1.5 Tablet(s) PO daily 100mg in morning and 50mg at night 05/03/2017 08/20/2017 Inactive Luvox CR 100 mg capsule,extended release RxNorm: 454821 1 Capsule(s) PO daily 02/06/2017 02/06/2017 Inactive TAKE 1 CAPSULE BY MOUTH DAILY;Patient requests 90 day supply Luvox CR 100 mg capsule,extended release RxNorm: 604085 1 Capsule(s) PO daily 07/31/2015 04/25/2016 Inactive TAKE 1 CAPSULE BY MOUTH DAILY;Patient requests 90 day supply nystatin 100,000 unit/mL oral suspension RxNorm: 896475 5 Milliliter(s) SWISH AND SWALLOW PO QID x7 days Thrush 12/18/2014 12/24/2014 Inactive Levaquin 500 mg tablet RxNorm: 612905 1 Tablet(s) PO daily 05/201512/20/2014 Inactive prednisone 20 mg tablet RxNorm: 338872 1 Tablet(s) PO BID 12/1212/16/2014 Inactive Levaquin 500 mg tablet RxNorm: 805092 1 Tablet(s) PO daily 11/201412/17/2014 Inactive Levaquin 500 mg tablet RxNorm: 040442 1 Tablet(s) PO daily 11/201412/11/2014 Inactive prednisone 20 mg tablet RxNorm: 400106 1 Tablet(s) PO BID 12/1212/11/2014 Inactive Zithromax Z-Tobin 250 mg tablet RxNorm: 955830 1 Tablet(s) PO daily 12/10/2014 12/14/2014 Inactive Zpack as directed Luvox CR 100 mg capsule,extended release RxNorm: 244243 1 Capsule(s) PO daily 06/24/2014 07/30/2015 Inactive TAKE 1 CAPSULE BY MOUTH DAILY;Patient requests 90 day supply Keflex 500 mg capsule RxNorm: 467352 1 Capsule(s) PO TID 201312/01/2013 Inactive Flonase 50 mcg/actuation nasal spray,suspension RxNorm: 570487 2 [place]orton NASAL daily SPRAY 2 SPRAYS IN EACH NOSTRIL DAILY 11/04/2013 05/02/2014 Inactive Flonase 50 mcg/actuation nasal spray,suspension RxNorm: 874386 H[place] NASAL SPRAY 2 SPRAYS IN EACH NOSTRIL DAILY 11/04/2013 11/03/2013 Inactive Flonase 50 mcg/actuation nasal spray,suspension RxNorm: 782302 2 [place] NASAL daily 07/01/2013 07/07/2013 Inactive Luvox 50 mg tablet RxNorm: 380580 1 Tablet(s) PO BID 50mg bid x 1week, then 50mg in am 25mg at hs x 1wk then 25mg bid, x 1 week then 25mg daily x 1wk then stop 07/18/2012 08/16/2012 Inactive fluticasone 50 mcg/actuation Nasal H[place], Susp RxNorm: 4271487 2 Horton NASAL BID 03/21/2012 04/14/2013 Inactive Kenalog 40 mg/mL Susp for Injection RxNorm: 8466151 1 Milliliter(s) Inj 11/28/2011 11/28/2011 Inactive Ativan 0.5 mg Tab RxNorm: 221338 1 Tablet(s) PO TID PRN No Stop Date Active q am and q pm and prn anxiety attack Luvox CR 100 mg 24 hr Cap RxNorm: 030190 Capsule(s) PO 201106/23/2014 Inactive TAKE 1 CAPSULE BY MOUTH DAILY;Patient requests 90 day supply Luvox CR 100 mg 24 hr Cap RxNorm: 131480 1 Capsule(s) PO daily 08/15/2011 08/16/2011 Inactive Lexapro 10 mg Tab RxNorm: 591393 1 Tablet(s) PO daily 201007/15/2011 Inactive prednisone 5 mg Tabs in a Dose Pack RxNorm: 284538 Tablet(s) PO 03/03/2011 07/15/2011 Inactive triamcinolone acetonide (PF) 40 mg/mL Intraocular Susp RxNorm: 9413232 1 Milliliter(s) IM 03/01/2011 07/15/2011 Inactive + Iron oral RxNorm: oral No Start Date Active nystatin 100,000 unit/mL oral suspension RxNorm: 818201 Unit(s) PO No Start Date 12/17/2014 Inactive Biotene oral RxNorm: oral No Start Date 02/2016 Inactive prednisone 5 mg Tabs in a Dose Pack RxNorm: 812478 Tablet(s) PO No Start Date 03/02/2011 Inactive Zithromax Z-Tobin 250 mg tablet RxNorm: 313624 Tablet(s) PO No Start Date 11/03/2013 Inactive fluticasone 50 mcg/actuation Nasal [place], Susp RxNorm: 7396815 2 Horton NASAL BID No Start Date 03/20/2012 Inactive Celexa 20 mg Tab RxNorm: 391885 1 Tablet(s) PO daily No Start Date 07/18/2012 Inactive Abilify 2 mg Tab RxNorm: 455919 1 Tablet(s) PO daily No Start Date 07/18/2012 Inactive Deplin Oral RxNorm: Oral No Start Date 03/2013 Inactive Lexapro 10 mg Tab RxNorm: 573529 Tablet(s) PO daily No Start Date 05/17/2011 Inactive prednisone 10 mg Tab RxNorm: 056445 Tablet(s) PO UD prednisone 10 mg - 4 x 2 days , then 3 x2 days, then 2x days, then 1 x 2 days, then stop No Start Date 07/18/2012 Inactive promethazine 25 mg tablet RxNorm: 613934 1 Tablet(s) PO Q6 PRN No Start Date 12/16/2015 Inactive Ativan 0.5 mg Tab RxNorm: 214194 1 Tablet(s) PO TID PRN No Start Date 09/06/2011 Inactive q am and q pm and prn anxiety attack Medication Administered Medication Codes Instructions Start Date Status Kenalog 40 mg/mL Susp for Injection RxNorm: 4735780 1Milliliter 11/28/2011 No longer Active Immunizations Vaccine Codes Date Status Influenza CVX: 141 04/20/2017 completed Assessments Condition Codes Effective Dates Superficial foreign body of right thumb, initial [...] Reason For Visit Effective Dates Notes depression 06/14/2017 well woman exam (18-39 years) [...] Item Item Code Result Date Comp Metabolic Enf199 NA 140 mEq/L 05/03/2017 Comp Metabolic Flv956 K 4.1 mEq/L 05/03/2017 Comp Metabolic Usd285 CL 102 mEq/L 05/03/2017 Comp Metabolic Ukv107 CO2 29.0 mEq/L 05/03/2017 Comp Metabolic Wsd843 ANION GAP 13 05/03/2017 Comp Metabolic Sah436 GLUCOSE 69 mg/dL 05/03/2017 Comp Metabolic Dsl031 Creat 0.9 mg/dL 05/03/2017 Comp Metabolic Bij225 eGFR 81 ml/min/1.73m2 05/03/2017 Comp Metabolic Ohb285 BUN 9 mg/dL 05/03/2017 Comp Metabolic Fbe906 B/C Ratio 10.5 Ratio 05/03/2017 Comp Metabolic Amx847 CALCIUM 9.7 mg/dL 05/03/2017 Comp Metabolic Uoo652 ALK PHOS 91 U/L 05/03/2017 Comp Metabolic Vqo473 AST(SGOT) 16 U/L 05/03/2017 Comp Metabolic Sqh527 ALT(SGPT) 16 U/L 05/03/2017 Comp Metabolic Wqj374 BILI T 0.5 mg/dL 05/03/2017 Comp Metabolic Qkn000 ALBUMIN 4.6 g/dL 05/03/2017 Comp Metabolic Gyj002 TPRO 7.1 g/dL 05/03/2017 Comp Metabolic Yzr469 GLOB 2.5 g/dL 05/03/2017 Comp Metabolic Fbq342 A/G Ratio 1.8 Ratio 05/03/2017 Comp Metabolic Mkc739 Osmo 276 mOsmo 05/03/2017 Magnesium Ord90 Mag [...] 29.9 pg 05/03/2017 Cbc With Differential Ord2 [place]% 6.7 % 05/03/2017 Cbc With Differential Ord2 [...] 1.71 K/ul 05/03/2017 Cbc With Differential Ord2 [place] ABS# 0.4 K/ul 05/03/2017 Cbc With Differential Ord2 Eos ABS# 0.1 K/ul 05/03/2017 Cbc With Differential Ord2 Baso ABS# 0.0 K/ul 05/03/2017 Review of Systems System Result Effective Dates Constitutional No recent illness 2016 Constitutional No [...] Effective Dates Notes Full Exam - General 1994 Constitutional general [...] distress 07/01/2013 None Full Exam - General 1994 Constitutional general appearance Overall: well developed 07/18/2012 None Full Exam - General 1994 Constitutional general appearance Overall: in no acute distress 07/18/2012 None Full Exam - General 1994 Constitutional general appearance Overall: well nourished 07/18/2012 None Full Exam - General 1994 [...] happy 07/18/2012 None Full Exam - General 1995 Integument inspection of skin Rash/Lesions: papule 11/28/2011 [...] retractions 05/18/2011 None Full Exam - General 1995 Respiratory [...] A SC (STREP A ASSAY W/OPTIC) CPT-4: 96197 12/10/2014 TRIAMCINOLONE ACET INJ NOS CPT-4: J3301 11/28/2011 THER/PROPH/DIAG INJ SC/IM CPT-4: 11419 11/28/2011 ROUTINE VENIPUNCTURE CPT-4: 20043 08/15/2011 TRIAMCINOLONE ACET INJ NOS CPT-4: J3301 03/01/2011 THER/PROPH/DIAG INJ SC/IM CPT-4: 65654 03/01/2011 Vital Signs Date Vital 06/14/2017 Blood Pressure 1: 116/80 Code : 8480-6 BMI: 21.6 Code : 59952-7 Heart Rate 1 : 61 bpm Height: 5'8" SpO2: 98% Weight: 142 lbs 05/03/2017 Blood Pressure 1: 110/80 Code : 8480-6 BMI: 22.2 Code : 32410-7 Heart Rate 1 : 79 bpm Height: 5'8" SpO2: 98% Weight: 146 lbs 12/17/2015 Blood Pressure 1: 108/78 Code : 8480-6 BMI: 22.0 Code : 93594-2 Heart Rate 1 : 66 bpm Height: 5'8" SpO2: 98% Weight: 145 lbs 12/10/2014 Temperature: 36.9 (C) / 98.5 (F) 11/17/2014 Blood Pressure 1: 110/64 Code : 8480-6 BMI: 21.4 Code : 11249-7 Heart Rate 1 : 68 bpm Height: 5'8" Weight: 141 lbs 11/25/2013 Blood Pressure 1: 102/78 Code : 8480-6 Heart Rate 1: 104 bpm Temperature: 37.6 (C) / 99.7 (F) Weight: 132 lbs 07/01/2013 Blood Pressure 1: 122/76 Code : 8480-6 BMI: 22.0 Code : 68974-5 Heart Rate 1 : 100 bpm Height: 5'8" Temperature: 36.8 (C) / 98.3 (F) Weight: 145 lbs 07/18/2012 Blood Pressure 1: 112/68 Code : 8480-6 BMI: 21.7 Code : 09744-8 Heart Rate 1 : 80 bpm Height: 5'8" Weight: 143 lbs 11/28/2011 Blood Pressure 1: 98/62 Code : 8480-6 BMI: 21.3 Code : 48854-6 Heart Rate 1 : 90 bpm Height: 5'8" Respiratory Rate: 16 bpm Weight: 140 lbs 08/15/2011 Blood Pressure 1: 108/74 Code : 8480-6 BMI: 19.8 Code : 95264-1 Heart Rate 1 : 78 bpm Height: 5'8" Respiratory Rate: 16 bpm Weight: 130 lbs 05/18/2011 Blood Pressure 1: 104/80 Code : 8480-6 BMI: 21.0 Code : 82966-9 Heart Rate 1 : 92 bpm Height: 5'8" Respiratory Rate: 12 bpm Weight: 138 lbs 03/01/2011 Blood Pressure 1: 120/72 Code : 8480-6 BMI: 21.6 Code : 65920-0 Heart Rate 1 : 68 bpm Height: 5'8" Weight: 142 lbs Functional Status No Functional Status data History of Present Illness Symptom Name Status Result Effective Date Notes depression Onset and Resolution ongoing 06/14/2017 None [...] Directive data Encounters Encounter Performer Location Codes ([id number]) 78970 EST. PATIENT, LEVEL III Diagnosis: Generalized anxiety disorder[ICD10: F41.1] Diagnosis: Major depressive disorder, recurrent, mild[ICD10: F33.0] Diagnosis: Superficial foreign body of right thumb, initial encounter[ICD10: S60.351A] Chelsie Yoo MD [facility] CPT-4: 88463 12/2016 ([id number]) PREV VISIT EST AGE 18-39 Diagnosis: Encounter for general adult medical examination without abnormal findings[ICD10: Z00.00] Chelsie Yoo MD [facility] CPT-4: 72907 05/03/2017 ([id number]) PREV VISIT EST AGE 18-39 Diagnosis: Encounter for gynecological examination (general) (routine) without abnormal findings[ICD10: Z01.419] Chelsie Yoo MD, [facility] CPT-4: 81747 12/17/2015 ([id number]) 02109 EST. PATIENT, LEVEL III Diagnosis: STREP SORE THROAT[ICD9: 034.0] Esha Yoo MD [facility] CPT-4 : 13960 12/10/2014 ([id number]) PREV VISIT EST AGE 18-39 Diagnosis: Routine medical exam[ICD9: V70.0] Chelsie Yoo MD [facility] CPT-4: 57004 11/17/2014 ([id number]) 94415 EST. PATIENT, LEVEL III Diagnosis: Mastitis[ICD9: 611.0] Chelsie Yoo MD [facility] CPT-4: 93588 11/25/2013 ([id number]) 38112 EST. PATIENT, LEVEL III Diagnosis: COUGH[ICD9: 786.2] Diagnosis: ACUTE URI[ICD9: 465.9] Jeimy Yoo MD, [facility] CPT-4: 46403 07/01/2013 ([id number]) 76903 EST. PATIENT, LEVEL III Diagnosis: OBSESSIVE, COMPULSIVE DISEASE[ICD9: 300.3] Diagnosis: ANXIETY STATE[ICD9: 300.00] Chelsie Yoo MD, [facility] CPT- 4: 61574 07/18/2012 ([id number]) 96265 EST. PATIENT, LEVEL III Diagnosis: DERMATITIS DUE TO PLANT[ICD9: 692.6] Diagnosis: Pruritic condition[ICD9: 698.9] Jeimy Yoo MD, [facility] CPT-4: 36435 11/28/2011 ([id number]) 96719 EST. PATIENT, LEVEL III Diagnosis: OBSESSIVE, COMPULSIVE DISEASE[ICD9: 300.3] Diagnosis: GENERALIZED ANXIETY DISEASE[ICD9: 300.02] Diagnosis: Contact with potentially hazardous body fluids[ICD9: V15.85] [facility] CPT-4: 18637 08/15/2011 17001 EST. PATIENT, LEVEL IV Diagnosis: MARGE (generalized anxiety disorder)[ICD9: 300.02] Diagnosis: Obsessive compulsive disorder[ICD9: 300.3] [facility] CPT-4: 31745 05/18/2011 78763 EST. PATIENT, LEVEL II Diagnosis: Contact dermatitis and eczema due to plant[ICD9: 692.6] [facility] CPT-4: 75177 03/01/2011 Plan of Care Planned Activity Notes Codes Status Date Visit Plan: Chronic Depression and anxiety - the pt has symptoms of chronic anxiety and depression that have been fairly well controlled since the last office visit. The pt has expected periods of exacerbation with abatement of the symptoms with change in situational exposure. No change in current medications. Metal Splinter in thumb - removed with forceps today 06/14/2017 Appointment: Chelsie Yoo WPtel: [address] [place], [place] [id number] (15 min) Moderate 06/14/2017 Patient Education: Patient [...] check cbc 05/03/2017 Appointment: Chelsie Yoo WPtel: [address] [place], [place] [phone] (15 min) Moderate 05/03/2017 Patient Education: Patient [...] renal functioning. 12/17/2015 Appointment: Chelsie Yoo WPtel: [phone] [facility] (15 min) Moderate 12/17/2015 Patient Education: Patient Medication Summary Completed 12/17/2015 Visit Plan: Strep throat - pt give rx for antibiotic - sent to pharmacy - pt had swab of throat today - will culture the swab. 12/10/2014 Appointment: (10 min) Simple 12/10/2014 Patient Education: Patient Medication Summary Completed 12/10/2014 Patient Education: [facility] - Saving AutoInj - 18-64 - Dynamic [...] renal functioning. 11/17/2014 Appointment: Chelsie Yoo WPtel: [facility] Physical 11/17/2014 Patient Education: Patient Medication Summary [...] s pharmacy. 07/01/2013 Appointment: Jeimy Sanchez WPtel: [phone] [phone] Sick 07/01/2013 Patient Education: Patient Medication Summary [...] then stop. 07/18/2012 Appointment: Chelsie Yoo WPtel: [facility] Established Patient Preventative visit 07/18/2012 Patient Education: Patient Medication Summary Completed 07/18/2012 Visit Plan: Contact dermatitis- Discussed natural and expected course of this diagnosis and need to alert me if symtpoms do not follow expected course, or if any worse. RX sent to patient's pharmacy. Kenalog injection today in the office. 11/28/2011 Appointment: Jeimy Sanchez WPtel: [phone] [place] [phone] [place] [address] Other 11/28/2011 Patient Education: Patient Medication Summary [...] preivously) 08/15/2011 Appointment: Chelsie Yoo WPtel: [phone] Other 08/15/2011 Patient Education: Patient Medication Summary [...] with OCD. 05/18/2011 Appointment: [facility] [phone] [facility] [place] Other 05/18/2011 Patient Education: Patient Medication Summary Completed 05/18/2011 Patient Education: Anxiety Completed 05/18/2011 Patient Education: Depression Completed 05/18/2011 Visit Plan: Contact dermatitis-Discussed natural and expected course of this diagnosis and need to alert me if symtpoms do not follow expected course, or if any worse. 03/01/2011 [facility]ment: [facility] [phone] [phone] [place] Injection 03/01/2011 Patient Education: Patient [...]
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
[2018-09-23 13:41] LABS: BASOPHILS % (AUTO) 0 % (0-10); EOSINOPHILS % (AUTO) 0 % (0-10); HEMATOCRIT 41 % (35-52); HEMOGLOBIN 14.3 G/DL (11.5-16.0); LYMPHOCYTES # (AUTO) 0.9 X 10^3 (1.0-4.0); LYMPHOCYTES % (AUTO) 7 % (12-44); MEAN CORPUSCULAR HEMOGLOBIN 30 PG (25-34); MEAN CORPUSCULAR HGB CONC 35 G/DL (32-36); MEAN CORPUSCULAR VOLUME 86 FL (80-99); MEAN PLATELET VOLUME 10.2 FL (7.4-10.4); MONOCYTES # (AUTO) 0.6 X 10^3 (0.0-1.0); MONOCYTES % (AUTO) 4 % (0-12); NEUTROPHILS # (AUTO) 11.1 X 10^3 (1.8-7.8); NEUTROPHILS % (AUTO) 88 % (42-75); PLATELET COUNT 218 10^3/uL (130-400); RED CELL DISTRIBUTION WIDTH 13.2 % (10.0-14.5); WHITE BLOOD COUNT 12.6 10^3/uL (4.3-11.0)
[2018-09-23 13:55] LABS: INR 1.1 (0.8-1.4); PROTHROMBIN TIME PATIENT 14.4 SEC (12.2-14.7)
[2018-09-23 14:01] LABS: ALANINE AMINOTRANSFERASE 14 U/L (0-55); ALBUMIN 4.8 GM/DL (3.2-4.5); ALKALINE PHOSPHATASE 66 U/L (40-136); BILIRUBIN,TOTAL 0.5 MG/DL (0.1-1.0); BUN/CREATININE RATIO 9; CALCIUM 9.9 MG/DL (8.5-10.1); CARBON DIOXIDE 24 MMOL/L (21-32); CHLORIDE 100 MMOL/L (98-107); GFR ESTIMATED > 60; GLUCOSE 103 MG/DL (70-105); POTASSIUM 3.3 MMOL/L (3.6-5.0); SODIUM 137 MMOL/L (135-145); TOTAL PROTEIN 8.4 GM/DL (6.4-8.2)
[2018-09-23] MEDS ORDERED: L.E.T. SYRINGE 5 ML TOP ONE (14:15)
[2018-09-23] MEDS ORDERED: KETOROLAC 30 MG/ML VIAL IVP ONE (14:15)
[2018-09-23 14:20] LABS: BAND NEUTROPHILS 0 %; BASOPHILS % (MANUAL) 0 %; EOSINOPHILS % (MANUAL) 0 %; LYMPHOCYTES % (MANUAL) 12 %; MONOCYTES % (MANUAL) 5 %; NEUTROPHILS % (MANUAL) 83 %; RBC MORPH NORMAL
--- NOTE | 2018-09-23 15:28 | ED Integumentary General ---
General Chief Complaint: Facial Problems Stated Complaint: L SIDE JAW/CHEEK ABSCESS Nursing Triage Note: pt sent over from [facility] with complaint of left jaw swelling. pt states she was seen on monday and given rocephin and bactrim. pt states she had dental work which she was put on clindamycin for. states swelling started the day after finishing the clindamycin. Source: patient Exam Limitations: no limitations Allergies and Home Medications Allergies Coded Allergies: oxacillin sodium (Verified Allergy, Mild, HIVES, 02/14/17) Home Medications Docusate Sodium 100 Mg Capsule, 100 MG PO BID Prescribed by: FREDA ELISE on 02/15/17 1258 Ferrous Sulfate 325 Mg Capsule.er, 325 MG PO DAILY, (Reported) Fluvoxamine Maleate 100 Mg Tablet, 100 MG PO DAILY, (Reported) Ibuprofen 600 Mg Tablet, 600 MG PO Q6H Prescribed by: FREDA ELISE on 02/15/17 1258 Magnesium Oxide 400 Mg Tablet, 400 MG PO BID Prescribed by: FREDA ELISE on 01/12/17 1507 [id number]/Iron Fumarate/FA/Dss 1 Each Tablet, 1 EACH PO DAILY, (Reported) Past Evxgyhn-Gjoexg-Ntxclp Hx Patient Social History Alcohol Use: Denies Use Recreational Drug Use: No Smoking Status: Never a Smoker Recent Foreign Travel: No Contact w/Someone Who Travel: No Recent Infectious Disease Expo: No Recent Hopitalizations: No Immunizations Up To Date Tetanus Booster (TDap): More than 5yrs PED Vaccines UTD: No Seasonal Allergies Seasonal Allergies: No Past Medical History Surgeries: No Respiratory: No Cardiac: No Neurological: No Reproductive Disorders: No Genitourinary: No Gastrointestinal: No Musculoskeletal: No Endocrine: No HEENT: No Cancer: No Psychosocial: Yes (ocd ) Depression Integumentary: No Blood Disorders: No Adverse Reaction/Blood Tranf: No Physical Exam Vital Signs Vital Signs - First Documented 09/23/18 11:59 Temp 98.0 Pulse 96 Resp 20 B/P (MAP) 106/73 (84) Pulse Ox 100 O2 Delivery Room Air Capillary Refill : Less Than 3 Seconds Progress/Results/Core Measures Results/Orders Lab Results Laboratory Tests Test 09/23/18 13:25 Range/Units White Blood Count 12.6 H 4.3-11.0 10^3/uL Red Blood Count 4.82 4.35-5.85 10^6/uL Hemoglobin 14.3 11.5-16.0 G/DL Hematocrit 41 35-52 % Mean Corpuscular Volume 86 80-99 FL Mean Corpuscular Hemoglobin 30 25-34 PG Mean Corpuscular Hemoglobin Concent 35 32-36 G/DL Red Cell Distribution Width 13.2 10.0-14.5 % Platelet Count 218 130-400 10^3/uL Mean Platelet Volume 10.2 7.4-10.4 FL Neutrophils (%) (Auto) 88 H 42-75 % Lymphocytes (%) (Auto) 7 L 12-44 % Monocytes (%) (Auto) 4 0-12 % Eosinophils (%) (Auto) 0 0-10 % Basophils (%) (Auto) 0 0-10 % Neutrophils # (Auto) 11.1 H 1.8-7.8 X 10^3 Lymphocytes # (Auto) 0.9 L 1.0-4.0 X 10^3 Monocytes # (Auto) 0.6 0.0-1.0 X 10^3 Eosinophils # (Auto) 0.0 0.0-0.3 10^3/uL Basophils # (Auto) 0.0 0.0-0.1 10^3/uL Neutrophils % (Manual) 83 % Lymphocytes % (Manual) 12 % Monocytes % (Manual) 5 % Eosinophils % (Manual) 0 % Basophils % (Manual) 0 % Band Neutrophils 0 % Blood Morphology Comment NORMAL Prothrombin Time 14.4 12.2-14.7 SEC INR Comment 1.1 0.8-1.4 Activated Partial Thromboplast Time 31 24-35 SEC Sodium Level 137 135-145 MMOL/L Potassium Level 3.3 L 3.6-5.0 MMOL/L Chloride Level 100 98-107 MMOL/L Carbon Dioxide Level 24 21-32 MMOL/L Anion Gap 13 5-14 MMOL/L Blood Urea Nitrogen 9 7-18 MG/DL Creatinine 1.00 0.60-1.30 MG/DL Estimat Glomerular Filtration Rate > 60 BUN/Creatinine Ratio 9 Glucose Level 103 70-105 MG/DL Calcium Level 9.9 8.5-10.1 MG/DL Corrected Calcium 8.5-10.1 MG/DL Total Bilirubin 0.5 0.1-1.0 MG/DL Aspartate Amino Transf (AST/SGOT) 23 5-34 U/L Alanine Aminotransferase (ALT/SGPT) 14 0-55 U/L Alkaline Phosphatase 66 40-136 U/L Total Protein 8.4 H 6.4-8.2 GM/DL Albumin 4.8 H 3.2-4.5 GM/DL My Orders Orders - AYALA PRIETO MD Let Solution (Let Solution) (09/23/18 14:15) Ketorolac Injection (Toradol Injection) (09/23/18 14:15) Clindamycin 600 Mg/50 Ml Ivpb (Cleocin P (09/23/18 15:30) Medications Given in ED Current Medications Medications Dose Ordered Sig/Ish Route Start Time Stop Time Status Last Admin Dose Admin Ketorolac Tromethamine 30 mg ONCE ONCE IVP 09/23/18 14:15 09/23/18 14:16 DC 09/23/18 14:30 30 MG Tetracaine/ Epinephrine/ Lidocaine 1 ea ONCE ONCE TOP 09/23/18 14:15 09/23/18 14:16 DC 09/23/18 14:30 1 EA Vital Signs/I&O 09/23/18 11:59 Temp 98.0 Pulse 96 Resp 20 B/P (MAP) 106/73 (84) Pulse Ox 100 O2 Delivery Room Air Blood Pressure Mean: 84 Departure Impression Primary Impression: Cellulitis and abscess of face Additional Impression: Encounter for incision and drainage procedure Disposition: 01 HOME, SELF-CARE Condition: Improved Departure-Patient Inst. Decision time for Depature: 15:15 Referrals: BRENT CARPENTER MD (PCP/Family) Primary Care Physician Patient Instructions: Abscess Incision and Drainage Add. Discharge Instructions: Complete your antibiotics as prescribed. Apply warm moist compresses to the abscess 3 or 4 times a daily for the next couple of days. You may take ibuprofen up to 600 mg every 6 hours as needed. Add Tylenol ( acetaminophen) up to 1000 mg every 6 hours as needed for additional pain relief. Return to care if symptoms are worsening. Fill the additional 5 days of Bactrim if needed if signs of infection have not resolved completely by the time you complete your current course of antibiotics. All discharge instructions reviewed with patient and/or family. Voiced understanding. Scripts Sulfamethoxazole/Trimethoprim (Bactrim Ds Tablet) 1 Each Tablet 1 EACH PO BID, #10 TAB Prov: AYALA PRIETO MD 09/23/18 AYALA PRIETO MD Sep 23, 2018 15:27
[2018-09-23] MEDS ORDERED: CLINDAMYCIN 600 MG/50 ML IVPB 50 ML IV ONE (15:30)
[2018-09-23] MEDS ORDERED: SULF1TAB35 PO (15:35)
[2018-09-23 16:20] VITALS: BP 101/63
== END 2018-09-23 16:20 | disposition home or self-care (01) ==
LOC: EDUNIT# 10:58 → ER 10:59
DX: L03.211 Cellulitis of face (principal); F32.9 Major depressive disorder, single episode, unspecified; F42.9 Obsessive-compulsive disorder, unspecified; Z88.8 Allergy status to other drugs, medicaments and biological substances
CPT/HCPCS: 10060; 36415; 80053; 85007; 85027; 85610; 85730; 87070; 87077; 87186; 87205

== ENCOUNTER → 2019-06-11 | Outpatient (CLI) | payer OTHER ==
[~2019-06-11] MED LIST changes: +SULF1TAB35 PO
[2019-06-11 09:46] LABS: HEMATOCRIT 40 % (35-52); HEMOGLOBIN 13.3 G/DL (11.5-16.0); LYMPHOCYTES % (AUTO) 21 % (12-44); MEAN CORPUSCULAR HEMOGLOBIN 29 PG (25-34); MEAN CORPUSCULAR HGB CONC 34 G/DL (32-36); MEAN CORPUSCULAR VOLUME 85 FL (80-99); MEAN PLATELET VOLUME 10.1 FL (7.4-10.4); MONOCYTES % (AUTO) 5 % (0-12); NEUTROPHILS % (AUTO) 71 % (42-75); PLATELET COUNT 223 10^3/uL (130-400); RED CELL DISTRIBUTION WIDTH 13.4 % (10.0-14.5); WHITE BLOOD COUNT 5.3 10^3/uL (4.3-11.0)
[2019-06-11 09:47] LABS: BASOPHILS % (AUTO) 1 % (0-10); EOSINOPHILS # (AUTO) 0.1 10^3/uL (0.0-0.3); EOSINOPHILS % (AUTO) 2 % (0-10); LYMPHOCYTES # (AUTO) 1.1 X 10^3 (1.0-4.0); MONOCYTES # (AUTO) 0.2 X 10^3 (0.0-1.0); NEUTROPHILS # (AUTO) 3.8 X 10^3 (1.8-7.8)
[2019-06-11 10:27] LABS: ALANINE AMINOTRANSFERASE 18 U/L (0-55); ALBUMIN 4.5 GM/DL (3.2-4.5); ALKALINE PHOSPHATASE 80 U/L (40-136); BILIRUBIN,TOTAL 0.4 MG/DL (0.1-1.0); BUN/CREATININE RATIO 13; CALCIUM 9.3 MG/DL (8.5-10.1); CARBON DIOXIDE 27 MMOL/L (21-32); CHLORIDE 105 MMOL/L (98-107); CREATININE SERUM 0.88 MG/DL (0.60-1.30); GFR ESTIMATED > 60; GLUCOSE 90 MG/DL (70-105); POTASSIUM 4.3 MMOL/L (3.6-5.0); SODIUM 140 MMOL/L (135-145); TOTAL PROTEIN 7.6 GM/DL (6.4-8.2)
== END ==
LOC: LAB 09:25
PROVIDERS: ATTEND Nurse Practitioner Family
DX: R53.83 Other fatigue (principal); R73.9 Hyperglycemia, unspecified
CPT/HCPCS: 36415; 80053; 83970; 84443; 85025

== ENCOUNTER → 2019-06-19 | Outpatient (CLI) | payer OTHER | LOC: LAB 08:47 | PROVIDERS: ATTEND Nurse Practitioner Family | DX: E21.2 Other hyperparathyroidism (principal) | CPT/HCPCS: 36415; 82306 ==

== ENCOUNTER → 2019-08-13 | Outpatient (CLI) | payer OTHER ==
[~2019-08-13] MED LIST changes: -MAGN400T6 PO; +MAGN400T8 PO
== END ==
LOC: LAB 10:48
PROVIDERS: ATTEND Surgery Surgical Oncology
DX: E34.9 Endocrine disorder, unspecified (principal)
CPT/HCPCS: 36415; 82310

== ENCOUNTER → 2019-12-05 | Outpatient (CLI) | payer OTHER ==
[2019-12-05 08:36] LABS: BASOPHILS % (AUTO) 0 % (0-10); EOSINOPHILS # (AUTO) 0.1 10^3/uL (0.0-0.3); EOSINOPHILS % (AUTO) 2 % (0-10); HEMATOCRIT 42 % (35-52); HEMOGLOBIN 14.1 G/DL (11.5-16.0); LYMPHOCYTES # (AUTO) 1.5 X 10^3 (1.0-4.0); LYMPHOCYTES % (AUTO) 34 % (12-44); MEAN CORPUSCULAR HEMOGLOBIN 28 PG (25-34); MEAN CORPUSCULAR HGB CONC 34 G/DL (32-36); MEAN CORPUSCULAR VOLUME 83 FL (80-99); MEAN PLATELET VOLUME 10.1 FL (7.4-10.4); MONOCYTES # (AUTO) 0.3 X 10^3 (0.0-1.0); MONOCYTES % (AUTO) 6 % (0-12); NEUTROPHILS # (AUTO) 2.6 X 10^3 (1.8-7.8); NEUTROPHILS % (AUTO) 58 % (42-75); PLATELET COUNT 239 10^3/uL (130-400); RED CELL DISTRIBUTION WIDTH 14.5 % (10.0-14.5); WHITE BLOOD COUNT 4.5 10^3/uL (4.3-11.0)
[2019-12-05 08:53] LABS: ALBUMIN 4.5 GM/DL (3.2-4.5)
[2019-12-05 08:54] LABS: POTASSIUM 4.2 MMOL/L (3.6-5.0)
[2019-12-05 08:55] LABS: CALCIUM 9.7 MG/DL (8.5-10.1)
[2019-12-05 08:56] LABS: TOTAL PROTEIN 7.8 GM/DL (6.4-8.2)
[2019-12-05 08:58] LABS: BILIRUBIN,TOTAL 0.4 MG/DL (0.1-1.0)
[2019-12-05 09:00] LABS: CREATININE SERUM 1.05 MG/DL (0.60-1.30)
[2019-12-05 09:02] LABS: MAGNESIUM 1.9 MG/DL (1.6-2.4)
[2019-12-05 09:24] LABS: FREE T4 (FREE THYROXINE) 0.9 NG/DL (0.70-1.48)
== END ==
LOC: LAB 08:23
PROVIDERS: ATTEND Family Medicine
DX: R53.83 Other fatigue (principal); Z85.858 Personal history of malignant neoplasm of other endocrine glands
CPT/HCPCS: 36415; 80053; 82306; 83735; 84439; 84443; 85025

== ENCOUNTER → 2020-03-04 | Outpatient (CLI) | payer OTHER | LOC: LAB 15:10 | PROVIDERS: ATTEND Surgery Surgical Oncology | DX: E21.3 Hyperparathyroidism, unspecified (principal) | CPT/HCPCS: 36415; 82306; 82310; 83970 ==

== ENCOUNTER → 2023-01-05 | Outpatient (CLI) | payer OTHER ==
[~2023-01-05] MED LIST changes: +FLUV100T21 PO; -FLUV100T3 PO; -MAGN400T8 PO; +MGX400T PO; -SULF1TAB35 PO; +SULF1TAB38 PO
[2023-01-05 10:21] LABS: HEMATOCRIT 40 % (35-52); HEMOGLOBIN 12.8 g/dL (11.5-16.0); MEAN CORPUSCULAR HEMOGLOBIN 26 pg (25-34); MEAN CORPUSCULAR HGB CONC 32 g/dL (32-36); MEAN CORPUSCULAR VOLUME 79 fL (80-99); MEAN PLATELET VOLUME 10.2 fL (9.0-12.2); PLATELET COUNT 239 10^3/uL (130-400); WHITE BLOOD COUNT 9.5 10^3/uL (4.3-11.0)
[2023-01-05 10:31] LABS: ALBUMIN 4.6 GM/DL (3.2-4.5)
[2023-01-05 10:32] LABS: CHLORIDE 103 MMOL/L (98-107); POTASSIUM 4.2 MMOL/L (3.6-5.0); SODIUM 138 MMOL/L (135-145)
[2023-01-05 10:33] LABS: CALCIUM 9.8 MG/DL (8.5-10.1)
[2023-01-05 10:34] LABS: GLUCOSE 95 MG/DL (70-105); TOTAL PROTEIN 8.2 GM/DL (6.4-8.2)
[2023-01-05 10:35] LABS: CARBON DIOXIDE 24 MMOL/L (21-32)
[2023-01-05 10:36] LABS: BILIRUBIN,TOTAL 0.8 MG/DL (0.1-1.0)
[2023-01-05 10:37] LABS: ALKALINE PHOSPHATASE 75 U/L (40-136)
[2023-01-05 10:38] LABS: CREATININE SERUM 1.02 MG/DL (0.60-1.30); GFR ESTIMATED 73
[2023-01-05 10:39] LABS: BUN/CREATININE RATIO 9
[2023-01-05 10:41] LABS: ALANINE AMINOTRANSFERASE 16 U/L (0-55)
--- NOTE | 2023-01-05 10:51 | Diagnostic Imaging Report ---
Clinical indication: Patient with sudden onset left-sided pain that radiates front to back. Exam: CT exam of the abdomen and pelvis is performed without IV or oral contrast using stone protocol. Coronal and sagittal reformatted images were created. Auto Exposure Controls were utilized during the CT exam to meet ALARA standards for radiation dose reduction. Comparisons: None. Findings: Visualized lung bases: There is a small area of consolidation involving the lingular lung base region in the periphery which measures grossly 2 cm with adjacent groundglass opacification. The remainder of the lung bases are clear. Liver: Unremarkable as visualized. Gallbladder: Unremarkable. Pancreas: Unremarkable as visualized. Spleen: Unremarkable as visualized. Adrenal glands: Unremarkable. Kidneys/ ureters: Unremarkable as visualized. Aorta: Unremarkable as visualized. Intraabdominal/ retroperitoneal contents: There is a small amount of free fluid within the pelvis. Intestines: Unremarkable as visualized. Appendix: Unremarkable. Bladder: Unremarkable as visualized. Pelvic organs: Unremarkable as visualized. Extra abdominal/ pelvis regions: Unremarkable. Abdominal wall: Unremarkable. Bones: Unremarkable. Impression: 1: There is a moderate amount of stool throughout the colon which may be seen with constipation. 2: Otherwise, there is no CT evidence of acute abdominal or pelvic process. There are no urinary tract stones. The appendix is unremarkable. 3: There is a 2 cm area of consolidation involving the lingular lung base region with adjacent groundglass opacification concerning for infectious or inflammatory process. 4: There is a small amount of free fluid in the pelvis which may be physiologic. Dictated by: Dictated on workstation # [id number]
== END ==
LOC: RAD 10:13
PROVIDERS: ATTEND Nurse Practitioner Family
DX: J18.1 Lobar pneumonia, unspecified organism (principal); R91.8 Other nonspecific abnormal finding of lung field; R93.89 Abnormal findings on diagnostic imaging of other specified body structures
CPT/HCPCS: 36415; 74176; 80053; 85027

== ENCOUNTER → 2023-01-09 | Outpatient (CLI) | payer OTHER ==
--- NOTE | 2023-01-09 13:24 | Diagnostic Imaging Report ---
INDICATION: PNEUMONIA COMPARISON: None FINDINGS: Frontal and lateral views of the chest demonstrate normal heart size and pulmonary vascularity. The lungs are clear. There are no signs of infiltrate, pleural effusions or pneumothoraces. The visualized osseous structures show no acute abnormalities. IMPRESSION: 1. No acute process. No signs of infiltrates, effusions or pneumothoraces. Dictated by: Dictated on workstation # [id number]
== END ==
LOC: RAD 12:18
PROVIDERS: ATTEND Nurse Practitioner Family
DX: J18.9 Pneumonia, unspecified organism (principal)
CPT/HCPCS: 71046

== ENCOUNTER → 2023-02-28 | Outpatient (CLI) | payer OTHER ==
[~2023-02-28] MED LIST changes: +HOLD METFORMIN - RECEIVED CONTRAST 20 ML VIAL IV SCH; +IOHEXOL 350 MG/ML 100 ML (OMNIPAQUE 350) VIAL IV ONE; +NS 100 ML (IVPB) BAG IV ONE
--- NOTE | 2023-02-28 10:11 | Diagnostic Imaging Report ---
PROCEDURE: CT chest with contrast only. TECHNIQUE: Multiple contiguous axial images were obtained through the chest after administration of intravenous contrast. Auto Exposure Controls were utilized during the CT exam to meet ALARA standards for radiation dose reduction. INDICATION: J18.9, follow-up atypical pneumonia. COMPARISON: 01/09/2023 and 01/05/2023 FINDINGS: No significant adenopathy within chest. No aneurysmal dilatation of the thoracic aorta. The heart is within normal limits in size. No pericardial effusion. No pleural effusion. The trachea is patent. No pneumothorax. Focal reticular opacities with associated tree-in-bud nodularity is identified within the lingula. The lungs are otherwise clear. The visualized upper abdomen is unremarkable. Mild scattered osseous degenerative changes without acute osseous abnormality. IMPRESSION: Mild reticular opacities and tree-in-bud nodularity within the lingula. This typically relates underlying small airway versus small vessel infection or inflammation. This appears significantly improved when compared to prior CT of abdomen and pelvis from December 2022. The remainder of the lungs otherwise appear clear. Dictated by: Dictated on workstation # [id number]
== END ==
LOC: RAD 08:52
PROVIDERS: ATTEND Nurse Practitioner
DX: J18.9 Pneumonia, unspecified organism (principal); R91.8 Other nonspecific abnormal finding of lung field; R10.9 Unspecified abdominal pain
CPT/HCPCS: 71260